=== PATIENT | male | born 1970 | race Hispanic/Latino ===

== ENCOUNTER 2017-12-15 19:54 | Emergency (ER) | payer MEDICARE, OTHER ==
[2017-12-15] MEDS ORDERED: TETRACAINE HCL 0.5% 4 ML OPHTH SOLN ONE ×2 (20:20→20:27)
[2017-12-15] MEDS ORDERED: NA BORATE/BORIC AC/H2O/NACL 120 ML OPHTH IRRIG SOLN ONE ×2 (20:20→20:28)
[2017-12-15] MEDS ORDERED: FLUORESCEIN SODIUM 0.6 MG STRIP ONE ×2 (20:20→20:28)
== END 2017-12-15 20:52 | disposition home or self-care (01) ==
LOC: EDH 19:54
DX: S05.01XA Injury of conjunctiva and corneal abrasion without foreign body, right eye, initial encounter (principal); I25.10 Atherosclerotic heart disease of native coronary artery without angina pectoris; E78.5 Hyperlipidemia, unspecified; E11.9 Type 2 diabetes mellitus without complications; Z79.4 Long term (current) use of insulin; Z95.1 Presence of aortocoronary bypass graft; X58.XXXA Exposure to other specified factors, initial encounter; Y93.89 Activity, other specified; Y92.89 Other specified places as the place of occurrence of the external cause; Y99.8 Other external cause status

== ENCOUNTER 2018-05-08 12:02 | Emergency (ER) | payer OTHER ==
[2018-05-08] MEDS ORDERED: SODIUM CHLORIDE 0.9% 1000ML 1,000 ML IV ONE (13:57)
[2018-05-08 14:12] LABS: BASOPHILS % (AUTO) 0.4 % (0.0-5.0); EOSINOPHILS % (AUTO) 0.7 % (0.0-8.0); HEMATOCRIT 47.3 % (42-54); LYMPHOCYTES % (AUTO) 37.9 % (21.0-51.0); MEAN CORPUSCULAR HEMOGLOBIN 31.6 pg (27.0-33.0); MEAN CORPUSCULAR HGB CONC 34.3 g/dL (32.0-36.0); MEAN CORPUSCULAR VOLUME 92.2 fL (79-99); MONOCYTES % (AUTO) 8.1 % (3.0-13.0); NEUTROPHILS % (AUTO) 52.9 % (40.0-77.0); NUCLEATED RED BLOOD CELLS 0.1 % (0.0-0.19); PLATELET COUNT (AUTO) 173 K/uL (130-400); RED BLOOD CELL COUNT(AUTO) 5.13 MIL/uL (4.50-6.20); RED CELL DISTRIBUTION WIDTH 12.6 % (11.0-15.5); WHITE BLOOD COUNT (AUTO) 6.9 K/uL (4.8-10.8)
[2018-05-08 14:25] LABS: CREATININE 0.8 mg/dL (0.5-1.5); POTASSIUM 3.8 mmol/L (3.5-5.1)
[2018-05-08] MEDS ORDERED: IOHEXOL-350 75 ML VIAL IV ONE (14:25)
[2018-05-08 14:30] LABS: BILIRUBIN,TOTAL 0.5 mg/dL (0.2-1.0); TOTAL PROTEIN, SERUM 7.9 g/dL (6.0-8.3)
[2018-05-08 14:54] LABS: OCCULT BLOOD STOOL SINGLE ONLY POSITIVE (NEGATIVE)
== END 2018-05-08 16:20 | disposition home or self-care (01) ==
LOC: EDH 12:02
DX: K52.9 Noninfective gastroenteritis and colitis, unspecified (principal); E11.9 Type 2 diabetes mellitus without complications; E78.5 Hyperlipidemia, unspecified; I25.10 Atherosclerotic heart disease of native coronary artery without angina pectoris; Z91.041 Radiographic dye allergy status; Z87.891 Personal history of nicotine dependence; Z98.890 Other specified postprocedural states
CPT/HCPCS: 36415; 74177; 80053; 82270; 83630; 85025; 87040 ×2; 87046; 87324; 87804 ×2; 96360; 96361; 99284; J7030; Q9967

== ENCOUNTER → 2018-06-05 | Outpatient (CLI) | payer OTHER | END | disposition home or self-care (01) | LOC: SHCH 14:45 | PROVIDERS: ATTEND Internal Medicine Cardiovascular Disease | DX: I51.7 Cardiomegaly (principal) | CPT/HCPCS: 93306 ==

== ENCOUNTER → 2018-06-13 | Outpatient (CLI) | payer OTHER ==
[~2018-06-13] VITALS: Ht 167.6 cm; Wt 95.3 kg
[~2018-06-13] MED LIST: REGADENOSON 0.4 MG/5 ML PF SYG IVP ONE; REGADENOSON 0.4 MG/5 ML PF SYG IVP SCH
== END | disposition home or self-care (01) ==
LOC: SHCH 10:00
PROVIDERS: ATTEND Internal Medicine Cardiovascular Disease
DX: I25.9 Chronic ischemic heart disease, unspecified (principal)
CPT/HCPCS: 78452; 93017; 96374; A9500 ×2; J2785

== ENCOUNTER 2018-07-16 20:37 | Emergency (ER) | payer OTHER ==
[2018-07-16 21:16] LABS: APPEARANCE,URINE Clear (CLEAR); BILIRUBIN,URINE Negative (NEGATIVE); COLOR,URINE Yellow (YELLOW); GLUCOSE, URINE (UA) >=1000 mg/dL (NEGATIVE); KETONES,URINE Trace mg/dL (NEGATIVE); LEUKOCYTE ESTERASE ,URINE Negative (NEGATIVE); NITRATE,URINE Negative (NEGATIVE); OCCULT BLOOD,URINE Negative (NEGATIVE); PROTEIN,URINE Negative (NEGATIVE)
[2018-07-16 21:33] LABS: BACTERIA,URINE None Seen /HPF (None Seen); RBC,URINE None Seen /HPF (0-1); SQUAMOUS EPITHELIAL CELL,UR None Seen /HPF (0-2); WBC,URINE None Seen /HPF (0-1)
[2018-07-16] MEDS ORDERED: ONDANSETRON HCL 4 MG/2 ML VIAL ONE (21:34)
[2018-07-16 21:45] LABS: BASOPHILS % (AUTO) 0.9 % (0.0-5.0); EOSINOPHILS % (AUTO) 1.2 % (0.0-8.0); HEMATOCRIT 44.6 % (42-54); LYMPHOCYTES % (AUTO) 41.3 % (21.0-51.0); MEAN CORPUSCULAR HEMOGLOBIN 32.4 pg (27.0-33.0); MEAN CORPUSCULAR VOLUME 92.6 fL (79-99); MONOCYTES % (AUTO) 8.9 % (3.0-13.0); NEUTROPHILS % (AUTO) 47.7 % (40.0-77.0); NUCLEATED RED BLOOD CELLS 0.2 % (0.0-0.19); PLATELET COUNT (AUTO) 155 K/uL (130-400); RED BLOOD CELL COUNT(AUTO) 4.81 MIL/uL (4.50-6.20); RED CELL DISTRIBUTION WIDTH 12.4 % (11.0-15.5); WHITE BLOOD COUNT (AUTO) 6.8 K/uL (4.8-10.8)
[2018-07-16 21:58] LABS: CREATININE 0.9 mg/dL (0.5-1.5); POTASSIUM 4.1 mmol/L (3.5-5.1)
[2018-07-16 22:02] LABS: ALBUMIN 3.8 g/dL (3.5-5.0); BILIRUBIN,TOTAL 0.5 mg/dL (0.2-1.0); TOTAL PROTEIN, SERUM 7.4 g/dL (6.0-8.3)
[2018-07-16] MEDS ORDERED: LIDOCAINE HCL 2% VISCOUS 15 ML UDCUP ONE (23:43)
[2018-07-16] MEDS ORDERED: MAG HYDROX/AL HYDROX/SIMETH ES 30 ML SUSP UDCUP ONE (23:43)
[2018-07-16] MEDS ORDERED: INSULIN HUMULIN R 100 UNIT/ML 3ML ONE (23:44)
== END 2018-07-17 00:13 | disposition home or self-care (01) ==
LOC: EDH 20:37
DX: K29.70 Gastritis, unspecified, without bleeding (principal); E11.65 Type 2 diabetes mellitus with hyperglycemia; E78.5 Hyperlipidemia, unspecified; I25.10 Atherosclerotic heart disease of native coronary artery without angina pectoris; Z79.4 Long term (current) use of insulin; Z87.891 Personal history of nicotine dependence; Z91.041 Radiographic dye allergy status
CPT/HCPCS: 36415; 74176; 80053; 81001; 82550; 82948; 83690; 84484; 85025; 93005; 96361; 96374; 96375; 99285; J1815; J2405

== ENCOUNTER 2018-10-07 22:28 | Emergency (ER) | payer OTHER ==
[2018-10-07] MEDS ORDERED: FAMOTIDINE/PF 20 MG/2 ML VIAL IV ONE (23:26)
[2018-10-07 23:51] LABS: BASOPHILS % (AUTO) 0.6 % (0.0-5.0); EOSINOPHILS % (AUTO) 0.7 % (0.0-8.0); HEMATOCRIT 44.7 % (42-54); MEAN CORPUSCULAR HEMOGLOBIN 31.5 pg (27.0-33.0); MEAN CORPUSCULAR HGB CONC 34.3 g/dL (32.0-36.0); MONOCYTES % (AUTO) 7.2 % (3.0-13.0); NEUTROPHILS % (AUTO) 49.5 % (40.0-77.0); NUCLEATED RED BLOOD CELLS 0.1 % (0.0-0.19); PLATELET COUNT (AUTO) 146 K/uL (130-400); RED BLOOD CELL COUNT(AUTO) 4.86 MIL/uL (4.50-6.20); RED CELL DISTRIBUTION WIDTH 12.7 % (11.0-15.5)
[2018-10-08 00:08] LABS: INR 0.94 (0.85-1.15); PARTIAL THROMBOPLASTIN TIME 23.8 SEC (26.3-35.5); PROTHROMBIN TIME 9.9 SEC (9.6-11.6)
[2018-10-08 00:11] LABS: ALBUMIN 3.8 g/dL (3.5-5.0); BILIRUBIN,TOTAL 0.8 mg/dL (0.2-1.0); CREATININE 0.9 mg/dL (0.5-1.5); MAGNESIUM 2.5 mg/dL (1.80-2.40); POTASSIUM 4.4 mmol/L (3.5-5.1); TOTAL PROTEIN, SERUM 7.2 g/dL (6.0-8.3)
[2018-10-08 00:39] LABS: B-TYPE NATRIURETIC PEPTIDE 16 pg/mL (0-100)
[2018-10-08] MEDS ORDERED: INSULIN HUMULIN R 100 UNIT/ML 3ML ONE (01:00)
[2018-10-08] MEDS ORDERED: SODIUM CHLORIDE 0.9% 500ML 500 ML IV ONE (01:00)
[2018-10-08] MEDS ORDERED: METOCLOPRAMIDE 10 MG/2 ML VIAL ONE (01:38)
== END 2018-10-08 02:05 | disposition home or self-care (01) ==
LOC: EDH 22:28
DX: E11.65 Type 2 diabetes mellitus with hyperglycemia (principal); E86.9 Volume depletion, unspecified; R10.13 Epigastric pain; K21.9 Gastro-esophageal reflux disease without esophagitis; I25.10 Atherosclerotic heart disease of native coronary artery without angina pectoris; E78.5 Hyperlipidemia, unspecified; Z79.4 Long term (current) use of insulin; Z91.11 Patient's noncompliance with dietary regimen; Z87.891 Personal history of nicotine dependence; Z91.041 Radiographic dye allergy status
CPT/HCPCS: 36415; 71045; 80053; 82550; 83605; 83690; 83735; 83880; 84484; 85025; 85610; 85730; 93005; 96374; 96375 ×2; 99285; J1815; J2765; J3490; J7040

== ENCOUNTER → 2018-11-28 | Outpatient (CLI) | payer OTHER | END | disposition home or self-care (01) | LOC: RAH 13:18 | PROVIDERS: ATTEND Family Medicine | DX: I65.23 Occlusion and stenosis of bilateral carotid arteries (principal); I10 Essential (primary) hypertension | CPT/HCPCS: 93880 ==

== ENCOUNTER 2019-02-28 03:12 | Emergency (ER) | payer OTHER ==
[2019-02-28 03:33] LABS: BASOPHILS % (AUTO) 0.6 % (0.0-5.0); EOSINOPHILS % (AUTO) 1.3 % (0.0-8.0); HEMATOCRIT 45.4 % (42-54); LYMPHOCYTES % (AUTO) 52.3 % (21.0-51.0); MEAN CORPUSCULAR HEMOGLOBIN 30.8 pg (27.0-33.0); MEAN CORPUSCULAR HGB CONC 33.3 g/dL (32.0-36.0); MEAN CORPUSCULAR VOLUME 92.7 fL (79-99); MONOCYTES % (AUTO) 6.8 % (3.0-13.0); NEUTROPHILS % (AUTO) 38.7 % (40.0-77.0); PLATELET COUNT (AUTO) 176 K/uL (130-400); RED CELL DISTRIBUTION WIDTH 12.1 % (11.0-15.5); WHITE BLOOD COUNT (AUTO) 7.8 K/uL (4.8-10.8)
[2019-02-28 03:43] LABS: CREATININE 0.7 mg/dL (0.5-1.5); POTASSIUM 4.4 mmol/L (3.5-5.1)
[2019-02-28 03:48] LABS: ALBUMIN 3.9 g/dL (3.5-5.0); BILIRUBIN,TOTAL 0.5 mg/dL (0.2-1.0); CRP QUANTITATIVE 1.9 mg/L (0.00-9.0); TOTAL PROTEIN, SERUM 7.7 g/dL (6.0-8.3)
[2019-02-28 04:04] LABS: INR 0.91 (0.85-1.15); PROTHROMBIN TIME 9.6 SEC (9.6-11.6)
[2019-02-28] MEDS ORDERED: ASPIRIN 325 MG TABLET ONE (04:08)
[2019-02-28] MEDS ORDERED: TRAMADOL HCL 50 MG TABLET ONE (04:08)
[2019-02-28 04:44] LABS: ERYTHROCYTE SEDIMENTATION RATE 10 MM/HR (0-20)
== END 2019-02-28 06:04 | disposition home or self-care (01) ==
LOC: EDH 03:12
DX: M79.632 Pain in left forearm (principal); E11.65 Type 2 diabetes mellitus with hyperglycemia; I10 Essential (primary) hypertension; E78.5 Hyperlipidemia, unspecified; I25.10 Atherosclerotic heart disease of native coronary artery without angina pectoris; Z91.041 Radiographic dye allergy status; Z98.890 Other specified postprocedural states
CPT/HCPCS: 36415; 71045; 73070; 80053; 82550; 84484; 85025; 85610; 85651; 85730; 86140; 93005; 93971

== ENCOUNTER 2019-04-09 15:54 | Observation (INO) | payer OTHER ==
[2019-04-09] VITALS (17 sets, daily range): BP systolic 109–135; BP diastolic 66–85
[~2019-04-09 15:54] MED LIST changes: +CLOP75TA14 PO; +FISH1CAP20 PO; +HUMLIS7525 SQ; -REGADENOSON 0.4 MG/5 ML PF SYG IVP ONE; -REGADENOSON 0.4 MG/5 ML PF SYG IVP SCH; +SIMV80TA91 PO
[2019-04-09] MEDS ORDERED: ONDANSETRON HCL 4 MG/2 ML VIAL ONE (16:16)
[2019-04-09] MEDS ORDERED: TETANUS/DIPHTHERIA TOXOID [ADULT] 0.5 ML VIAL IM ONE (16:16)
[2019-04-09] MEDS ORDERED: CEFAZOLIN SODIUM 1 GM VIAL ONE ×2 (16:16→19:22)
[2019-04-09] MEDS ORDERED: MORPHINE SULFATE 4 MG/1ML SYG ONE (16:16)
[2019-04-09] MEDS ORDERED: SODIUM CHLORIDE 0.9% 1000ML 1,000 ML IV ONE (16:17)
[2019-04-09] MEDS ORDERED: SODIUM CHLORIDE 0.9% 100 ML IV ONE (16:19)
[2019-04-09 16:43] LABS: ABG OXYGEN SATURATION 57.6 % (95.0-99.0); BASE EXCESS,VENOUS BLOOD GAS -6.4 (-2.0-3.0); HCO3,VENOUS BLOOD GAS 19.2 (21.0-28.0); PCO2,VENOUS BLOOD GAS 38 (35-48); PH,VENOUS BLOOD GAS 7.316 (7.350-7.450)
[2019-04-09 16:46] LABS: BASOPHILS % (AUTO) 0.5 % (0.0-5.0); EOSINOPHILS % (AUTO) 0.4 % (0.0-8.0); HEMATOCRIT 43.8 % (42-54); LYMPHOCYTES % (AUTO) 35.8 % (21.0-51.0); MEAN CORPUSCULAR HEMOGLOBIN 30.7 pg (27.0-33.0); MEAN CORPUSCULAR HGB CONC 33.8 g/dL (32.0-36.0); MEAN CORPUSCULAR VOLUME 90.9 fL (79-99); NEUTROPHILS % (AUTO) 57.1 % (40.0-77.0); PLATELET COUNT (AUTO) 155 K/uL (130-400); RED BLOOD CELL COUNT(AUTO) 4.82 MIL/uL (4.50-6.20); RED CELL DISTRIBUTION WIDTH 12.6 % (11.0-15.5); WHITE BLOOD COUNT (AUTO) 8.4 K/uL (4.8-10.8)
[2019-04-09 17:19] LABS: CREATININE 0.8 mg/dL (0.5-1.5); POTASSIUM 4.2 mmol/L (3.5-5.1)
[2019-04-09 17:21] LABS: INR 0.94 (0.85-1.15); PARTIAL THROMBOPLASTIN TIME 22.6 SEC (26.3-35.5); PROTHROMBIN TIME 9.9 SEC (9.6-11.6)
[2019-04-09 17:23] LABS: ALBUMIN 3.9 g/dL (3.5-5.0); BILIRUBIN,TOTAL 0.5 mg/dL (0.2-1.0)
[2019-04-09] MEDS ORDERED: ROPIVACAINE 0.5% 5MG/ML 30ML IJ ONE (19:20)
[2019-04-09] MEDS ORDERED: MIDAZOLAM HCL 1 MG/ML 2ML VIAL ONE ×2 (19:21→20:09)
[2019-04-09] MEDS ORDERED: FENTANYL CITRATE PF 50 MCG/1 ML 2ML VIAL ONE ×2 (19:21→20:11)
[2019-04-09] MEDS ORDERED: KETAMINE 50MG/ML SYRINGE 50 MG/ML DISP.SYRIN IV ONE ×2 (19:47→20:17)
[2019-04-09] MEDS ORDERED: SODIUM CHLORIDE 0.9% 1000ML 1,000 ML IV SCH (20:00)
[2019-04-09] MEDS ORDERED: LIDOCAINE HCL 1% 20 ML VIAL ONE (20:05)
[2019-04-09] MEDS ORDERED: BUPIVACAINE/PF 0.5% 30ML VIAL ONE (20:05)
[2019-04-09] MEDS: SODIUM CHLORIDE 0.9% 1000ML 1,000 ML IV SCH ×2 (20:40→22:58)
[2019-04-09] MEDS ORDERED: KETOROLAC TROMETHAMINE 15MG/ML IV PRN (20:45)
[2019-04-09] MEDS ORDERED: HYDROCODONE/ACETAMINOPHEN 5/325 MG TAB PO PRN ×2 (20:45)
[2019-04-09] MEDS ORDERED: POTASSIUM CHLORIDE 10% ELIXIR 20 MEQ/15 ML UDCUP PO PRN (20:45)
[2019-04-09] MEDS ORDERED: DIPHENHYDRAMINE HCL 25 MG CAPSULE PO PRN (20:45)
[2019-04-09] MEDS ORDERED: POTASSIUM CHLORIDE 20MEQ/100ML 100 ML IV PRN (20:45)
[2019-04-09] MEDS ORDERED: POTASSIUM CHLORIDE 20 MEQ ERTAB PO PRN (20:45)
[2019-04-09] MEDS ORDERED: TEMAZEPAM 15 MG CAPSULE PO PRN (20:45)
[2019-04-09] MEDS ORDERED: LIDOCAINE HCL-MPF 1% 2ML VIAL IV PRN (20:45)
[2019-04-09] MEDS: INSULIN HUMULIN R 100 UNIT/ML 3ML SQ SCH (21:00)
[2019-04-09 22:31] LABS: CREATININE 0.6 mg/dL (0.5-1.5); POTASSIUM 3.7 mmol/L (3.5-5.1)
[2019-04-10] VITALS (7 sets, daily range): BP systolic 96–137; BP diastolic 50–74
[2019-04-10] MEDS: CEFAZOLIN SODIUM 1 GM VIAL IVP SCH ×2 (04:16→11:32)
[2019-04-10] MEDS: SODIUM CHLORIDE 0.9% 1000ML 1,000 ML IV SCH (05:33)
[2019-04-10] MEDS: INSULIN HUMULIN R 100 UNIT/ML 3ML SQ SCH ×2 (06:44→11:40)
[2019-04-10] MEDS ORDERED: CEFAZOLIN SODIUM 1 GM VIAL IVP SCH (08:00)
[2019-04-10] MEDS ORDERED: ENOXAPARIN SODIUM 40 MG/0.4 ML SYRINGE SQ SCH (09:00)
[2019-04-10] MEDS ORDERED: CEPH500B PO (12:07)
[2019-04-10] MEDS ORDERED: ACET1TAB12 PO (12:07)
--- NOTE | 2019-04-10 14:00 | NUR ---
DISCHARGE PATIENT GIVEN DISCHARGE INSTRUCTIONS VIA TEACH BACK. 20G PIV TO RAC DISCONTINUED, TIP INTACT. PATIENT TO FOLLOW UP WITH DR. OTERO ON 04/18/19 AT 1315. WOUND CARE AND SIGNS AND SYMPTOMS OF INFECTION INSTRUCTIONS GIVEN AND VERBALLY EXPLAINED. PATIENT VOICED UNDERSTANDING. CEPHALEXIN 500MG 1 CAP PO Q8H X 7 DAYS AND TYLENOL #3 1 TAB PO Q6H/PRN CALLED INTO [facility] BY DR. OTERO. PATIENT STABLE AT THIS TIME AND DENIES ANY PAIN. DEMETRICE CELESTIN WHEELED PATIENT TO LOBBY.
== END 2019-04-10 14:00 | disposition home or self-care (01) ==
LOC: EDH 15:54 → EDHIP 17:00 → 4BH 18:39
PROVIDERS: ADMIT Orthopaedic Surgery; ATTEND Orthopaedic Surgery
DX: S61.243A Puncture wound with foreign body of left middle finger without damage to nail, initial encounter (principal); S61.245A Puncture wound with foreign body of left ring finger without damage to nail, initial encounter; E78.5 Hyperlipidemia, unspecified; E11.65 Type 2 diabetes mellitus with hyperglycemia; I25.810 Atherosclerosis of coronary artery bypass graft(s) without angina pectoris; E78.00 Pure hypercholesterolemia, unspecified; Z79.4 Long term (current) use of insulin; Z91.041 Radiographic dye allergy status; W29.4XXA Contact with nail gun, initial encounter; Y93.89 Activity, other specified; Y92.89 Other specified places as the place of occurrence of the external cause; Y99.8 Other external cause status
CPT/HCPCS: 10120; 36415; 36600; 73140; 80053; 82010; 82803; 82948 ×5; 85025; 85610; 85730; 88300; 93005; 96372; 96374; 96376; 99284; A4930; A6223; A6445; G0378 ×8; J0690 ×4; J1650; J1815 ×2; J2250 ×2; J2270; J2405; J2795; J3010 ×2; J3490 ×3; J7030; 80048; 90714

== ENCOUNTER 2019-05-27 18:09 | Emergency (ER) | payer OTHER ==
[~2019-05-27 18:09] MED LIST changes: +ACET1TAB12 PO; +CEPH500B PO
[2019-05-27 19:17] LABS: BASOPHILS % (AUTO) 0.4 % (0.0-5.0); EOSINOPHILS % (AUTO) 1.3 % (0.0-8.0); HEMATOCRIT 42.4 % (42-54); LYMPHOCYTES % (AUTO) 42.5 % (21.0-51.0); MEAN CORPUSCULAR HEMOGLOBIN 30.6 pg (27.0-33.0); MEAN CORPUSCULAR HGB CONC 33.7 g/dL (32.0-36.0); MEAN CORPUSCULAR VOLUME 90.6 fL (79-99); MONOCYTES % (AUTO) 6.9 % (3.0-13.0); NEUTROPHILS % (AUTO) 48.8 % (40.0-77.0); PLATELET COUNT (AUTO) 152 K/uL (130-400); RED BLOOD CELL COUNT(AUTO) 4.68 MIL/uL (4.50-6.20); RED CELL DISTRIBUTION WIDTH 12.7 % (11.0-15.5); WHITE BLOOD COUNT (AUTO) 7.1 K/uL (4.8-10.8)
[2019-05-27 19:38] LABS: CREATININE 0.9 mg/dL (0.5-1.5); POTASSIUM 4.1 mmol/L (3.5-5.1)
[2019-05-27 19:43] LABS: ALBUMIN 3.5 g/dL (3.5-5.0); BILIRUBIN,TOTAL 0.5 mg/dL (0.2-1.0); TOTAL PROTEIN, SERUM 7.1 g/dL (6.0-8.3)
[2019-05-27] MEDS ORDERED: SODIUM CHLORIDE 0.9% 1000ML 1,000 ML IV ONE (20:22)
[2019-05-27] MEDS ORDERED: INSULIN HUMULIN R 100 UNIT/ML 3ML ONE (20:22)
== END 2019-05-27 22:30 | disposition home or self-care (01) ==
LOC: EDH 18:09
DX: E11.621 Type 2 diabetes mellitus with foot ulcer (principal); E11.65 Type 2 diabetes mellitus with hyperglycemia; I25.810 Atherosclerosis of coronary artery bypass graft(s) without angina pectoris; E78.5 Hyperlipidemia, unspecified; Z95.1 Presence of aortocoronary bypass graft; Z91.041 Radiographic dye allergy status
CPT/HCPCS: 36415; 73620; 80053; 82948; 85025; 85651; 86140; 87040 ×2; 96361; 96374; 99284; J1815; J7030

== ENCOUNTER → 2019-07-10 | Outpatient (CLI) | payer OTHER ==
[~2019-07-10] MED LIST changes: +AMOX-426 PO; +CLIN300C9 PO
== END | disposition home or self-care (01) ==
LOC: RAH 09:45
PROVIDERS: ATTEND Family Medicine
DX: I08.2 Rheumatic disorders of both aortic and tricuspid valves (principal); I11.9 Hypertensive heart disease without heart failure; I49.3 Ventricular premature depolarization; I25.2 Old myocardial infarction
CPT/HCPCS: 93306; 93356

== ENCOUNTER 2019-10-06 07:53 | Inpatient (IN) | payer OTHER ==
[~2019-10-06] VITALS: Ht 165.1 cm; Wt 86.4 kg
[~2019-10-06 07:53] MED LIST changes: -AMOX-426 PO; -CLIN300C9 PO
[2019-10-06] MEDS ORDERED: POTASSIUM CHLORIDE 20MEQ/100ML 100 ML IV ONE (08:21)
[2019-10-06] MEDS ORDERED: ACETAMINOPHEN EXTRA STRENGTH 500 MG TABLET ONE (08:54)
[2019-10-06 09:13] LABS: BASOPHILS % (AUTO) 0.2 % (0.0-5.0); EOSINOPHILS % (AUTO) 0.1 % (0.0-8.0); HEMATOCRIT 44.6 % (42-54); LYMPHOCYTES % (AUTO) 6.8 % (21.0-51.0); MEAN CORPUSCULAR HEMOGLOBIN 31.1 pg (27.0-33.0); MEAN CORPUSCULAR HGB CONC 33.6 g/dL (32.0-36.0); MEAN CORPUSCULAR VOLUME 92.5 fL (79-99); MONOCYTES % (AUTO) 4.3 % (3.0-13.0); NEUTROPHILS % (AUTO) 88.3 % (40.0-77.0); PLATELET COUNT (AUTO) 137 K/uL (130-400); RED BLOOD CELL COUNT(AUTO) 4.82 MIL/uL (4.50-6.20); RED CELL DISTRIBUTION WIDTH 12.3 % (11.0-15.5)
[2019-10-06] MEDS ORDERED: CEFTRIAXONE SODIUM 1 GM ONE (09:48)
[2019-10-06 09:52] LABS: INR 0.93 (0.85-1.15); PARTIAL THROMBOPLASTIN TIME 24.6 SEC (26.3-35.5); PROTHROMBIN TIME 10.1 SEC (9.6-11.6)
[2019-10-06 09:56] LABS: ALANINE AMINOTRANSFERASE 21 U/L (12-78); ALBUMIN 3.6 g/dL (3.5-5.0); ASPARTATE AMINOTRANSFERASE 10 U/L (10-37); BILIRUBIN,TOTAL 0.8 mg/dL (0.2-1.0); CARBON DIOXIDE 24 mmol/L (21-32); CHLORIDE 102 mmol/L (101-111); CREATINE KINASE, TOTAL 64 U/L (21-232); CREATININE 0.8 mg/dL (0.5-1.5); GLOMERULAR FILTR. RATE CALC 108 mL/min (>60); GLUCOSE,RANDOM 280 mg/dL (70-105); MYOGLOBIN 31 ng/mL (10-92); POTASSIUM 3.9 mmol/L (3.5-5.1); SODIUM SERUM 134 mmol/L (136-145); TOTAL PROTEIN, SERUM 6.9 g/dL (6.0-8.3); TROPONIN I < 0.04 ng/mL (0.00-0.06); UREA NITROGEN, BLOOD 12 mg/dL (7-18)
[2019-10-06 12:02] LABS: APPEARANCE,URINE CLEAR (CLEAR); BILIRUBIN,URINE NEGATIVE (NEGATIVE); COLOR,URINE YELLOW (YELLOW); GLUCOSE, URINE (UA) >=1000 mg/dL (NEGATIVE); KETONES,URINE 15 mg/dL (NEGATIVE); LEUKOCYTE ESTERASE ,URINE NEGATIVE (NEGATIVE); NITRATE,URINE NEGATIVE (NEGATIVE); OCCULT BLOOD,URINE NEGATIVE (NEGATIVE); PH,URINE 5.5 (5.0-8.0); PROTEIN,URINE NEGATIVE (NEGATIVE); UROBILINOGEN,URINE 0.2 mg/dL (0.2-1.0)
[2019-10-06 12:38] LABS: BACTERIA,URINE Rare /HPF (None Seen); RBC,URINE None Seen /HPF (0-1); SQUAMOUS EPITHELIAL CELL,UR Rare /HPF (0-2); WBC,URINE 0-1 /HPF (0-1)
[2019-10-06] MEDS ORDERED: VANCOMYCIN 1GM+NS 250ML 250 ML IV ONE (21:21)
[2019-10-06] MEDS ORDERED: ZOSYN 3.375GM+NS 50ML 50 ML IV ONE (21:21)
[2019-10-07] MEDS ORDERED: VANCOMYCIN PROTOCOL PER PHARMACY IV SCH ×2 (00:15→13:15)
[2019-10-07] MEDS ORDERED: PHARMACY COMMUNICATION MISC SCH (00:15)
[2019-10-07] MEDS: ZOSYN 3.375GM+NS 50ML 50 ML IV SCH ×5 (01:00→21:15)
[2019-10-07] MEDS ORDERED: ZOSYN 3.375GM+NS 50ML 50 ML IV ONE ×3 (04:01→23:47)
[2019-10-07 08:42] LABS: HEMATOCRIT 41.9 % (42-54); MEAN CORPUSCULAR HGB CONC 33.4 g/dL (32.0-36.0); MEAN CORPUSCULAR VOLUME 92.7 fL (79-99); RED BLOOD CELL COUNT(AUTO) 4.52 MIL/uL (4.50-6.20); RED CELL DISTRIBUTION WIDTH 12.3 % (11.0-15.5); WHITE BLOOD COUNT (AUTO) 4.4 K/uL (4.8-10.8)
[2019-10-07 08:55] LABS: CREATININE 0.7 mg/dL (0.5-1.5); POTASSIUM 3.5 mmol/L (3.5-5.1)
--- NOTE | 2019-10-07 12:51 | NUR ---
IA- SPOKE TO SPOUSE FOR DISCHARGE PLANNING STATES LIVES WITH SHERI JONAS, HOME SAFE AND ACCESSIBLE USES A CANE FOR AMBULATION, HAS DMII X20 YEARS, DISABLE, NEEDS ASSISTANCE WITH BATHING AND DRESSING SECOND TO WEAKNESS AND DIZZINESS, STATES WAS WITH DR. GEORGE FOR MANY YEARS, JUST SWITCHED TO DR. GUY, GLUCOMETER RECENTLY BBTESHA, SPOUSE STATES HAS NOT BEEN REPLACED NOR HAS PATIENT SEEN MD LATELY., SPOUSE OT TRANSPORT AT DISCHARGE- NO HOME HEALTH, NO PROVIDER SERVICES EXPLAINED PLAN OF CARE LIKELY FOR THIS DIAGNOSIS, WITH OPTIONS= SPOUSE TO DISCUSS- LIST OF SNFS IN NETWORK WITH INSURANCE GIVEN TO SPOUSE SO SHE AND PATIENT CAN DISCUSS IF PATIENT NEEDS PLACEMENT Addendum: 10/07/19 at 1258 by OMARI WASHBURN RN CM Amended: Links added.
[2019-10-07] MEDS ORDERED: LABETALOL 20 MG/4 ML DISP.SYRIN IV PRN (13:15)
[2019-10-07] MEDS ORDERED: ONDANSETRON HCL 4 MG/2 ML VIAL IVP PRN (13:15)
[2019-10-07] MEDS ORDERED: ACETAMINOPHEN-CODEINE 300/30MG TAB PO PRN (13:15)
[2019-10-07] MEDS ORDERED: HYDRALAZINE HCL 20 MG/ML VIAL IV PRN (13:15)
[2019-10-07] MEDS ORDERED: LACTULOSE 20 GM/30 ML UDCUP PO PRN (13:15)
[2019-10-07] MEDS ORDERED: LOPERAMIDE 1 MG/7.5 ML UDCUP PO PRN (13:15)
[2019-10-07] MEDS ORDERED: COMPOUND IV REFRIGERATED 1 EACH IVSOLN MISC PRN (14:30)
[2019-10-07] MEDS: VANCOMYCIN 1.25 GM in SODIUM CHLORIDE 0.9% 250 ML IV SCH (21:00)
[2019-10-08] MEDS: ZOSYN 3.375GM+NS 50ML 50 ML IV SCH ×7 (05:15→23:39)
[2019-10-08] MEDS ORDERED: ZOSYN 3.375GM+NS 50ML 50 ML IV ONE ×2 (05:50→15:31)
[2019-10-08] MEDS: PANTOPRAZOLE SODIUM 40 MG TABLET.DR PO SCH (09:00)
[2019-10-08] MEDS: VANCOMYCIN 1.25 GM in SODIUM CHLORIDE 0.9% 250 ML IV SCH ×3 (09:00→23:36)
--- NOTE | 2019-10-08 09:56 | NUR ---
patient still in ER department, awaiting for patient to be transferred to medical floor in order to be able to initiate Skilled Physical Therapy Evaluation. Addendum: 10/08/19 at 0957 by MANDEEP VIDAL, PT PT Amended: Links added.
[2019-10-08] MEDS: ENOXAPARIN SODIUM 40 MG/0.4 ML SYRINGE SQ SCH (21:00)
[2019-10-08] MEDS ORDERED: GLUCAGON 1MG KIT 1 MG ML IM PRN (23:15)
[2019-10-08] MEDS ORDERED: POTASSIUM CHLORIDE 20MEQ/100ML 100 ML IV PRN (23:15)
[2019-10-08] MEDS ORDERED: DEXTROSE 50%-WATER 50 ML DISP.SYRIN IV PRN (23:15)
[2019-10-08] MEDS ORDERED: POTASSIUM CHLORIDE 10% ELIXIR 20 MEQ/15 ML UDCUP PO PRN (23:15)
[2019-10-08] MEDS ORDERED: LIDOCAINE HCL-MPF 1% 2ML VIAL IV PRN (23:15)
--- NOTE | 2019-10-08 23:18 | NUR ---
paged toño vásquez and he ordered sliding scale #1 for accucheck 257 and hypokalemia protocol po.
[2019-10-08] MEDS ORDERED: INSULIN HUMULIN R 100 UNIT/ML 3ML ONE (23:27)
[2019-10-08] MEDS ORDERED: POTASSIUM CHLORIDE 20 MEQ ERTAB PO ONE (23:28)
[2019-10-09 00:32] VITALS: BP 141/75
[2019-10-09] MEDS: ZOSYN 3.375GM+NS 50ML 50 ML IV SCH ×3 (04:55→19:23)
[2019-10-09] MEDS ORDERED: INSULIN HUMULIN R 100 UNIT/ML 3ML ONE (05:30)
[2019-10-09] MEDS: INSULIN HUMULIN R 100 UNIT/ML 3ML SQ SCH ×4 (05:34→20:38)
[2019-10-09 06:22] VITALS: BP 154/76
[2019-10-09 08:00] VITALS: BP 102/56
[2019-10-09] MEDS: PANTOPRAZOLE SODIUM 40 MG TABLET.DR PO SCH (10:45)
[2019-10-09] MEDS: VANCOMYCIN 1.25 GM in SODIUM CHLORIDE 0.9% 250 ML IV SCH ×2 (10:46→19:22)
[2019-10-09] MEDS: ENOXAPARIN SODIUM 40 MG/0.4 ML SYRINGE SQ SCH ×2 (10:47→19:23)
[2019-10-09 12:00] VITALS: BP 110/65
[2019-10-09] MEDS: POTASSIUM CHLORIDE 20 MEQ ERTAB PO PRN ×2 (13:32→18:07)
[2019-10-09 21:03] VITALS: BP 119/69
[2019-10-10 00:54] VITALS: BP 104/47
[2019-10-10] MEDS: ZOSYN 3.375GM+NS 50ML 50 ML IV SCH (03:58)
[2019-10-10 04:00] VITALS: BP 115/59
[2019-10-10] MEDS: INSULIN HUMULIN R 100 UNIT/ML 3ML SQ SCH ×2 (05:11→11:58)
[2019-10-10 07:42] VITALS: BP 106/57
[2019-10-10] MEDS: VANCOMYCIN 1.25 GM in SODIUM CHLORIDE 0.9% 250 ML IV SCH (09:46)
[2019-10-10] MEDS: PANTOPRAZOLE SODIUM 40 MG TABLET.DR PO SCH (09:47)
[2019-10-10] MEDS: ENOXAPARIN SODIUM 40 MG/0.4 ML SYRINGE SQ SCH (09:47)
[2019-10-10 11:24] VITALS: BP 128/68
[2019-10-10] MEDS ORDERED: AMOX-426 PO (11:26)
[2019-10-10] MEDS ORDERED: CLIN300C9 PO (11:26)
[2019-10-10] MEDS ORDERED: VANCOMYCIN 2 GM in SODIUM CHLORIDE 0.9% 500ML 500 ML IV SCH (13:00)
--- NOTE | 2019-10-10 14:00 | NUR ---
CM Note: [facility] pending appproval for HH and standard walker CM spoke to pt requesting home health for home dressing changes, telephone consent obtained [facility]. Faxed order and clinicals, confirmation received. Pt pending approval for Home Health daily dressing changes and DME standard walker no wheelchair. Pt verbalized he is comfortable using his crutches in the mean time until own wkr delivered, spouse will also assist with dressing until HH established. Primary nurse to teach pt dresing changes and give supplies until HH able to see pt at home. Primary nurse aware. CM to cont to follow up.
[2019-10-10 16:00] VITALS: BP 110/70
== END 2019-10-10 18:45 | disposition home health service (06) | DRG 624 ==
LOC: EDH 07:53 → OBSVTOIN 11:36 → EDHIP 11:36 → 3DH 10-08 20:46
PROVIDERS: ADMIT Internal Medicine Critical Care Medicine; ATTEND Internal Medicine Critical Care Medicine
PROC: 0JBR0ZZ Excision of Left Foot Subcutaneous Tissue and Fascia, Open Approach (ICD-10-PCS; principal; 2019-10-06)
DX: E11.621 Type 2 diabetes mellitus with foot ulcer (principal); L97.529 Non-pressure chronic ulcer of other part of left foot with unspecified severity; K29.70 Gastritis, unspecified, without bleeding; E78.5 Hyperlipidemia, unspecified; Z20.828 Contact with and (suspected) exposure to other viral communicable diseases; I25.10 Atherosclerotic heart disease of native coronary artery without angina pectoris; E11.42 Type 2 diabetes mellitus with diabetic polyneuropathy; I10 Essential (primary) hypertension; B35.1 Tinea unguium; L60.2 Onychogryphosis; J44.9 Chronic obstructive pulmonary disease, unspecified; L03.032 Cellulitis of left toe; E11.622 Type 2 diabetes mellitus with other skin ulcer; Z91.041 Radiographic dye allergy status; Z95.1 Presence of aortocoronary bypass graft; Z82.49 Family history of ischemic heart disease and other diseases of the circulatory system
CPT/HCPCS: 36415; 71045; 73660; 73718; 80048; 80053; 80202; 81001; 82550; 82948; 83605; 83874; 84145; 84484; 85025; 85027; 85610; 85730; 87040; 87070; 87076; 87077; 87088; 87186; 87426; 93005; 93925; 97039; G0378; J0696; J1650; J1815; J2543; J3370; J3480; J7040; J7050

== ENCOUNTER → 2020-08-08 | Outpatient (CLI) | payer OTHER ==
[~2020-08-08] MED LIST changes: -ACET1TAB12 PO; -CEPH500B PO
== END | disposition home or self-care (01) ==
LOC: RAH 10:13
PROVIDERS: ATTEND Internal Medicine
DX: E11.51 Type 2 diabetes mellitus with diabetic peripheral angiopathy without gangrene (principal); E11.9 Type 2 diabetes mellitus without complications
CPT/HCPCS: 93925

== ENCOUNTER → 2021-07-16 | Outpatient (CLI) | payer OTHER | END | disposition home or self-care (01) | LOC: RAH 14:32 | PROVIDERS: ATTEND Internal Medicine | DX: I65.23 Occlusion and stenosis of bilateral carotid arteries (principal); R42 Dizziness and giddiness | CPT/HCPCS: 93880 ==

== ENCOUNTER 2021-11-12 22:22 | Emergency (ER) | payer OTHER ==
[~2021-11-12] VITALS: Ht 167.6 cm; Wt 84.8 kg
[2021-11-12 22:45] LABS: BASOPHILS % (AUTO) 0.5 % (0.0-5.0); EOSINOPHILS % (AUTO) 0.4 % (0.0-8.0); HEMATOCRIT 42.5 % (42-54); LYMPHOCYTES % (AUTO) 39.5 % (21.0-51.0); MEAN CORPUSCULAR HEMOGLOBIN 32.2 pg (27.0-33.0); MEAN CORPUSCULAR HGB CONC 34.8 g/dL (32.0-36.0); MEAN CORPUSCULAR VOLUME 92.6 fL (79-99); MONOCYTES % (AUTO) 6.2 % (3.0-13.0); NEUTROPHILS % (AUTO) 53.3 % (40.0-77.0); PLATELET COUNT (AUTO) 177 K/uL (130-400); RED BLOOD CELL COUNT(AUTO) 4.59 MIL/uL (4.50-6.20); RED CELL DISTRIBUTION WIDTH 12.2 % (11.0-15.5); WHITE BLOOD COUNT (AUTO) 7.5 K/uL (4.8-10.8)
[2021-11-12] MEDS ORDERED: INSULIN HUMULIN R 100 UNIT/ML 3ML ONE (22:54)
[2021-11-12] MEDS ORDERED: 0.9%NACL 1000ML 1,000 ML IV SCH (23:00)
[2021-11-12] MEDS ORDERED: INSULIN HUMULIN R 100 UNIT/ML 3ML IV ONE (23:00)
[2021-11-12 23:07] LABS: ALBUMIN 3.7 g/dL (3.5-5.0); CREATININE 1.2 mg/dL (0.5-1.5); POTASSIUM 4.4 mmol/L (3.5-5.1); TOTAL PROTEIN, SERUM 7.6 g/dL (6.0-8.3)
[2021-11-12 23:55] VITALS: BP 138/74
== END 2021-11-13 00:02 | disposition home or self-care (01) ==
LOC: EDH 22:22
DX: E11.65 Type 2 diabetes mellitus with hyperglycemia (principal); I11.9 Hypertensive heart disease without heart failure; I25.10 Atherosclerotic heart disease of native coronary artery without angina pectoris; Z20.822 Contact with and (suspected) exposure to COVID-19; E78.00 Pure hypercholesterolemia, unspecified; E66.9 Obesity, unspecified; Z68.30 Body mass index [BMI] 30.0-30.9, adult; Z95.1 Presence of aortocoronary bypass graft
CPT/HCPCS: 99285; 96374; 71045; 87635; 96361; 84484; 80053; 85025; 87804 ×2; 82948 ×2; 36415; 93005; J1815; C9803; J7030

== ENCOUNTER 2022-04-09 14:57 | Emergency (ER) | payer OTHER ==
[~2022-04-09] VITALS: Ht 167.6 cm; Wt 87.5 kg
[~2022-04-09 14:57] MED LIST changes: +CLOP-31 PO; -CLOP75TA14 PO
[2022-04-09] MEDS ORDERED: ONDANSETRON 4MG INJ IV ONE (15:30)
[2022-04-09] MEDS ORDERED: 0.9%NACL 1000ML 1,000 ML IV SCH (15:30)
[2022-04-09 16:19] LABS: BASOPHILS % (AUTO) 0.2 % (0.0-5.0); EOSINOPHILS % (AUTO) 0.2 % (0.0-8.0); HEMATOCRIT 46.7 % (42-54); LYMPHOCYTES % (AUTO) 22.5 % (21.0-51.0); MEAN CORPUSCULAR HEMOGLOBIN 30.9 pg (27.0-33.0); MEAN CORPUSCULAR HGB CONC 33.6 g/dL (32.0-36.0); MEAN CORPUSCULAR VOLUME 91.9 fL (79-99); MONOCYTES % (AUTO) 6.1 % (3.0-13.0); NEUTROPHILS % (AUTO) 70.9 % (40.0-77.0); PLATELET COUNT (AUTO) 197 K/uL (130-400); RED BLOOD CELL COUNT(AUTO) 5.08 MIL/uL (4.50-6.20); RED CELL DISTRIBUTION WIDTH 11.8 % (11.0-15.5); WHITE BLOOD COUNT (AUTO) 8.2 K/uL (4.8-10.8)
[2022-04-09 16:29] LABS: CREATININE 0.8 mg/dL (0.5-1.5); POTASSIUM 4.1 mmol/L (3.5-5.1)
[2022-04-09 16:36] LABS: TOTAL PROTEIN, SERUM 7.9 g/dL (6.0-8.3)
[2022-04-09] MEDS ORDERED: DICYCLOMINE HCL 10 MG/5 ML ML PO ONE (17:30)
[2022-04-09] MEDS ORDERED: PANTOPRAZOLE 40 MG/VIAL IV ONE (17:30)
[2022-04-09] MEDS ORDERED: MAG/ALUM/SIMETH 30 ML UDCUP PO ONE (17:30)
[2022-04-09] MEDS ORDERED: LIDOCAINE HCL 2% VISCOUS 15 ML UDCUP PO ONE (17:30)
[2022-04-09] MEDS ORDERED: ONDA4TAB10 PO (17:30)
[2022-04-09] MEDS ORDERED: ESOM40CA PO (17:30)
[2022-04-09 18:40] VITALS: BP 116/62
== END 2022-04-09 18:41 | disposition home or self-care (01) ==
LOC: EDH 14:57
DX: K29.00 Acute gastritis without bleeding (principal); E66.9 Obesity, unspecified; E11.9 Type 2 diabetes mellitus without complications; E78.00 Pure hypercholesterolemia, unspecified; Z20.822 Contact with and (suspected) exposure to COVID-19; Z95.1 Presence of aortocoronary bypass graft; Z91.040 Latex allergy status; Z79.899 Other long term (current) drug therapy
CPT/HCPCS: 99285; 84484; 80053; 83880; 85025; 87804 ×2; 36415; 87635; 71045; 96374; 96361; 96375; 93005; C9803; J7030; J2405; C9113

== ENCOUNTER 2023-03-18 12:41 | Observation (INO) | payer OTHER ==
[~2023-03-18] VITALS: Ht 167.6 cm; Wt 87.7 kg
[~2023-03-18 12:41] MED LIST changes: +ESOM40CA PO; +ONDA4TAB10 PO
[2023-03-18 13:33] LABS: BASOPHILS # (AUTO) 0.02 K/uL (0.00-0.20); BASOPHILS % (AUTO) 0.3 % (0.0-5.0); EOSINOPHILS # (AUTO) 0.04 K/uL (0.00-0.70); EOSINOPHILS % (AUTO) 0.5 % (0.0-8.0); HEMATOCRIT 44.1 % (42-54); IMMATURE GRANULOCYTE ABSOLUTE 0.02 K/uL (0-1); LYMPHOCYTES % (AUTO) 26.5 % (21.0-51.0); MEAN CORPUSCULAR HEMOGLOBIN 31.5 pg (27.0-33.0); MEAN CORPUSCULAR HGB CONC 33.3 g/dL (32.0-36.0); MEAN CORPUSCULAR VOLUME 94.4 fL (79-99); MONOCYTES # (AUTO) 0.5 K/uL (0.1-1.0); MONOCYTES % (AUTO) 6.9 % (3.0-13.0); NEUTROPHILS # (AUTO) 4.9 K/uL (1.8-7.7); NEUTROPHILS % (AUTO) 65.5 % (40.0-77.0); PLATELET COUNT (AUTO) 164 K/uL (130-400); RED BLOOD CELL COUNT(AUTO) 4.67 MIL/uL (4.50-6.20); RED CELL DISTRIBUTION WIDTH 12.9 % (11.0-15.5); WHITE BLOOD COUNT (AUTO) 7.4 K/uL (4.8-10.8)
[2023-03-18 13:56] LABS: CREATININE 0.7 mg/dL (0.5-1.5)
[2023-03-18 14:00] LABS: ALBUMIN 3.8 g/dL (3.5-5.0); BILIRUBIN,TOTAL 0.8 mg/dL (0.2-1.0); TOTAL PROTEIN, SERUM 7.4 g/dL (6.0-8.3)
[2023-03-18] MEDS ORDERED: CEFTRIAXONE 2GM VIAL IVPB ONE (14:00)
[2023-03-18] MEDS ORDERED: ONDANSETRON 4MG INJ IVP ONE (14:00)
[2023-03-18] MEDS ORDERED: PANTOPRAZOLE 40 MG/VIAL IVP ONE (14:00)
[2023-03-18 15:33] LABS: APPEARANCE,URINE CLEAR (CLEAR); BILIRUBIN,URINE NEGATIVE (NEGATIVE); COLOR,URINE LIGHT-YELLOW (YELLOW); GLUCOSE, URINE (UA) >=1000 mg/dL (NEGATIVE); KETONES,URINE 40 mg/dL (NEGATIVE); LEUKOCYTE ESTERASE ,URINE NEGATIVE Leu/uL (NEGATIVE); NITRATE,URINE NEGATIVE (NEGATIVE); OCCULT BLOOD,URINE NEGATIVE (NEGATIVE); PROTEIN,URINE NEGATIVE (NEGATIVE); UROBILINOGEN,URINE 0.2 mg/dL (0.2-1.0)
[2023-03-18 15:35] LABS: ADD UA MICROSCOPIC YES
[2023-03-18 15:52] LABS: MUCUS,URINE RARE LPF (None Seen); RBC,URINE 0-1 /HPF (0-1); SQUAMOUS EPITHELIAL CELL,UR RARE /HPF (0-2); WBC,URINE 0-1 /HPF (0-1)
[2023-03-18 17:07] LABS: BASOPHILS # (AUTO) 0.03 K/uL (0.00-0.20); BASOPHILS % (AUTO) 0.4 % (0.0-5.0); EOSINOPHILS # (AUTO) 0.02 K/uL (0.00-0.70); EOSINOPHILS % (AUTO) 0.2 % (0.0-8.0); HEMATOCRIT 42.8 % (42-54); IMMATURE GRANULOCYTE ABSOLUTE 0.05 K/uL (0-1); LYMPHOCYTES # (AUTO) 1.9 K/uL (1.0-4.8); LYMPHOCYTES % (AUTO) 22.7 % (21.0-51.0); MEAN CORPUSCULAR HEMOGLOBIN 31.8 pg (27.0-33.0); MEAN CORPUSCULAR HGB CONC 33.4 g/dL (32.0-36.0); MEAN CORPUSCULAR VOLUME 95.1 fL (79-99); MONOCYTES # (AUTO) 0.4 K/uL (0.1-1.0); NEUTROPHILS # (AUTO) 6.1 K/uL (1.8-7.7); NEUTROPHILS % (AUTO) 71.1 % (40.0-77.0); PLATELET COUNT (AUTO) 155 K/uL (130-400); RED CELL DISTRIBUTION WIDTH 12.8 % (11.0-15.5); WHITE BLOOD COUNT (AUTO) 8.5 K/uL (4.8-10.8)
[2023-03-18] MEDS ORDERED: GLUCAGON 1MG KIT 1 MG ML IM PRN (17:30)
[2023-03-18] MEDS ORDERED: HYDRALAZINE 20MG/ML VIAL IV PRN (17:30)
[2023-03-18] MEDS ORDERED: ALBUTEROL 0.083% 2.5 MG/3 ML INH IH PRN (17:30)
[2023-03-18] MEDS ORDERED: DEXTROSE 50%-WATER 50 ML DISP.SYRIN IV PRN (17:30)
[2023-03-18] MEDS: LACTATED RINGERS 1000ML 1,000 ML IV SCH (18:09)
[2023-03-18] MEDS: PANTOPRAZOLE 40 MG/VIAL IVP SCH (20:11)
[2023-03-18] MEDS: INSULIN HUMULIN R 100 UNIT/ML 3ML SQ SCH (20:12)
[2023-03-18] MEDS ORDERED: MORPHINE 2 MG SYG IVP SCH (20:30)
[2023-03-18] MEDS: ONDANSETRON 4MG INJ IVP PRN (20:54)
[2023-03-18 22:30] VITALS: BP 119/75; PULSE 99; RESP 20; O2SAT 96
[2023-03-18] MEDS ORDERED: CITA-108 PO (22:56)
[2023-03-18] MEDS ORDERED: INSU100V52 SQ (22:56)
[2023-03-19] VITALS (26 sets, daily range): BP systolic 92–137; BP diastolic 50–87; PULSE 68–97; RESP 16–20; O2SAT 95–96
[2023-03-19] MEDS: LACTATED RINGERS 1000ML 1,000 ML IV SCH ×4 (00:52→17:47)
[2023-03-19] MEDS ORDERED: MORPHINE 2 MG SYG IVP ONE (01:00)
[2023-03-19] MEDS: PROCHLORPERAZINE 10MG/2ML INJ IV PRN ×2 (01:08→19:53)
[2023-03-19] MEDS ORDERED: REGULAR INSULIN SQ (04:32)
[2023-03-19] MEDS: INSULIN HUMULIN R 100 UNIT/ML 3ML SQ SCH ×4 (05:59→19:54)
[2023-03-19 06:12] LABS: BASOPHILS # (AUTO) 0.03 K/uL (0.00-0.20); BASOPHILS % (AUTO) 0.4 % (0.0-5.0); EOSINOPHILS # (AUTO) 0.03 K/uL (0.00-0.70); EOSINOPHILS % (AUTO) 0.4 % (0.0-8.0); HEMATOCRIT 38.2 % (42-54); IMMATURE GRANULOCYTE ABSOLUTE 0.02 K/uL (0-1); LYMPHOCYTES # (AUTO) 2.9 K/uL (1.0-4.8); LYMPHOCYTES % (AUTO) 41.2 % (21.0-51.0); MEAN CORPUSCULAR HEMOGLOBIN 31.4 pg (27.0-33.0); MEAN CORPUSCULAR HGB CONC 33.2 g/dL (32.0-36.0); MEAN CORPUSCULAR VOLUME 94.6 fL (79-99); MONOCYTES # (AUTO) 0.6 K/uL (0.1-1.0); NEUTROPHILS # (AUTO) 3.5 K/uL (1.8-7.7); NEUTROPHILS % (AUTO) 49.7 % (40.0-77.0); PLATELET COUNT (AUTO) 153 K/uL (130-400); RED BLOOD CELL COUNT(AUTO) 4.04 MIL/uL (4.50-6.20); RED CELL DISTRIBUTION WIDTH 12.8 % (11.0-15.5); WHITE BLOOD COUNT (AUTO) 7.1 K/uL (4.8-10.8)
[2023-03-19 06:23] LABS: CREATININE 0.6 mg/dL (0.5-1.5); POTASSIUM 3.6 mmol/L (3.5-5.1)
[2023-03-19 06:24] LABS: INR 0.94 (0.85-1.15); PROTHROMBIN TIME 10.9 SEC (9.6-11.6)
[2023-03-19 06:25] LABS: PARTIAL THROMBOPLASTIN TIME 24.4 SEC (26.3-35.5)
[2023-03-19 06:29] LABS: HEMOGLOBIN A1C 11.9 % (4.0-6.0)
[2023-03-19] MEDS: PANTOPRAZOLE 40 MG/VIAL IVP SCH ×2 (08:33→19:53)
[2023-03-19] MEDS ORDERED: LIDOCAINE PF 100MG/5ML (2%) SYRINGE 5ML ONE (09:47)
[2023-03-19] MEDS ORDERED: PROPOFOL 10 MG/ML 20ML VIAL IV ONE (09:47)
[2023-03-19] MEDS ORDERED: ONDANSETRON 4MG INJ ONE (09:52)
[2023-03-19 13:48] LABS: HEMATOCRIT 40.1 % (42-54)
[2023-03-19 16:14] LABS: HEMATOCRIT 38.8 % (42-54)
[2023-03-19] MEDS: ONDANSETRON 4MG INJ IVP PRN (17:46)
[2023-03-20] VITALS: BP 113/59; PULSE 82; RESP 18
[2023-03-20] MEDS: LACTATED RINGERS 1000ML 1,000 ML IV SCH ×3 (01:30→11:14)
[2023-03-20 04:00] VITALS: BP 110/45; PULSE 74; RESP 18
[2023-03-20 04:35] LABS: HEMATOCRIT 37.3 % (42-54); MEAN CORPUSCULAR HEMOGLOBIN 32.4 pg (27.0-33.0); MEAN CORPUSCULAR HGB CONC 33.5 g/dL (32.0-36.0); MEAN CORPUSCULAR VOLUME 96.6 fL (79-99); RED BLOOD CELL COUNT(AUTO) 3.86 MIL/uL (4.50-6.20); RED CELL DISTRIBUTION WIDTH 12.7 % (11.0-15.5); WHITE BLOOD COUNT (AUTO) 8.5 K/uL (4.8-10.8)
[2023-03-20 04:51] LABS: CREATININE 0.7 mg/dL (0.5-1.5); POTASSIUM 3.4 mmol/L (3.5-5.1)
[2023-03-20] MEDS: INSULIN HUMULIN R 100 UNIT/ML 3ML SQ SCH ×2 (05:55→11:18)
[2023-03-20 08:00] VITALS: BP 107/59; PULSE 85; RESP 18; O2SAT 95
[2023-03-20] MEDS: PANTOPRAZOLE 40 MG/VIAL IVP SCH (09:00)
[2023-03-20 11:36] VITALS: BP 120/61; PULSE 82; RESP 17
== END 2023-03-20 14:35 | disposition home or self-care (01) ==
LOC: EDH 12:41 → EDHIP 17:10 → 3CH 20:25
PROVIDERS: ADMIT Internal Medicine Pulmonary Disease; ATTEND Internal Medicine Pulmonary Disease
DX: K29.00 Acute gastritis without bleeding (principal); K29.50 Unspecified chronic gastritis without bleeding; K21.00 Gastro-esophageal reflux disease with esophagitis, without bleeding; K22.10 Ulcer of esophagus without bleeding; K31.7 Polyp of stomach and duodenum; E11.65 Type 2 diabetes mellitus with hyperglycemia; K92.0 Hematemesis; E78.5 Hyperlipidemia, unspecified; I10 Essential (primary) hypertension; E66.9 Obesity, unspecified; I25.10 Atherosclerotic heart disease of native coronary artery without angina pectoris; D62 Acute posthemorrhagic anemia; Z95.1 Presence of aortocoronary bypass graft; Z91.041 Radiographic dye allergy status; Z79.4 Long term (current) use of insulin; Z68.31 Body mass index [BMI] 31.0-31.9, adult
CPT/HCPCS: 96374; 96376 ×3; 96361 ×3; 96375; 99285; 80053; 83690; 85025 ×3; 85014 ×3; 85018 ×3; 86850; 86900; 86901; 82948 ×7; 81001; 36415 ×3; 74176; 93005; 83036; 83735; 84100; 80048 ×2; 85610; 85730; 88305; 88312; 43239; 85027; G0378 ×41; J2270 ×2; J0696; J2405 ×4; C9113 ×5; J1815 ×4; J2001; J0780 ×2; J2704; A4215; A4223; A4657 ×3; A7002; A4222; A4216; J7030; A4606; J3490

== ENCOUNTER 2023-06-01 06:00 | Day surgery (SDC) | payer OTHER ==
[~2023-06-01] VITALS: Ht 172.7 cm; Wt 87.1 kg
[2023-06-01] VITALS (10 sets, daily range): BP systolic 99–117; BP diastolic 50–68; PULSE 64–79; RESP 15–16
[~2023-06-01 06:00] MED LIST changes: +CITA-108 PO; -ESOM40CA PO; -FISH1CAP20 PO; -HUMLIS7525 SQ; -ONDA4TAB10 PO; +REGULAR INSULIN SQ
[2023-06-01] MEDS: 0.9%NACL 1000ML 1,000 ML IV ONE (06:50)
[2023-06-01] MEDS ORDERED: PROPOFOL 10 MG/ML 20ML VIAL IV ONE (07:58)
== END 2023-06-01 09:15 | disposition home or self-care (01) ==
LOC: DAH 06:00 → ENDO 06:00
PROVIDERS: ATTEND Internal Medicine Gastroenterology
DX: K21.00 Gastro-esophageal reflux disease with esophagitis, without bleeding (principal); D62 Acute posthemorrhagic anemia; K44.9 Diaphragmatic hernia without obstruction or gangrene; K31.7 Polyp of stomach and duodenum; K29.50 Unspecified chronic gastritis without bleeding; R12 Heartburn; K64.1 Second degree hemorrhoids; K57.30 Diverticulosis of large intestine without perforation or abscess without bleeding; I10 Essential (primary) hypertension; I25.10 Atherosclerotic heart disease of native coronary artery without angina pectoris; E11.9 Type 2 diabetes mellitus without complications; E78.5 Hyperlipidemia, unspecified; Z86.010 Personal history of colon polyps; Z98.890 Other specified postprocedural states; Z87.891 Personal history of nicotine dependence; Z72.89 Other problems related to lifestyle; Z80.0 Family history of malignant neoplasm of digestive organs
CPT/HCPCS: 82948 ×2; 43239; J7030 ×2; J2704; A4620; A4215 ×2; A4223; A7002; A4222; A4221; A4663; A4606; J3490

== ENCOUNTER → 2023-06-22 | Outpatient (CLI) | payer OTHER | END | disposition home or self-care (01) | LOC: RAH 15:09 | PROVIDERS: ATTEND Internal Medicine | DX: I65.23 Occlusion and stenosis of bilateral carotid arteries (principal); R53.1 Weakness | CPT/HCPCS: 93880 ==

== ENCOUNTER → 2023-07-04 | Outpatient (CLI) | payer OTHER | END | disposition home or self-care (01) | LOC: RAH 14:04 | PROVIDERS: ATTEND Internal Medicine | DX: I70.203 Unspecified atherosclerosis of native arteries of extremities, bilateral legs (principal); E78.2 Mixed hyperlipidemia; I65.29 Occlusion and stenosis of unspecified carotid artery; E11.51 Type 2 diabetes mellitus with diabetic peripheral angiopathy without gangrene; R68.89 Other general symptoms and signs | CPT/HCPCS: 93925 ==

== ENCOUNTER 2023-11-02 00:01 | Emergency (ER) | payer OTHER ==
[~2023-11-02] VITALS: Ht 167.6 cm; Wt 81.6 kg
[~2023-11-02 00:01] MED LIST changes: +INSU300I SQ; +PANT40TA PO; +TRAZ-185 PO
[2023-11-02 00:40] LABS: BASOPHILS # (AUTO) 0.07 K/uL (0.00-0.20); BASOPHILS % (AUTO) 0.7 % (0.0-5.0); EOSINOPHILS # (AUTO) 0.09 K/uL (0.00-0.70); EOSINOPHILS % (AUTO) 0.9 % (0.0-8.0); IMMATURE GRANULOCYTE ABSOLUTE 0.04 K/uL (0-1); LYMPHOCYTES # (AUTO) 3.4 K/uL (1.0-4.8); LYMPHOCYTES % (AUTO) 34.8 % (21.0-51.0); MEAN CORPUSCULAR HEMOGLOBIN 31.7 pg (27.0-33.0); MEAN CORPUSCULAR HGB CONC 34.2 g/dL (32.0-36.0); MEAN CORPUSCULAR VOLUME 92.8 fL (79-99); MONOCYTES # (AUTO) 0.7 K/uL (0.1-1.0); MONOCYTES % (AUTO) 6.6 % (3.0-13.0); NEUTROPHILS # (AUTO) 5.6 K/uL (1.8-7.7); NEUTROPHILS % (AUTO) 56.6 % (40.0-77.0); PLATELET COUNT (AUTO) 313 K/uL (130-400); RED BLOOD CELL COUNT(AUTO) 3.88 MIL/uL (4.50-6.20); RED CELL DISTRIBUTION WIDTH 12.2 % (11.0-15.5); WHITE BLOOD COUNT (AUTO) 9.9 K/uL (4.8-10.8)
[2023-11-02 00:41] VITALS: O2SAT 99
[2023-11-02 00:50] LABS: CREATININE 0.7 mg/dL (0.5-1.3); POTASSIUM 3.9 mmol/L (3.5-5.1)
[2023-11-02 03:14] VITALS: BP 132/56; PULSE 78; RESP 18
== END 2023-11-02 03:50 | disposition home or self-care (01) ==
LOC: EDH 00:01
DX: Z48.817 Encounter for surgical aftercare following surgery on the skin and subcutaneous tissue (principal); E11.9 Type 2 diabetes mellitus without complications; Z79.899 Other long term (current) drug therapy; Z91.041 Radiographic dye allergy status; Z98.890 Other specified postprocedural states
CPT/HCPCS: 36415; 73630; 80048; 85025

== ENCOUNTER 2023-11-12 00:24 | Emergency (ER) | payer OTHER ==
[~2023-11-12] VITALS: Ht 167.6 cm; Wt 82.6 kg
[2023-11-12 00:51] LABS: BASOPHILS # (AUTO) 0.04 K/uL (0.00-0.20); BASOPHILS % (AUTO) 0.5 % (0.0-5.0); EOSINOPHILS # (AUTO) 0.12 K/uL (0.00-0.70); EOSINOPHILS % (AUTO) 1.4 % (0.0-8.0); HEMATOCRIT 34.6 % (42-54); IMMATURE GRANULOCYTE ABSOLUTE 0.02 K/uL (0-1); LYMPHOCYTES # (AUTO) 3.3 K/uL (1.0-4.8); LYMPHOCYTES % (AUTO) 37.1 % (21.0-51.0); MEAN CORPUSCULAR HEMOGLOBIN 30.7 pg (27.0-33.0); MEAN CORPUSCULAR HGB CONC 32.9 g/dL (32.0-36.0); MEAN CORPUSCULAR VOLUME 93.3 fL (79-99); MONOCYTES # (AUTO) 0.9 K/uL (0.1-1.0); MONOCYTES % (AUTO) 9.6 % (3.0-13.0); NEUTROPHILS # (AUTO) 4.5 K/uL (1.8-7.7); NEUTROPHILS % (AUTO) 51.2 % (40.0-77.0); PLATELET COUNT (AUTO) 209 K/uL (130-400); RED BLOOD CELL COUNT(AUTO) 3.71 MIL/uL (4.50-6.20); RED CELL DISTRIBUTION WIDTH 12.2 % (11.0-15.5); WHITE BLOOD COUNT (AUTO) 8.8 K/uL (4.8-10.8)
[2023-11-12 01:04] LABS: CREATININE 0.8 mg/dL (0.5-1.3); POTASSIUM 3.7 mmol/L (3.5-5.1)
[2023-11-12 01:09] LABS: ALBUMIN 2.8 g/dL (3.5-5.0); BILIRUBIN,TOTAL 0.3 mg/dL (0.2-1.0); TOTAL PROTEIN, SERUM 7.1 g/dL (6.0-8.3)
[2023-11-12 01:47] LABS: COVID19 (SARS ANTIGEN RAPID) PRESUMPTIVE NEGATIVE (NEGATIVE); INFLUENZA TYPE A Negative For Type A (NEGATIVE); INFLUENZA TYPE B Negative For Type B (NEGATIVE)
[2023-11-12] MEDS: ONDANSETRON 4MG INJ IVP STA (01:57)
[2023-11-12 03:25] LABS: ABG BASE EXCESS -2.5 mmol/L (-2.0-3.0); ABG HCO3 20.5 mmol/L (21.0-28.0); ABG OXYGEN SATURATION 96.5 % (94.0-98.0); ABG PCO2 31 mmHg (35-48); ABG PH 7.441 (7.350-7.450); PO2, ARTERIAL BG 81.1 mmHg (83.0-108.0); VENT MODE, BG RA (ROOM AIR)
[2023-11-12] MEDS: 0.9%NACL 1000ML 1,000 ML IV ONE (03:33)
[2023-11-12 03:35] LABS: APPEARANCE,URINE CLEAR (CLEAR); BILIRUBIN,URINE NEGATIVE (NEGATIVE); COLOR,URINE COLORLESS (YELLOW); GLUCOSE, URINE (UA) >=1000 mg/dL (NEGATIVE); KETONES,URINE NEGATIVE (NEGATIVE); LEUKOCYTE ESTERASE ,URINE NEGATIVE Leu/uL (NEGATIVE); NITRATE,URINE NEGATIVE (NEGATIVE); OCCULT BLOOD,URINE NEGATIVE (NEGATIVE); PH,URINE 5.5 (5.0-8.0); PROTEIN,URINE NEGATIVE (NEGATIVE); RBC,URINE 0-1 /HPF (0-1); UROBILINOGEN,URINE 0.2 mg/dL (0.2-1.0); WBC,URINE 0-1 /HPF (0-1)
[2023-11-12 04:38] VITALS: BP 132/79; PULSE 83; RESP 18; TEMP 98; O2SAT 99
== END 2023-11-12 04:40 | disposition home or self-care (01) ==
LOC: EDH 00:24
DX: B34.9 Viral infection, unspecified (principal); Z48.00 Encounter for change or removal of nonsurgical wound dressing; E11.9 Type 2 diabetes mellitus without complications; Z20.822 Contact with and (suspected) exposure to COVID-19; Z79.899 Other long term (current) drug therapy; Z91.041 Radiographic dye allergy status; Z95.1 Presence of aortocoronary bypass graft; Z98.890 Other specified postprocedural states
CPT/HCPCS: 99283; 96374; 96361; 87426; 80053; 82803; 85025; 87040; 87804 ×2; 83605 ×2; 81001; 36415; 36600; J7030; J2405

== ENCOUNTER → 2024-02-13 | Outpatient (CLI) | payer OTHER ==
[~2024-02-13] MED LIST changes: +GADOTERATE MEGLUMINE 10 MMOL/20 ML VIAL IV ONE; -PANT40TA PO; -TRAZ-185 PO
--- NOTE | 2024-02-13 15:29 | HMCIMG ---
MR FOOT RIGHT WWO HISTORY: Cellulitis COMPARISON: 11/25/2023 TECHNIQUE: MRI of the right foot was performed utilizing multiple pulse sequences in axial, coronal and sagittal planes. Patient was given 20 cc of Clariscan through intravenous route. FINDINGS: Abnormal linear areas are noted involving the second proximal phalanx also seen on previous study may be related to nondisplaced fractures. Increased signal intensities are again seen involving the second proximal phalanx, third toe, fourth toe and possibly fifth toe suggestive of osteomyelitis. Findings were also seen on previous study. There may be minimal improvement. Extensive cellulitis changes are also seen. IMPRESSION: 1. Findings as described above.
== END | disposition home or self-care (01) ==
LOC: RAH 02-01 13:44
PROVIDERS: ATTEND Internal Medicine
DX: L03.115 Cellulitis of right lower limb (principal)
CPT/HCPCS: 73720; A9575

== ENCOUNTER → 2024-03-02 | Outpatient (CLI) | payer OTHER ==
[~2024-03-02] MED LIST changes: -GADOTERATE MEGLUMINE 10 MMOL/20 ML VIAL IV ONE
--- NOTE | 2024-03-02 15:35 | HMCIMG ---
US VENOUS DOPPLER BILATERAL REASON: PAIN COMPARISON: None TECHNIQUE: Color-flow venous Doppler both lower extremities with grayscale imaging and augmentation maneuvers. US VENOUS DOPPLER BILATERAL HISTORY: PAIN. TECHNIQUE: Bilateral lower extremity venous Doppler ultrasound was performed. FINDINGS: Common femoral, deep femoral, femoral and popliteal, peroneal and posterior tibial veins are widely patent and easily compressible. There is normal response to augmentation. IMPRESSION: Negative for deep venous thrombosis.
--- NOTE | 2024-03-02 23:17 | HMCIMG ---
US ARTERIAL BILAT LOW EXT DUPL HISTORY: No additional history given. COMPARISON: None TECHNIQUE: Bilateral lower extremity arterial Doppler ultrasound study was performed. FINDINGS: Abnormal monophasic arterial waveforms are noted in the bilateral posterior tibial, left anterior tibial and left dorsalis pedal arteries with hyperemic flow. Normal triphasic and biphasic arterial waveforms are noted in the common femoral, deep femoral, superficial femoral, popliteal, posterior tibial and right anterior tibial and dorsalis pedal arteries. On the right, the peak systolic velocity of the common femoral artery is 115 cm/s, the proximal femoral artery is 110 cm/s, the mid femoral artery is 94 cm/s, the distal femoral artery is 78 cm/s, the proximal popliteal artery is 117 cm/s, the distal popliteal artery is 94 cm/s, the anterior tibial artery is 80 cm/s, the posterior tibial artery artery is 134 cm/s,and the dorsalis pedal artery is 101 cm/s. On the left, the peak systolic velocity of the common femoral artery is 92 cm/s, the proximal femoral artery is 106 cm/s, the mid femoral artery is 90 cm/s, the distal femoral artery is 87 cm/s, the proximal popliteal artery is 75 cm/s, the distal popliteal artery is 59 cm/s, the anterior tibial artery is 131 cm/s, the posterior tibial artery artery is 133 cm/s,and the dorsalis pedal artery is 90 cm/s. IMPRESSION: 1. Atherosclerotic disease. 2. Abnormal monophasic arterial waveforms are noted in the bilateral posterior tibial, left anterior tibial and left dorsalis pedal arteries with hyperemic flow.
--- NOTE | 2024-03-02 23:23 | HMCIMG ---
US SOFT TISSUE GROIN REASON: LUMP IN GROIN. COMPARISON: None TECHNIQUE: Right groin ultrasound study was performed. FINDINGS: There is right inguinal lymph node measuring 2.4 x 0.9 x 2.7 cm. IMPRESSION: Right inguinal lymph node measuring 2.4 x 0.9 x 2.7 cm.
== END | disposition home or self-care (01) ==
LOC: RAH 13:27
PROVIDERS: ATTEND Internal Medicine
DX: I73.9 Peripheral vascular disease, unspecified (principal); R19.09 Other intra-abdominal and pelvic swelling, mass and lump; M79.605 Pain in left leg; M79.604 Pain in right leg
CPT/HCPCS: 76882; 93925; 93970

== ENCOUNTER 2024-03-14 19:04 | Inpatient (IN) | payer OTHER ==
[~2024-03-14] VITALS: Ht 172.7 cm; Wt 86.2 kg
[2024-03-14 20:24] LABS: CREATININE 0.9 mg/dL (0.5-1.3); POTASSIUM 3.9 mmol/L (3.5-5.1)
--- NOTE | 2024-03-14 20:49 | HMCIMG ---
FOOT COMP 3+VWS RT CLINICAL HISTORY: Foot pain. COMPARISON: 11/02/2023 TECHNIQUE: AP lateral and oblique images were obtained. FINDINGS: There is bony remodeling of the third proximal phalanx along with bony erosion. The overlying soft tissue appears edematous. Remaining bony structures appear intact. IMPRESSION: Findings concerning for chronic osteomyelitis of the third proximal phalanx.
--- NOTE | 2024-03-14 21:12 | ERN ---
General Chief Complaint: Wound Check Stated Complaint: RIGHT FOOT LACERATION Time Seen by MD: 19:08 Source: patient History of Present Illness Initial Comments Patient is a 54-year-old gentleman coming in to be evaluated for right foot pain and drainage. Patient states that he was diagnosed with osteomyelitis of the foot and received several courses of antibiotics. He states that Dr. Aguilar in his physiatrist in his has been evaluated patient. Per patient he was advised by Dr. Aguilar to come in for IV antibiotics. Allergies: Coded Allergies: Iodinated Contrast Media (Unverified Allergy, Mild, ITCHING, 03/21/19) rash Home Meds Reported Medications Insulin Glargine,Hum.rec.anlog (Toujeo Solostar) 300 Unit/Ml (1.5 Ml) Insuln.pen, 60 UNIT SQ AM, SYRINGE 10/22/23 Simvastatin (Simvastatin) 80 Mg Tablet, 80 MG PO AM, TAB 10/22/23 [Regular Insulin] No Conflict Check, 30 UNITS SQ DAILYBKFST 03/19/23 Citalopram Hydrobromide (Citalopram HBr) 40 Mg Tablet, 1 TAB PO DAILY 03/18/23 Clopidogrel Bisulfate (Plavix) 75 Mg Tablet, 75 MG PO AM, TAB 03/19/19 Past Medical History Past Medical History: Diabetes-Type II, High Cholesterol Medical History Other: PVD/PAD, CELLULITIS Past Surgical History: None Surgical History Other: L LEG STENTS, L ARM SURGERY Family History Family History: Negative Social History Social History: Lives with family ROS Dictation CONSTITUTIONAL: No chills, no fever, no weakness, no diaphoresis, no malaise. HEAD/FACE: No signs of trauma. EENT: No eye pain, no blurred vision, no tearing, no double vision, no ear pain, no ear discharge, no nose pain, no nasal congestion, no throat pain, no throat swelling, no mouth pain. RESPIRATORY: No cough, no orthopnea, no SOB, no stridor, no wheezing. CARDIOVASCULAR: No chest pain, no edema, no palpitations, no syncope. GASTROINTESTINAL/ABDOMINAL: No abdominal pain, no constipation, no diarrhea, no nausea, no vomiting. GENITOURINARY: No abnormal discharge, no dysuria, no frequent urination, no hematuria. No complaints of pain in the genitals. MUSCULOSKELETAL: No back pain, no gout, no joint pain, no joint swelling, no muscle pain, no muscle stiffness, no neck pain. INTEGUMENTARY: No change in color, no change in hair/nails, no dryness, no lesion, no lumps, no rash. NEUROLOGICAL/PSYCH: No anxiety, not depressed, no emotional problem, no headache, no numbness, no pre-existing deficit, no history of seizures, no tremors, no weakness. HEMATOLOGIC/LYMPHATIC: Not anemic, no history of blood clots, no apparent bleeding, no bruising, glands not swollen. All Systems Negative, Except as Noted. Physical Exam Physical Exam Dictation VITAL SIGNS: Reviewed. GENERAL APPEARANCE: Alert, oriented x3, no acute distress, obese. HEAD AND FACE: Non-traumatic. EYES: PERRL, pink conjunctivas, eyelid no trauma, anterior chamber clear. EARS: Pinnas intact and no signs of trauma or erythema. Ear canals clear and no discharge. TMs no erythema. NOSE: No discharge, no bleeding. OROPHARYNX: Mouth normal, teeth no caries, tongue pink. Pharynx clear, no erythema. Tonsils no exudates, no abscesses noted. Mucous membrane moist. NECK: Supple, non-tender, no thyromegaly, no masses, no JVD, no bruits. BREAST: Deferred. CHEST: No tenderness, no crepitus, no paradoxical movement, no retractions. LUNGS: Clear, well-ventilated, symmetric, no rales, no wheezing, no rhonchi, no stridor, good breath sounds bilaterally. HEART: Regular rate, regular rhythm, no murmur, no gallops. VASCULAR: No peripheral edema. ABDOMEN: Soft, positive bowel sounds, nondistended, no guarding, nontender, no rebound, no masses no hepatomegaly, no splenomegaly, no Alcala's sign, no hernias. RECTAL: Deferred. GENITAL: Deferred. NEUROLOGICAL: Normal speech, gross motor function intact, gross sensory function intact. MUSCULOSKELETAL: Neck nontender, full range of motion, back nontender, full range of motion. EXTREMITIES: Nontender, full range of motion. SKIN: Color pink, dry, no turgor, no rash, no lacerations, right foot base drainage lesion LYMPHATICS: Deferred. Results Laboratory and Microbiology Lab and Micro Result Laboratory Tests Test 03/14/24 19:56 White Blood Count 7.3 K/uL (4.8-10.8) Red Blood Count 4.29 MIL/uL (4.50-6.20) L Hemoglobin 12.9 g/dL (14.0-18.0) L Hematocrit 37.3 % (42-54) L Mean Corpuscular Volume 86.9 fL (79-99) Mean Corpuscular Hemoglobin 30.1 pg (27.0-33.0) Mean Corpuscular Hemoglobin Concent 34.6 g/dL (32.0-36.0) Red Cell Distribution Width 13.2 % (11.0-15.5) Platelet Count 167 K/uL (130-400) Mean Platelet Volume 11.7 fL (7.5-10.5) H Immature Granulocyte % (Auto) 0.3 % (0-1) Neutrophils (%) (Auto) 60.9 % (40.0-77.0) Lymphocytes (%) (Auto) 29.0 % (21.0-51.0) Monocytes (%) (Auto) 8.4 % (3.0-13.0) Eosinophils (%) (Auto) 1.0 % (0.0-8.0) Basophils (%) (Auto) 0.4 % (0.0-5.0) Neutrophils # (Auto) 4.5 K/uL (1.8-7.7) Lymphocytes # (Auto) 2.1 K/uL (1.0-4.8) Monocytes # (Auto) 0.6 K/uL (0.1-1.0) Eosinophils # (Auto) 0.07 K/uL (0.00-0.70) Basophils # (Auto) 0.03 K/uL (0.00-0.20) Absolute Immature Granulocyte (auto 0.02 K/uL (0-1) Nucleated Red Blood Cells 0.0 % (0.0-0.19) Erythrocyte Sedimentation Rate 27 MM/HR (0-20) H Sodium Level 139 mmol/L (136-145) Potassium Level 3.9 mmol/L (3.5-5.1) Chloride Level 103 mmol/L (101-111) Carbon Dioxide Level 27 mmol/L (21-32) Blood Urea Nitrogen 13 mg/dL (7-18) Creatinine 0.9 mg/dL (0.5-1.3) Glomerular Filtration Rate Calc 100 mL/min (>90) Random Glucose 374 mg/dL (70-105) H Lactic Acid Level 2.0 mmol/L (0.8-2.5) Total Calcium 8.7 mg/dL (8.5-10.1) Total Creatine Kinase 134 U/L (21-232) # Troponin I High Sensitivity 7 ng/L (4-75) Labs Reviewed?: Yes EKG/XRAY/US/CT/MRI X-RAY Comment [facility] [address] [place] [address] IMAGING REPORT Signed PATIENT: JOSE LUIS JONAS JR MR#: [id number] : 1970 SEX: M AGE: 54 LOCATION: [facility] ORDER 36 STATUS: REG ER REPORT#: [id number] SERVICE 34 REASON: osteo rule out ORDERING PHYSICIAN: ABHINAV MARTE MD PROCEDURE: FT 3VW RT - FOOT COMP 3+VWS RT FOOT COMP 3+VWS RT CLINICAL HISTORY: Foot pain. COMPARISON: 11/02/2023 TECHNIQUE: AP lateral and oblique images were obtained. FINDINGS: There is bony remodeling of the third proximal phalanx along with bony erosion. The overlying soft tissue appears edematous. Remaining bony structures appear intact. IMPRESSION: Findings concerning for chronic osteomyelitis of the third proximal phalanx. DICTATED BY: VIKTORIYA MESSINA DO DATE: 03/14/242044 ELECTRONICALLY SIGNED BY: VIKTORIYA MESSINA DO DATE: 03/14/242048 [facility] MDM: Differential diagnosis: Rationale: Tests considered and ordered secondary to shared decision making include: labs, ECG and radiology Previous outside records reviewed: Old ER visits. Risk of complication and/or morbidity or mortality of patient management: None Medications-Per medication reconciliation Need for hospitalization: Patient does meet criteria for hospitalization. Need for emergency major/minor surgery: No There are no social concerns with this patient. Prescription drug management Prescriptions will include symptomatic care Patient's prior external medical records from other ER visits were reviewed by me as indicated. Prior testing and results from previous visits were reviewed. Prior tests were taken into account with medical decision making and resource utilization, independent historian/historians were used to obtain complete medical history. I independently interpreted the test that were performed, results were reviewed by me and considered findings on radiology if ordered. Medical management and examination interpretation discussions were had by me with other qualified healthcare professionals as indicated for the patient's care. ED Course Orders Procedure Category Date Status Time Cbc With Differential LAB 03/14/24 Complete 19:35 Blood Cult LIOR 03/14/24 Logged 19:35 Urinalysis Profile LAB 03/14/24 Logged 19:35 Culture Urine LIOR 03/14/24 Logged 19:35 Creatine Kinase, Total LAB 03/14/24 Complete 19:35 Troponin I High LAB 03/14/24 Complete Sensitivity 19:35 Lactic Acid LAB 03/14/24 Complete 19:35 Basic Metabolic Panel LAB 03/14/24 Complete 19:35 Foot Comp 3+Vws Rt RAD 03/14/24 Resulted 19:35 Erythrocyte LAB 03/14/24 Complete Sedimentation Rate 19:35 Vancomycin 1g/250ml PHA 03/14/24 Complete Kit (Vancomycin 1g/2 21:30 Vancomycin Protocol PHA 03/14/24 In Process (Vancomycin Protocol 21:30 Zosyn 3.375gm+Ns 50ml PHA 03/14/24 Complete (Zosyn 3.375gm+Ns 21:05 Vancomycin .25 PHA 03/15/24 In Process Gm/250 Ml Bag 09:00 Vancomycin Trough LAB 03/16/24 Verified 20:00 Current Medications Medications (Trade) Dose Ordered Sig/Anthony Route PRN Reason Start Time Stop Time Status Last Admin Dose Admin Piperacillin Sod/ Tazobactam Sod (Zosyn 3.375gm+NS 50ml) 3.375 gm Q8H STAT IVPB 03/14/24 21:05 03/14/24 21:06 DC Vancomycin HCl 250 ml @ 125 mls/hr Q12H IV 03/15/24 09:00 03/25/24 08:59 Vancomycin HCl (Vancomycin Protocol) 1 each AD IV 03/14/24 21:30 03/28/24 21:29 Vancomycin HCl (Vancomycin 1g/ 250ml Kit) 1 gm ONCE ONCE IV 03/14/24 21:30 03/14/24 21:31 DC Vital Signs Date Time Temp Pulse Resp B/P (MAP) Pulse Ox O2 Delivery O2 Flow Rate FiO2 03/14/24 20:25 94 18 147/71 94 Room Air* 0 21 03/14/24 19:33 98.4 89 20 144/81 96 Room Air DX & DISP Disposition: Inpatient Decision to Admit Time: 21:11 Departure Impression: Primary Impression: Osteomyelitis of right foot Condition: Stable Referrals: AMANDA GUY MD (PCP) ABHINAV MARTE MD Mar 14, 2024 21:12
[2024-03-14 21:27] LABS: ERYTHROCYTE SEDIMENTATION RATE 27 MM/HR (0-20)
[2024-03-14 21:30] LABS: BASOPHILS # (AUTO) 0.03 K/uL (0.00-0.20); BASOPHILS % (AUTO) 0.4 % (0.0-5.0); EOSINOPHILS # (AUTO) 0.07 K/uL (0.00-0.70); HEMATOCRIT 37.3 % (42-54); IMMATURE GRANULOCYTE ABSOLUTE 0.02 K/uL (0-1); LYMPHOCYTES # (AUTO) 2.1 K/uL (1.0-4.8); MEAN CORPUSCULAR HEMOGLOBIN 30.1 pg (27.0-33.0); MEAN CORPUSCULAR HGB CONC 34.6 g/dL (32.0-36.0); MEAN CORPUSCULAR VOLUME 86.9 fL (79-99); MONOCYTES # (AUTO) 0.6 K/uL (0.1-1.0); MONOCYTES % (AUTO) 8.4 % (3.0-13.0); NEUTROPHILS # (AUTO) 4.5 K/uL (1.8-7.7); NEUTROPHILS % (AUTO) 60.9 % (40.0-77.0); PLATELET COUNT (AUTO) 167 K/uL (130-400); RED BLOOD CELL COUNT(AUTO) 4.29 MIL/uL (4.50-6.20); RED CELL DISTRIBUTION WIDTH 13.2 % (11.0-15.5); WHITE BLOOD COUNT (AUTO) 7.3 K/uL (4.8-10.8)
[2024-03-14] MEDS: VANCOMYCIN KIT 1 GM/250 ML IV.KIT IV ONE (21:30)
[2024-03-14] MEDS ORDERED: VANCOMYCIN PROTOCOL PER PHARMACY IV SCH ×2 (21:30→22:00)
--- NOTE | 2024-03-14 21:43 | HP ---
[facility] HISTORY & PHYSICAL Date Patient Seen: Mar 15, 2024 Time of Visit: 0100 Supervising Physician: [Dr. Ru Reyes ] Primary Care Physician: [Dr. Farmer] Outpatient Specialists: Dr. Aguilar-podiatry ] Inpatient Consults: [Dr. 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 Hx of successful shockwave lithotripsy and drug coated balloon angioplasty to left posterior tibial artery (10/26/2023) High-grade stenosis at the origin of the left tibioperoneal trunk and mid portion of the right posterior tibial artery with flow discontinuity per aorta w/run-off CTA report (11/19/2023) PLAN: -Admit to medsurg unit -Start on IV Linezolid and Cefepime for osteomyelitis coverage, deescalate as wa rranted -Obtain wound CX -Obtain arterial US on BLE -Most recent right foot MRI on 02/13/24 showed: FINDINGS: Abnormal linear areas are noted involving the second proximal phalanx also seen on previous study may be related to nondisplaced fractures. Increased signal intensities are again seen involving the second proximal phalanx, third toe, fourth toe and possibly fifth toe suggestive of osteomyelitis. Findings were also seen on previous study. There may be minimal improvement. Extensive cellulitis changes are also seen. -Will defer to vegetables cook, Dr. Aguilar if further imaging studies were warranted since MRI was just done last month -Multimodal pain management -Neurovascular checks q4H and PRN HPI: [Patient is a 54-year-old male with PMH significant for CAD status post CABG x2, ASHLEY 1, DM, HLD and PVD who was presented to the ED concerning suspected infection on the right foot osteomyelitis site after he stepped on a Piffard thorn 4 months ago. Patient claims that he was told by his vegetables cook to come back to the hospital if he noticed some changes on his wound such as discharges and foul smell. He claims, that yesterday, he started to notice some changes in smell on his wound. He was suspecting that it was beginning to get infected again. He just completed a long-term IV antibiotic through the PICC line 3 weeks ago. Today, he got worried because of the particular bad smell emanating from the wound with yellowish discharges. He denies fever, chills, nausea, vomiting, paresthesia or worsening pain on the affected leg or foot. At the ED, his preliminary lab works were unremarkable except for elevated blood sugar of 374. Patient is not meeting sepsis criteria. Right foot x-ray revealed chronic osteomyelitis of the third proximal phalanx. Patient claims that he just completed MRI studies about 4-5 weeks ago, he was not able to bring a copy of the result but he completed it here in [facility]. The patient was started on IV linezolid and Zosyn at the ED. Physical assessment was unrevealing except for mild cellulitis of the right foot with draining yellowish discharges from the right plantar foot. Goals of care were discussed with the patient verbalizing understanding and agreement. PAST MEDICAL HX: see above PAST SURGICAL HX: noncontributory SOCIAL HISTORY: No tobacco, ETOH, or illicit drug use Coded Allergies: Iodinated Contrast Media (Unverified Allergy, Mild, ITCHING, 03/21/19) rash REVIEW OF SYSTEMS: 12 point ROS reviewed with patient. Pertinent positives mentioned above. Otherwise negative. PHYSICAL EXAM: GENERAL: alert, awake oriented x 3 HEENT: EOMI, Sclera non icteric, moist mucosa NECK: Supple, no JVD, trachea midline LUNGS: Clear breath sounds bilaterally. No wheezes HEART: Regular rate and rhythm. Normal S1 and S2, without murmurs ABD: Abdomen soft, nontender. Bowel sounds present EXT: No clubbing or cyanosis, Mild edema of the right foot; right plantar foot with chronic wound draining yellowish discharge with foul-smell. Negative for neurovascular compromise, warm to touch, palpable pulses, capillary refill <3 secs NEURO: Alert and oriented to person, follows commands Vital Signs (last 8hr) Date Time Temp Pulse Resp B/P (MAP) Pulse Ox O2 Delivery O2 Flow Rate FiO2 03/14/24 20:25 94 18 147/71 94 Room Air* 0 21 03/14/24 19:33 98.4 89 20 144/81 96 Room Air LABS: Hematology Labs: Test 03/14/24 19:56 Range/Units White Blood Count 7.3 4.8-10.8 K/uL Red Blood Count 4.29 L 4.50-6.20 MIL/uL Hemoglobin 12.9 L 14.0-18.0 g/dL Hematocrit 37.3 L 42-54 % Mean Corpuscular Volume 86.9 79-99 fL Mean Corpuscular Hemoglobin 30.1 27.0-33.0 pg Mean Corpuscular Hemoglobin Concent 34.6 32.0-36.0 g/dL Red Cell Distribution Width 13.2 11.0-15.5 % Platelet Count 167 130-400 K/uL Mean Platelet Volume 11.7 H 7.5-10.5 fL Immature Granulocyte % (Auto) 0.3 0-1 % Neutrophils (%) (Auto) 60.9 40.0-77.0 % Lymphocytes (%) (Auto) 29.0 21.0-51.0 % Monocytes (%) (Auto) 8.4 3.0-13.0 % Eosinophils (%) (Auto) 1.0 0.0-8.0 % Basophils (%) (Auto) 0.4 0.0-5.0 % Neutrophils # (Auto) 4.5 1.8-7.7 K/uL Lymphocytes # (Auto) 2.1 1.0-4.8 K/uL Monocytes # (Auto) 0.6 0.1-1.0 K/uL Eosinophils # (Auto) 0.07 0.00-0.70 K/uL Basophils # (Auto) 0.03 0.00-0.20 K/uL Absolute Immature Granulocyte (auto 0.02 0-1 K/uL Nucleated Red Blood Cells 0.0 0.0-0.19 % Erythrocyte Sedimentation Rate 27 H 0-20 MM/HR Chemistry Labs: Test 03/14/24 19:56 Range/Units Sodium Level 139 136-145 mmol/L Potassium Level 3.9 3.5-5.1 mmol/L Chloride Level 103 101-111 mmol/L Carbon Dioxide Level 27 21-32 mmol/L Blood Urea Nitrogen 13 7-18 mg/dL Creatinine 0.9 0.5-1.3 mg/dL Glomerular Filtration Rate Calc 100 >90 mL/min Random Glucose 374 H 70-105 mg/dL Lactic Acid Level 2.0 0.8-2.5 mmol/L Total Calcium 8.7 8.5-10.1 mg/dL Total Creatine Kinase 134 # 21-232 U/L Troponin I High Sensitivity 7 4-75 ng/L DIAGNOSTICS / RADIOLOGY RESULTS: [ ] PLAN NEURO: Minimize central acting medications as possible. Maintain fall precautions, adequate lighting during the day PULMONARY: Supplemental 02 as needed. Maintain aspiration precautions at all times CARDIOVASCULAR: Follow hemodynamics. Vital signs per facility protocol GI & NUTRITION: Continue with nutritional support. Continue stool softeners and laxatives as needed. KIDNEYS & ELECTROLYTES: Strict monitoring of intake, output and overall fluid balance. Avoid nephrotoxic medications to the extent possible. Medications to be dosed according to renal function. Monitor electrolytes and replace as needed ENDOCRINE: Maintain blood glucose between 100-180 at all times. Hypoglycemia protocol in place INFECTIOUS DISEASE: Trend temperature, WBC and procalcitonin level Follow cultures, deescalate antibiotics as soon as possible. Panculture if new onset fever ONCOLOGY/HEMATOLOGY/COAGULATION: Monitor for s/s of bleeding Monitor hemoglobin, coagulation studies as needed SKIN: Pressure ulcer prevention per facility protocol Specialty mattress ORTHO/REHAB: Continue PT/OT Prophylaxis: Continue GI and DVT prophylaxis Code Status: Full Resuscitation Disposition: TBD Other: Total patient care time: 35 minutes JEMIMA PARR AGPCNP Mar 14, 2024 21:43
[2024-03-14] MEDS: ZOSYN 3.375GM +NS 50ML IVPB STA (21:48)
[2024-03-14] MEDS ORDERED: acetaMINOPHEN 325 MG TAB PO PRN (22:00)
[2024-03-14] MEDS ORDERED: LACTULOSE 20 GM/30 ML UDCUP PO PRN (22:00)
[2024-03-14] MEDS ORDERED: GLUCAGON 1MG KIT 1 MG ML IM PRN (22:00)
[2024-03-14] MEDS ORDERED: LAbetaLOL 20MG SYG IV PRN (22:00)
[2024-03-14] MEDS ORDERED: ALBUTEROL 0.083% 2.5 MG/3 ML INH IH PRN (22:00)
[2024-03-14] MEDS ORDERED: ondanSETRON 4MG INJ IVP PRN (22:00)
[2024-03-14] MEDS ORDERED: cloNIDine HCL 0.1 MG TABLET PO PRN (22:00)
[2024-03-14] MEDS ORDERED: DEXTROSE 50%-WATER 50 ML DISP.SYRIN IV PRN (22:00)
[2024-03-14] MEDS ORDERED: ceFEPime HCL 1 GM VIAL IVP SCH (22:00)
[2024-03-14 22:25] LABS: INR <= 0.93 (0.85-1.15)
--- NOTE | 2024-03-14 23:37 | NUR ---
PATIENT REFUSED VANCO, STATES HE HAS VANCO RESISTANT BACTERIA. DR MARTE MADE AWARE. STATED HE WOULD CHANGE TO ZYVOX
[2024-03-14] MEDS: LINEZOLID 600 MG/ISO-OSM 300 ML IV STA (23:43)
[2024-03-14] MEDS: morPHINE 2 MG SYG IVP PRN (23:53)
[2024-03-14] MEDS: INSULIN humuLIN R 100 UNIT/ML 3ML SQ SCH (23:55)
[2024-03-15] VITALS (9 sets, daily range): BP systolic 99–141; BP diastolic 49–76; PULSE 73–93; RESP 18–22; TEMP 97.3–98.5; O2SAT 93–96
--- NOTE | 2024-03-15 00:05 | NUR ---
REPORT GIVEN TO KATHI DORAN
--- NOTE | 2024-03-15 00:12 | HMCIMG ---
US ARTERIAL BILAT LOW EXT DUPL HISTORY: Arterial stenosis/occlusion COMPARISON: None TECHNIQUE: Bilateral lower extremity arterial Doppler ultrasound study was performed. FINDINGS: Normal triphasic arterial waveforms are noted in the common femoral, deep femoral, superficial femoral, popliteal, posterior tibial and dorsalis pedal arteries. Hyperemic flow is seen in the right posterior tibial, anterior tibial and dorsalis pedal arteries. High-grade stenosis is seen in the left dorsalis pedal artery. On the right, the peak systolic velocity of the common femoral artery is 119 cm/s, the proximal femoral artery is 90 cm/s, the mid femoral artery is 93 cm/s, the distal femoral artery is 90 cm/s, the proximal popliteal artery is 79 cm/s, the distal popliteal artery is 80 cm/s, the anterior tibial artery is 48 cm/s, the posterior tibial artery artery is 108 cm/s,and the dorsalis pedal artery is 84 cm/s. On the left, the peak systolic velocity of the common femoral artery is 103 cm/s, the proximal femoral artery is 89 cm/s, the mid femoral artery is 88 cm/s, the distal femoral artery is 79 cm/s, the proximal popliteal artery is 73 cm/s, the distal popliteal artery is 55 cm/s, the anterior tibial artery is 63 cm/s, the posterior tibial artery artery is 22 cm/s,and the dorsalis pedal artery is 149 cm/s. IMPRESSION: 1. Atherosclerotic disease. 2. Otherwise normal triphasic arterial waveforms noted of the lower extremity artery system. Hyperemic flow is seen in the right posterior tibial, anterior tibial and dorsalis pedal arteries. High-grade stenosis is seen in the left dorsalis pedal artery.
[2024-03-15] MEDS ORDERED: HYDROcodone/APAP 5/325 1 TAB TABLET PO PRN (02:30)
[2024-03-15] MEDS: ceFEPime HCL 1 GM VIAL IVP SCH (04:02)
[2024-03-15 04:30] LABS: BASOPHILS # (AUTO) 0.03 K/uL (0.00-0.20); BASOPHILS % (AUTO) 0.5 % (0.0-5.0); EOSINOPHILS # (AUTO) 0.09 K/uL (0.00-0.70); EOSINOPHILS % (AUTO) 1.5 % (0.0-8.0); HEMATOCRIT 35.3 % (42-54); IMMATURE GRANULOCYTE ABSOLUTE 0.01 K/uL (0-1); LYMPHOCYTES # (AUTO) 2.8 K/uL (1.0-4.8); LYMPHOCYTES % (AUTO) 46.8 % (21.0-51.0); MEAN CORPUSCULAR HEMOGLOBIN 30.2 pg (27.0-33.0); MEAN CORPUSCULAR VOLUME 88.9 fL (79-99); MONOCYTES # (AUTO) 0.6 K/uL (0.1-1.0); MONOCYTES % (AUTO) 10.8 % (3.0-13.0); NEUTROPHILS # (AUTO) 2.4 K/uL (1.8-7.7); NEUTROPHILS % (AUTO) 40.2 % (40.0-77.0); PLATELET COUNT (AUTO) 159 K/uL (130-400); RED BLOOD CELL COUNT(AUTO) 3.97 MIL/uL (4.50-6.20); WHITE BLOOD COUNT (AUTO) 5.9 K/uL (4.8-10.8)
[2024-03-15 04:41] LABS: INR <= 0.93 (0.85-1.15); PROTHROMBIN TIME 10.2 SEC (9.6-11.6)
[2024-03-15 04:47] LABS: CREATININE 0.7 mg/dL (0.5-1.3); PHOSPHORUS 3.1 mg/dL (2.5-4.9); POTASSIUM 3.4 mmol/L (3.5-5.1)
[2024-03-15 06:48] LABS: HEMOGLOBIN A1C 11.9 % (4.0-6.0)
--- NOTE | 2024-03-15 07:43 | CONS ---
HISTORY OF PRESENT ILLNESS: The patient is a 54-year-old diabetic, Latin-Hungarian male with history of chronic right foot ulcer, subsecond metatarsophalangeal joint area, history of chronic osteomyelitis of the right foot has been followed by Dr. Antonio, now has received multiple courses of oral and IV antibiotics for this condition. He is currently concerned of pain to the right foot x past 2 days. He noticed redness and he is concerned of foul smelling drainage from the right foot ulcer necessitating his coming into the Emergency Room for evaluation. He was found on admission of white count of 5.9, H and H 12 and 35, platelets 159, neutrophils 40.2, potassium 3.4, glucose 265, hemoglobin A1c of 11.9, average blood sugar 295, triglycerides 231. The patient had a right foot x-ray and the results of the right foot x-rays show concern of chronic osteomyelitis of the third proximal phalanx. Upon review of the patient's x-rays, he was found to have findings consistent with a fracture to the base of the third proximal phalanx of that right foot radiographically, calcification of his digital arteries were noted, no gas in the soft tissues, no foreign bodies present. The patient had arterial Doppler studies. The results of the arterial Doppler studies showed normal triphasic waveforms noted to the lower extremity. Hyperemic flow seen in the right posterior tibial, anterior tibial and dorsalis pedis artery, high-grade stenosis seen in the left dorsalis pedis artery. The patient had an MRI of his right foot performed on 02/13/2024, showed abnormal linear areas noted involving the second proximal phalanx, may be related to a nondisplaced fracture, increased signal intensity involving the second proximal phalanx, third toe, fourth toe, possibly fifth toe suggestive of osteomyelitis. Findings were also seen on previous MRI study. I discussed this with the patient. He states he does not want any further MRI evaluation of his right foot. He states, when he was in the Emergency Room, cultures were taken of drainage from the right foot wound. 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 Antonio, Infectious Disease, peripheral vascular disease, status post revascularization procedure on 10/26/2023, history of shockwave lithotripsy. MEDICATIONS: The patient is currently receiving Zyvox and the cefepime. REVIEW OF SYSTEMS: CONSTITUTIONAL: No chills, no fevers, no night sweats, no nausea, vomiting, no diarrhea. HEENT: No problems with his eyes, ears, nose or throat. CARDIOVASCULAR: Has no current chest pain. He is status post revascularization procedure of right lower extremity by the Cardiology Service. GENITOURINARY: He has a BUN and creatinine level 11 and 0.7. PSYCHIATRIC: Concern of anxiety. MUSCULOSKELETAL: Bunions and hammertoe deformities. INTEGUMENT: He has an ulceration subsecond metatarsophalangeal joint on the right, it is measuring 10 x 3 x 5 mm. There is serosanguineous drainage. No evidence of any consolidated abscess nor there is localized cellulitis. PHYSICAL EXAMINATION: Today, his feet are warm. He has palpable pedal pulses. He has absent protective sharp, dull and vibratory sensation to the feet, bilateral ulcer subsecond metatarsophalangeal joint measuring 10 x 3 x 5 mm, expressible serosanguineous drainage. No exposure of bone, tendon, joint or capsule. No evidence of any abscess formation. He has periwound edema, erythema and cellulitis. He has no wounds to the left foot. His pedal and ankle joint range of motion are within normal limits. His reflexes are diminished. His muscle strength is intact. ASSESSMENT: Ulcer with cellulitis to the subsecond metatarsophalangeal joint on the right; history of chronic osteomyelitis to the right foot, cultures are pending, the patient on broad-spectrum antibiotics with Zyvox and cefepime; history of VRE infection; history of uncontrolled diabetes with an A1c of 11.9. PLAN: Nonweightbearing status to the right foot. I packed the wound open with a Betadine dressing. He will remain nonweightbearing status on the right foot. We will wait on the results of the patient's wound cultures. He will be followed by Infectious Disease. For now, we will continue with the IV Zyvox and the IV cefepime, offloading measures to the right foot, local wound care and follow the patient closely while in-house. TID: [id number] RECEIPT: [id number]
[2024-03-15] MEDS: doCUSate SODIUM 100 MG CAP PO SCH (08:54)
[2024-03-15] MEDS: FAMOTIDINE 20MG TAB PO SCH (08:54)
[2024-03-15] MEDS: polyETHYLene GLYCol 3350 17 GM POWD.PACK PO SCH (08:54)
[2024-03-15] MEDS: ASPIRIN 81MG CHEW TAB PO SCH (08:54)
[2024-03-15] MEDS: ENOXAPARIN SODIUM 40 MG/0.4 ML SYRINGE SQ SCH (08:56)
[2024-03-15] MEDS ORDERED: VANCOMYCIN 1.25 GM/250 ML BAG 250 ML IV SCH (09:00)
[2024-03-15] MEDS: LINEZOLID 600 MG/ISO-OSM 300 ML IV SCH (12:08)
--- NOTE | 2024-03-15 13:47 | NUR ---
Discharge Planning: Pt. states he lives with his spouse Jennifer Tabor. Contact number is . PCP is Dr. Emily Farmer and preferred pharmacy is [facility] in [place]. Pt. states she is independent with ADL's. Has a walker at home, but rarely uses it. No home health services. Referred to [facility] for possible provider services. Addendum: 03/15/24 at 1351 by JINA GRANADOS RN CM Amended: Links added.
[2024-03-15] MEDS: ceFEPime HCL 2 GM VIAL IVPB SCH (20:53)
[2024-03-16] VITALS (7 sets, daily range): BP systolic 95–124; BP diastolic 58–84; PULSE 71–81; RESP 18–20; TEMP 97.8–98.7; O2SAT 96–97
--- NOTE | 2024-03-16 00:44 | PN ---
[facility] PROGRESS NOTE Date Patient Seen: Mar 15, 2024 Time of Visit:13:00 Supervising Physician: Ru Reyes MD Primary Care Physician: [Dr. Farmer] Outpatient Specialists: Dr. Aguilar-podiatry ] Inpatient Consults: [Dr. Aguilar-podiatry ] PROBLEM LIST: Right foot osteomyelitis-POA, [id number] Mild cellulitis of the right foot-POA Hyperglycemia 2/2 poorly-controlled diabetes mellitus-POA Nondisplaced fracture of the 2nd proximal phalanx-POA, per recent MRI result 02/13/2024 Right foot cellulitis-POA CAD s/p CABG x2 HLD HX of VRE on the right foot Prior long-term IV antibiotics for the right foot osteomyelitis PAD S/p abdominal aortogram on 10/26/2023 with intervention on the left [employer], with patent popliteal on the left and 3-vessel runoff to the right. Hx of successful shockwave lithotripsy and drug coated balloon angioplasty to left posterior tibial artery (10/26/2023) High-grade stenosis at the origin of the left tibioperoneal trunk and mid portion of the right posterior tibial artery with flow discontinuity per aorta w/run-off CTA report (11/19/2023) PLAN: -Admit to medsurg unit -Start on IV Linezolid and Cefepime for osteomyelitis coverage, deescalate as warranted -Obtain wound CX -Obtain arterial US on BLE -Most recent right foot MRI on 02/13/24 showed: FINDINGS: Abnormal linear areas are noted involving the second proximal phalanx also seen on previous study may be related to nondisplaced fractures. Increased signal intensities are again seen involving the second proximal phalanx, third toe, fourth toe and possibly fifth toe suggestive of osteomyelitis. Findings were also seen on previous study. There may be minimal improvement. Extensive cellulitis changes are also seen. -Will defer to genetic physician, Dr. Aguilar if further imaging studies were warranted since MRI was just done last month -Multimodal pain management -Neurovascular checks q4H and PRN INTERVAL HISTORY: on assessment of pt he is awake alert and oriented. eating burger and drinking coke. he has been afebrile and blood pressure stable. He is in no [place] dis tress. Dr Aguilar had come by and had performed wound care with betadine packing. on my arrival pt had dressing off with wound exposed. stated "it fell off" . Hemoglobin A1 C 11.9. instructed pt on importance of glucose control and how it slows down the healing of wounds. No response from pt we will have dietary consult for diabetic diet education. will add lantus 20 untis sq bid for long acting coverage, Blood cultures negative so far. pending wound cultures and further recs from Dr Aguilar. Pt continues on ABX with IV abx cefepime and zyvox he reports hx of VRE. we are awaiting cultures. REVIEW OF SYSTEMS: 12 point ROS reviewed with patient. Pertinent positives mentioned above. Otherwise negative. PHYSICAL EXAM: GENERAL: alert, awake oriented x 3 HEENT: EOMI, Sclera non icteric, moist mucosa NECK: Supple, no JVD, trachea midline LUNGS: Clear breath sounds bilaterally. No wheezes HEART: Regular rate and rhythm. Normal S1 and S2, without murmurs ABD: Abdomen soft, nontender. Bowel sounds present EXT: No clubbing or cyanosis, Mild edema of the right foot; right plantar foot with chronic wound draining yellowish discharge with foul-smell. Negative for neurovascular compromise, warm to touch, palpable pulses, capillary refill <3 secs NEURO: Alert and oriented to person, follows commands Vital Signs (last 8hr) Date Time Temp Pulse Resp B/P (MAP) Pulse Ox O2 Delivery O2 Flow Rate FiO2 03/15/24 19:00 98.2 81 22 100/49 93 Room Air LABS: Hematology Labs: Test 03/15/24 04:09 03/14/24 19:56 Range/Units White Blood Count 5.9 4.8-10.8 K/uL Red Blood Count 3.97 L 4.50-6.20 MIL/uL Hemoglobin 12.0 L 14.0-18.0 g/dL Hematocrit 35.3 L 42-54 % Mean Corpuscular Volume 88.9 79-99 fL Mean Corpuscular Hemoglobin 30.2 27.0-33.0 pg Mean Corpuscular Hemoglobin Concent 34.0 32.0-36.0 g/dL Red Cell Distribution Width 13.0 11.0-15.5 % Platelet Count 159 130-400 K/uL Mean Platelet Volume 11.6 H 7.5-10.5 fL Immature Granulocyte % (Auto) 0.2 0-1 % Neutrophils (%) (Auto) 40.2 40.0-77.0 % Lymphocytes (%) (Auto) 46.8 21.0-51.0 % Monocytes (%) (Auto) 10.8 3.0-13.0 % Eosinophils (%) (Auto) 1.5 0.0-8.0 % Basophils (%) (Auto) 0.5 0.0-5.0 % Neutrophils # (Auto) 2.4 1.8-7.7 K/uL Lymphocytes # (Auto) 2.8 1.0-4.8 K/uL Monocytes # (Auto) 0.6 0.1-1.0 K/uL Eosinophils # (Auto) 0.09 0.00-0.70 K/uL Basophils # (Auto) 0.03 0.00-0.20 K/uL Absolute Immature Granulocyte (auto 0.01 0-1 K/uL Nucleated Red Blood Cells 0.0 0.0-0.19 % Erythrocyte Sedimentation Rate 27 H 0-20 MM/HR Chemistry Labs: Test 03/15/24 19:54 03/15/24 04:09 03/14/24 23:46 03/14/24 19:56 Range/Units Whole Blood Glucose 389 H 70-110 MG/DL Sodium Level 140 136-145 mmol/L Potassium Level 3.4 L 3.5-5.1 mmol/L Chloride Level 104 101-111 mmol/L Carbon Dioxide Level 26 21-32 mmol/L Blood Urea Nitrogen 11 7-18 mg/dL Creatinine 0.7 0.5-1.3 mg/dL Glomerular Filtration Rate Calc 108 >90 mL/min Random Glucose 266 H 70-105 mg/dL Hemoglobin A1c 11.9 H 4.0-6.0 % Estimated Average Glucose (eAG) 295 H 70-126 mg/dL Total Calcium 8.2 L 8.5-10.1 mg/dL Phosphorus Level 3.1 2.5-4.9 mg/dL Magnesium Level 2.00 1.80-2.40 mg/dL Triglycerides Level 231 H 30-200 mg/dL Cholesterol Level 159 <200 mg/dL LDL Cholesterol 90 0-99 mg/dL HDL Cholesterol 36 29-71 mg/dL Bedside Glucose Comment Protocol Initiated Lactic Acid Level 2.0 0.8-2.5 mmol/L Total Creatine Kinase 134 # 21-232 U/L Troponin I High Sensitivity 7 4-75 ng/L Coagulation Labs: Test 03/15/24 04:09 Range/Units Prothrombin Time 10.2 9.6-11.6 SEC Prothromb Time International Ratio <= 0.93 0.85-1.15 DIAGNOSTICS / RADIOLOGY RESULTS: [ ] PLAN NEURO: Minimize central acting medications as possible. Maintain fall precautions, adequate lighting during the day PULMONARY: Supplemental 02 as needed. Maintain aspiration precautions at all times CARDIOVASCULAR: Follow hemodynamics. Vital signs per facility protocol GI & NUTRITION: Continue with nutritional support. Continue stool softeners and laxatives as needed. KIDNEYS & ELECTROLYTES: Strict monitoring of intake, output and overall fluid balance. Avoid nephrotoxic medications to the extent possible. Medications to be dosed according to renal function. Monitor electrolytes and replace as needed ENDOCRINE: Maintain blood glucose between 100-180 at all times. Hypoglycemia protocol in place INFECTIOUS DISEASE: Trend temperature, WBC and procalcitonin level Follow cultures, deescalate antibiotics as soon as possible. Panculture if new onset fever ONCOLOGY/HEMATOLOGY/COAGULATION: Monitor for s/s of bleeding Monitor hemoglobin, coagulation studies as needed SKIN: Pressure ulcer prevention per facility protocol Specialty mattress ORTHO/REHAB: Continue PT/OT Prophylaxis: Continue GI and DVT prophylaxis Code Status: Full Resuscitation Disposition: TBD Other: Total patient care time: 35 minutes BLANE TAVAREZ Mar 16, 2024 00:44
[2024-03-16 04:09] LABS: BASOPHILS # (AUTO) 0.02 K/uL (0.00-0.20); BASOPHILS % (AUTO) 0.4 % (0.0-5.0); EOSINOPHILS # (AUTO) 0.09 K/uL (0.00-0.70); HEMATOCRIT 36.2 % (42-54); IMMATURE GRANULOCYTE ABSOLUTE 0.01 K/uL (0-1); LYMPHOCYTES # (AUTO) 2.4 K/uL (1.0-4.8); LYMPHOCYTES % (AUTO) 52.4 % (21.0-51.0); MEAN CORPUSCULAR HEMOGLOBIN 29.8 pg (27.0-33.0); MEAN CORPUSCULAR VOLUME 87.7 fL (79-99); MONOCYTES # (AUTO) 0.5 K/uL (0.1-1.0); MONOCYTES % (AUTO) 10.8 % (3.0-13.0); NEUTROPHILS # (AUTO) 1.5 K/uL (1.8-7.7); NEUTROPHILS % (AUTO) 34.2 % (40.0-77.0); PLATELET COUNT (AUTO) 161 K/uL (130-400); RED BLOOD CELL COUNT(AUTO) 4.13 MIL/uL (4.50-6.20); RED CELL DISTRIBUTION WIDTH 12.9 % (11.0-15.5); WHITE BLOOD COUNT (AUTO) 4.5 K/uL (4.8-10.8)
[2024-03-16 04:36] LABS: ALBUMIN 2.8 g/dL (3.5-5.0); BILIRUBIN,TOTAL 0.4 mg/dL (0.2-1.0); CREATININE 0.7 mg/dL (0.5-1.3); POTASSIUM 3.6 mmol/L (3.5-5.1); TOTAL PROTEIN, SERUM 6.2 g/dL (6.0-8.3)
[2024-03-16] MEDS: INSULIN GLARgine 100 UNITS/ML 10 ML VIAL SQ SCH ×2 (06:46→21:18)
--- NOTE | 2024-03-16 07:53 | PN ---
SUBJECTIVE: The patient is a very pleasant 54-year-old diabetic, Latin-Pal[place] male, white count 4.5, H and H 12.3 and 36.5, platelets 161, glucose 271. Wound cultures pending. Blood cultures pending. The patient is receiving Zyvox and cefepime per Infectious Disease. The patient had x-rays, which are suggesting a third digit fracture at the base of the proximal phalanx. He has been followed for an ulcer to the plantar aspect of the second metatarsophalangeal joint area to the foot on the right. REVIEW OF SYSTEMS: CONSTITUTIONAL: No chills, no fevers, no night sweats, no nausea, vomiting, no diarrhea. HEENT: No problems with eyes, ears, nose or throat. CARDIOVASCULAR: He has no current chest pain, status post revascularization procedure on the right by the Cardiology Service. GENITOURINARY: BUN and creatinine 11 and 0.7. PSYCHIATRIC: Denied depression. MUSCULOSKELETAL: Bunions and hammertoes. INTEGUMENT: He has an ulcer sub second metatarsophalangeal joint, right 10 mm x 3 mm x 5 mm. Serosanguineous drainage. No abscesses formation. Mild periwound erythema, and cellulitis. PHYSICAL EXAMINATION: Today, feet are warm. He has palpable pedal pulses, absent protective sensation. Ulcer sub second metatarsophalangeal joint, right 10 mm x 3 mm x 5 mm, expressible serosanguineous drainage. No evidence of consolidated abscess formation. ASSESSMENT: Ulcer with cellulitis of the second metatarsophalangeal joint, history of chronic osteomyelitis of right foot, fracture to the third proximal phalanx noted radiographically. The patient is receiving Zyvox and cefepime. He has uncontrolled diabetes with an A1c of 11.9. PLAN: Nonweightbearing status and Betadine dressings. Awaiting results of his wound cultures. Continue with the Zyvox and cefepime for now continue to follow the patient closely while in-house. I see no need for surgical intervention on this patient at this time. TID: [id number] RECEIPT: [id number]
--- NOTE | 2024-03-16 11:07 | HMCIMG ---
US VENOUS DOPPLER BILATERAL REASON: r/o dvt COMPARISON: None Technique: Bilateral venous doppler ultrasound was performed with spectral analysis and color flow imaging technique. FINDINGS: There is a normal appearance of the common femoral, deep femoral, the profunda femoris and popliteal veins. Proximal calf veins appear normal as well. There is normal response to compression and augmentation. There is no evidence of deep venous thrombosis. IMPRESSION: Normal bilateral lower extremity venous Doppler ultrasound.
--- NOTE | 2024-03-16 12:09 | PN ---
[facility] PROGRESS NOTE Date Patient Seen: Mar 16, 2024 Time of Visit: 12:09 Supervising Physician: Ru Reyes MD Primary Care Physician: [Dr. Farmer] Outpatient Specialists: Dr. Aguilar-podiatry ] Inpatient Consults: [Dr. Aguilar-podiatry ] PROBLEM LIST: Right foot osteomyelitis-POA, [id number] Mild cellulitis of the right foot-POA +3+ GRAM NEGATIVE RODS uncontrolled T2DM HGA1C 11.9, -POA Non compliant with diabetic diet. 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 Hx of successful shockwave lithotripsy and drug coated balloon angioplasty to left posterior tibial artery (10/26/2023) High-grade stenosis at the origin of the left tibioperoneal trunk and mid portion of the right posterior tibial artery with flow discontinuity per aorta w/run-off CTA report (11/19/2023) PLAN: -Start on IV Linezolid and Cefepime for osteomyelitis coverage, deescalate as warranted -follow wound CX -Most recent right foot MRI on 02/13/24 showed: FINDINGS: Abnormal linear areas are noted involving the second proximal phalanx also seen on previous study may be related to nondisplaced fractures. Increased signal intensities are again seen involving the second proximal phalanx, third toe, fourth toe and possibly fifth toe suggestive of osteomyelitis. Findings were also seen on previous study. There may be minimal improvement. Extensive cellulitis changes are also seen. -Will defer to marketing clerk, Dr. Aguilar if further imaging studies were warranted since MRI was just done last month -Multimodal pain management -Neurovascular checks q4H and PRN INTERVAL HISTORY: 03/15/24-on assessment of pt he is awake alert and oriented. eating burger and drinking coke. he has been afebrile and blood pressure stable. He is in no [place] distress. Dr Aguilar had come by and had performed wound care with betadine packing. on my arrival pt had dressing off with wound exposed. stated "it fell off" . Hemoglobin A1 C 11.9. instructed pt on importance of glucose control and how it slows down the healing of wounds. No response from pt we will have dietary consult for diabetic diet education. will add lantus 20 untis sq bid for long acting coverage, Blood cultures negative so far. pending wound cultures and further recs from Dr Aguilar. Pt continues on ABX with IV abx cefepime and zyvox he reports hx of VRE. we are awaiting cultures. 03/16/24- Pt is aaox3, no major over night events. no plans for any procedures from podiatry recs. Awaiting results of wound cultures currently growing +3 gram neg rods, pending final. He continues w/ IV ABX w/ Zyvox and cefepime. Per Podiatry no need for surgical intervention at this time. Venous doppler neg for DVT to BLE. Arterial US to BLE : Atherosclerotic disease. Otherwise normal triphasic arterial waveforms noted of the lower extremity artery system. Hyperemic flow is seen in the right posterior tibial, anterior tibial and dorsalis pedal arteries. High-grade stenosis is seen in the left dorsalis pedal artery. Wound care per podiatry recs. REVIEW OF SYSTEMS: General: No malaise or fever. Neurological: No fainting episodes or seizures. HEENT: No nasal congestion or nasal secretion. Respiratory: No cough, shortness of breath, or wheezing Cardiac: No chest pain or palpitations. Gastrointestinal: No vomiting or diarrhea. Genitourinary: No dysuria hematuria. Skin: No rashes or lesions. Hematological: No bruises or bleeding. Musculoskeletal: No joint pains or arthralgias. Psychiatric: No depression or panic attacks. PHYSICAL EXAM: GENERAL: Alert, awake oriented x 3 HEENT: EOMI, Sclera non icteric, moist mucosa NECK: Supple, no JVD, trachea midline LUNGS: Clear breath sounds bilaterally. No wheezes HEART: Regular rate and rhythm. Normal S1 and S2, without murmurs ABD: Abdomen soft, nontender. Bowel sounds present EXT: No clubbing or cyanosis, Mild edema of the right foot; right plantar foot with chronic wound draining yellowish discharge with foul-smell. Negative for neurovascular compromise, warm to touch, palpable pulses, capillary refill <3 secs NEURO: Alert and oriented to person, follows commands Vital Signs (last 8hr) Date Time Temp Pulse Resp B/P (MAP) Pulse Ox O2 Delivery O2 Flow Rate FiO2 03/16/24 08:08 98.2 81 19 107/62 96 LABS: Hematology Labs: Test 03/16/24 03:57 03/14/24 19:56 Range/Units White Blood Count 4.5 L 4.8-10.8 K/uL Red Blood Count 4.13 L 4.50-6.20 MIL/uL Hemoglobin 12.3 L 14.0-18.0 g/dL Hematocrit 36.2 L 42-54 % Mean Corpuscular Volume 87.7 79-99 fL Mean Corpuscular Hemoglobin 29.8 27.0-33.0 pg Mean Corpuscular Hemoglobin Concent 34.0 32.0-36.0 g/dL Red Cell Distribution Width 12.9 11.0-15.5 % Platelet Count 161 130-400 K/uL Mean Platelet Volume 11.4 H 7.5-10.5 fL Immature Granulocyte % (Auto) 0.2 0-1 % Neutrophils (%) (Auto) 34.2 L 40.0-77.0 % Lymphocytes (%) (Auto) 52.4 H 21.0-51.0 % Monocytes (%) (Auto) 10.8 3.0-13.0 % Eosinophils (%) (Auto) 2.0 0.0-8.0 % Basophils (%) (Auto) 0.4 0.0-5.0 % Neutrophils # (Auto) 1.5 L 1.8-7.7 K/uL Lymphocytes # (Auto) 2.4 1.0-4.8 K/uL Monocytes # (Auto) 0.5 0.1-1.0 K/uL Eosinophils # (Auto) 0.09 0.00-0.70 K/uL Basophils # (Auto) 0.02 0.00-0.20 K/uL Absolute Immature Granulocyte (auto 0.01 0-1 K/uL Nucleated Red Blood Cells 0.0 0.0-0.19 % Erythrocyte Sedimentation Rate 27 H 0-20 MM/HR Chemistry Labs: Test 03/16/24 11:02 03/16/24 03:57 03/15/24 04:09 03/14/24 23:46 Range/Units Whole Blood Glucose 221 H 70-110 MG/DL Sodium Level 142 136-145 mmol/L Potassium Level 3.6 3.5-5.1 mmol/L Chloride Level 106 101-111 mmol/L Carbon Dioxide Level 26 21-32 mmol/L Blood Urea Nitrogen 10 7-18 mg/dL Creatinine 0.7 0.5-1.3 mg/dL Glomerular Filtration Rate Calc 108 >90 mL/min Random Glucose 271 H 70-105 mg/dL Lactic Acid Level 1.2 0.8-2.5 mmol/L Total Calcium 8.3 L 8.5-10.1 mg/dL Total Bilirubin 0.4 0.2-1.0 mg/dL Aspartate Amino Transf (AST/SGOT) 8 L 10-37 U/L Alanine Aminotransferase (ALT/SGPT) 15 12-78 U/L Alkaline Phosphatase 104 50-136 U/L Total Protein 6.2 6.0-8.3 g/dL Albumin 2.8 L 3.5-5.0 g/dL Hemoglobin A1c 11.9 H 4.0-6.0 % Estimated Average Glucose (eAG) 295 H 70-126 mg/dL Phosphorus Level 3.1 2.5-4.9 mg/dL Magnesium Level 2.00 1.80-2.40 mg/dL Triglycerides Level 231 H 30-200 mg/dL Cholesterol Level 159 <200 mg/dL LDL Cholesterol 90 0-99 mg/dL HDL Cholesterol 36 29-71 mg/dL Bedside Glucose Comment Protocol Initiated Test 03/14/24 19:56 Range/Units Total Creatine Kinase 134 # 21-232 U/L Troponin I High Sensitivity 7 4-75 ng/L Coagulation Labs: Test 03/15/24 04:09 Range/Units Prothrombin Time 10.2 9.6-11.6 SEC Prothromb Time International Ratio <= 0.93 0.85-1.15 DIAGNOSTICS / RADIOLOGY RESULTS: [ ]IMAGING REPORT Signed PATIENT: JOSE LUIS JONAS JR MR#: [id number] : 1970 SEX: M AGE: 54 LOCATION: 3AH ORDER 35 STATUS: ADM IN REPORT#: [id number] SERVICE 34 REASON: ARTERIAL STENOSIS OR OCCLUSION ORDERING PHYSICIAN: JEMIMA PARR PROCEDURE: ART B LE - US ARTERIAL BILAT LOW EXT DUPL US ARTERIAL BILAT LOW EXT DUPL HISTORY: Arterial stenosis/occlusion COMPARISON: None TECHNIQUE: Bilateral lower extremity arterial Doppler ultrasound study was performed. FINDINGS: Normal triphasic arterial waveforms are noted in the common femoral, deep femoral, superficial femoral, popliteal, posterior tibial and dorsalis pedal arteries. Hyperemic flow is seen in the right posterior tibial, anterior tibial and dorsalis pedal arteries. High-grade stenosis is seen in the left dorsalis pedal artery. On the right, the peak systolic velocity of the common femoral artery is 119 cm/s, the proximal femoral artery is 90 cm/s, the mid femoral artery is 93 cm/s, the distal femoral artery is 90 cm/s, the proximal popliteal artery is 79 cm/s, the distal popliteal artery is 80 cm/s, the anterior tibial artery is 48 cm/s, the posterior tibial artery artery is 108 cm/s,and the dorsalis pedal artery is 84 cm/s. On the left, the peak systolic velocity of the common femoral artery is 103 cm/s, the proximal femoral artery is 89 cm/s, the mid femoral artery is 88 cm/s, the distal femoral artery is 79 cm/s, the proximal popliteal artery is 73 cm/s, the distal popliteal artery is 55 cm/s, the anterior tibial artery is 63 cm/s, the posterior tibial artery artery is 22 cm/s,and the dorsalis pedal artery is 149 cm/s. IMPRESSION: 1. Atherosclerotic disease. 2. Otherwise normal triphasic arterial waveforms noted of the lower extremity artery system. Hyperemic flow is seen in the right posterior tibial, anterior tibial and dorsalis pedal arteries. High-grade stenosis is seen in the left dorsalis pedal artery. DICTATED BY: ART ROGEL MD DATE: 03/15/24 0008 ELECTRONICALLY SIGNED BY: ART ROGEL MD DATE: 03/15/2411 PLAN NEURO: Minimize central acting medications as possible. Maintain fall precautions, adequate lighting during the day PULMONARY: Supplemental 02 as needed. Maintain aspiration precautions at all times CARDIOVASCULAR: Follow hemodynamics. Vital signs per facility protocol GI & NUTRITION: Continue with nutritional support. Continue stool softeners and laxatives as needed. KIDNEYS & ELECTROLYTES: Strict monitoring of intake, output and overall fluid balance. Avoid nephrotoxic medications to the extent possible. Medications to be dosed according to renal function. Monitor electrolytes and replace as needed ENDOCRINE: Maintain blood glucose between 100-180 at all times. Hypoglycemia protocol in place INFECTIOUS DISEASE: Trend temperature, WBC and procalcitonin level Follow cultures, deescalate antibiotics as soon as possible. Panculture if new onset fever ONCOLOGY/HEMATOLOGY/COAGULATION: Monitor for s/s of bleeding Monitor hemoglobin, coagulation studies as needed SKIN: Pressure ulcer prevention per facility protocol Specialty mattress ORTHO/REHAB: Continue PT/OT Prophylaxis: Continue GI and DVT prophylaxis Code Status: Full Resuscitation Disposition: TBD Other: Total patient care time: 35 minutes BLANE TAVAREZ Mar 16, 2024 12:09
--- NOTE | 2024-03-16 15:07 | NUR ---
Nutrition consult per T2DM education Reviewed labs, notes, and medications. Pt with outside food, on 60 gm cho + low cholesterol, insulin, sedated, hyperglycemia 238, hypocalcemia 8.3 per chart review. Wt via standing scale, 75 %PO intake, last BM 03/15/24, no edema, well nourished per nursing. Daughter in room during visit. RD reviewed MNT for T2DM, Pt verbalized understanding. Pt reported he sees PCP 1x per month, no drinking, no MVI, on vit. D prescription. Recommendations: -Provide 60 gm cho + HH diet -Monitor PO intake -Monitor BM -If no BM >3 days consider stool softener -Monitor electrolytes -Replenish electrolytes per protocol -Monitor wts -Reweigh as able -Order Vit D, vit b-12 labs to rule out deficiencies -Provide b-complex QD -Recommend Pt to follow up with PCP -Monitor goals of care RD to follow + available for consult per protocol Addendum: 03/16/24 at [address] Amended: Links added.
[2024-03-16] MEDS: GABApentin 100 MG CAPSULE PO SCH ×2 (17:31→21:17)
[2024-03-16] MEDS: cloPIDOgrel 75MG TAB PO SCH (17:37)
[2024-03-17] VITALS (7 sets, daily range): BP systolic 103–134; BP diastolic 64–74; PULSE 64–91; RESP 17–21; TEMP 97.9–98.6; O2SAT 94–98
--- NOTE | 2024-03-17 06:46 | PN ---
SUBJECTIVE: The patient is a very pleasant 54-year-old diabetic, Latin-N[place]ien male with history of right foot osteomyelitis acute on chronic, right foot cellulitis, right foot ulcer with cultures 3+ Gram-negative rods, currently receiving IV cefepime, uncontrolled type 2 diabetes, hemoglobin A1c 11.9, noncompliant with diabetic diet, nondisplaced fracture of the third toe proximal phalanx per recent MRI 02/13/2024, coronary artery disease, status post coronary artery bypass grafting x 2, hyperlipidemia, history of VRE right foot, history of prolonged IV antibiotic therapy for right foot osteomyelitis, status post CTA of his abdominal aorta with runoff 10/26/2023 with intervention on the left posterior tibial artery, patent popliteal artery on the left and 3-vessel runoff to the right foot, history of successful shockwave lithotripsy with drug-coated balloon to the left posterior tibial artery 10/26/2023, high-grade stenosis origin of the left tibioperoneal trunk and mid portion of the right posterior tibial artery with flow discontinuity per CTA 11/19/2023. REVIEW OF SYSTEMS: CONSTITUTIONAL: No chills, no fevers, no night sweats, no nausea, no vomiting, no diarrhea. HEENT: No problems with eyes, ears, nose, or throat. CARDIOVASCULAR: Coronary artery disease, history of peripheral vascular disease. GENITOURINARY: No dysuria. BUN and creatinine 10 and 0.7. PSYCHIATRIC: Denied any depression. MUSCULOSKELETAL: Bunions and hammertoe deformities. INTEGUMENT: He has an ulceration subsecond metatarsophalangeal joint area to the foot on the right, it is approximately 10 x 3 x 5 mm. No abscess formation noted. Cultures are growing back 3+ Gram-negative rods. OBJECTIVE: His examination today shows his feet are warm. He has palpable pedal pulses. He has absent protective sensation. He has an ulcer to subsecond metatarsophalangeal joint on the right, 10 x 3 x 5 mm. He has serous and sanguinous drainage. No evidence of any abscess formation. He has periwound erythema. ASSESSMENT: Ulcer with cellulitis subsecond metatarsophalangeal joint on the right, history of chronic osteomyelitis of right foot, history of third proximal phalanx fracture. Cultures are growing back 3+ Gram-negative rods. Identification and sensitivity is pending. The patient is currently receiving Zyvox and cefepime. Hemoglobin A1c 11.9. PLAN: Nonweightbearing status on the right foot, Betadine dressings to the right foot. Awaiting results of the identification and sensitivities of the Gram-negative gregorio culture from the right foot. Continue with the Zyvox. Continue with the cefepime. Continue with local wound care and continue with offloading measures. TID: [id number] RECEIPT: [id number]
--- NOTE | 2024-03-17 13:24 | PN ---
[facility] PROGRESS NOTE Date Patient Seen: Mar 17, 2024 Time of Visit: 13:24 Supervising Physician: Cayden Ledesma MD Primary Care Physician: [Dr. Farmer] Outpatient Specialists: Dr. Aguilar-podiatry ] Inpatient Consults: [Dr. Aguilar-podiatry ] PROBLEM LIST: Right foot osteomyelitis-POA, [id number] Mild cellulitis of the right foot-POA +3+ GRAM NEGATIVE RODS uncontrolled T2DM HGA1C 11.9, -POA Non compliant with diabetic diet. 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 Hx of successful shockwave lithotripsy and drug coated balloon angioplasty to left posterior tibial artery (10/26/2023) High-grade stenosis at the origin of the left tibioperoneal trunk and mid portion of the right posterior tibial artery with flow discontinuity per aorta w/run-off CTA report (11/19/2023) PLAN: -Start on IV Linezolid and Cefepime for osteomyelitis coverage, deescalate as warranted -follow wound CX -Most recent right foot MRI on 02/13/24 showed: FINDINGS: Abnormal linear areas are noted involving the second proximal phalanx also seen on previous study may be related to nondisplaced fractures. Increased signal intensities are again seen involving the second proximal phalanx, third toe, fourth toe and possibly fifth toe suggestive of osteomyelitis. Findings were also seen on previous study. There may be minimal improvement. Extensive cellulitis changes are also seen. -Will defer to critical care paramedic, Dr. Aguilar if further imaging studies were warranted since MRI was just done last month -Multimodal pain management -Neurovascular checks q4H and PRN INTERVAL HISTORY: 03/15/24-on assessment of pt he is awake alert and oriented. eating burger and drinking coke. he has been afebrile and blood pressure stable. He is in no [place] distress. Dr Aguilar had come by and had performed wound care with betadine packing. on my arrival pt had dressing off with wound exposed. stated "it fell off" . Hemoglobin A1 C 11.9. instructed pt on importance of glucose control and how it slows down the healing of wounds. No response from pt we will have dietary consult for diabetic diet education. will add lantus 20 untis sq bid for long acting coverage, Blood cultures negative so far. pending wound cultures and further recs from Dr Aguilar. Pt continues on ABX with IV abx cefepime and zyvox he reports hx of VRE. we are awaiting cultures. 03/16/24- Pt is aaox3, no major over night events. no plans for any procedures from podiatry recs. Awaiting results of wound cultures currently growing +3 gram neg rods, pending final. He continues w/ IV ABX w/ Zyvox and cefepime. Per Podiatry no need for surgical intervention at this time. Venous doppler neg for DVT to BLE. Arterial US to BLE : Atherosclerotic disease. Otherwise normal triphasic arterial waveforms noted of the lower extremity artery system. Hyperemic flow is seen in the right posterior tibial, anterior tibial and dors bogdan pedal arteries. High-grade stenosis is seen in the left dorsalis pedal artery. Wound care per podiatry recs. REVIEW OF SYSTEMS: General: No malaise or fever. Neurological: No fainting episodes or seizures. HEENT: No nasal congestion or nasal secretion. Respiratory: No cough, shortness of breath, or wheezing Cardiac: No chest pain or palpitations. Gastrointestinal: No vomiting or diarrhea. Genitourinary: No dysuria hematuria. Skin: No rashes or lesions. Hematological: No bruises or bleeding. Musculoskeletal: No joint pains or arthralgias. Psychiatric: No depression or panic attacks. PHYSICAL EXAM: GENERAL: Alert, awake oriented x 3 HEENT: EOMI, Sclera non icteric, moist mucosa NECK: Supple, no JVD, trachea midline LUNGS: Clear breath sounds bilaterally. No wheezes HEART: Regular rate and rhythm. Normal S1 and S2, without murmurs ABD: Abdomen soft, nontender. Bowel sounds present EXT: No clubbing or cyanosis, Mild edema of the right foot; right plantar foot with chronic wound draining yellowish discharge with foul-smell. Negative for neurovascular compromise, warm to touch, palpable pulses, capillary refill <3 secs NEURO: Alert and oriented to person, follows commands Vital Signs (last 8hr) Date Time Temp Pulse Resp B/P (MAP) Pulse Ox O2 Delivery O2 Flow Rate FiO2 03/17/24 11:52 98.6 68 18 128/72 94 03/17/24 09:00 94 Room Air* 0 21 03/17/24 08:25 97.9 75 21 103/64 94 03/17/24 07:37 77 18 N/A Room Air 21 LABS: Hematology Labs: Test 03/16/24 03:57 Range/Units White Blood Count 4.5 L 4.8-10.8 K/uL Red Blood Count 4.13 L 4.50-6.20 MIL/uL Hemoglobin 12.3 L 14.0-18.0 g/dL Hematocrit 36.2 L 42-54 % Mean Corpuscular Volume 87.7 79-99 fL Mean Corpuscular Hemoglobin 29.8 27.0-33.0 pg Mean Corpuscular Hemoglobin Concent 34.0 32.0-36.0 g/dL Red Cell Distribution Width 12.9 11.0-15.5 % Platelet Count 161 130-400 K/uL Mean Platelet Volume 11.4 H 7.5-10.5 fL Immature Granulocyte % (Auto) 0.2 0-1 % Neutrophils (%) (Auto) 34.2 L 40.0-77.0 % Lymphocytes (%) (Auto) 52.4 H 21.0-51.0 % Monocytes (%) (Auto) 10.8 3.0-13.0 % Eosinophils (%) (Auto) 2.0 0.0-8.0 % Basophils (%) (Auto) 0.4 0.0-5.0 % Neutrophils # (Auto) 1.5 L 1.8-7.7 K/uL Lymphocytes # (Auto) 2.4 1.0-4.8 K/uL Monocytes # (Auto) 0.5 0.1-1.0 K/uL Eosinophils # (Auto) 0.09 0.00-0.70 K/uL Basophils # (Auto) 0.02 0.00-0.20 K/uL Absolute Immature Granulocyte (auto 0.01 0-1 K/uL Nucleated Red Blood Cells 0.0 0.0-0.19 % Chemistry Labs: Test 03/17/24 11:16 03/16/24 15:42 03/16/24 03:57 Range/Units Whole Blood Glucose 198 H 70-110 MG/DL Vitamin B12 Level 584 193-986 pg/mL Vitamin D 25-Hydroxy 12.8 30.0-100.0 ng/mL Sodium Level 142 136-145 mmol/L Potassium Level 3.6 3.5-5.1 mmol/L Chloride Level 106 101-111 mmol/L Carbon Dioxide Level 26 21-32 mmol/L Blood Urea Nitrogen 10 7-18 mg/dL Creatinine 0.7 0.5-1.3 mg/dL Glomerular Filtration Rate Calc 108 >90 mL/min Random Glucose 271 H 70-105 mg/dL Lactic Acid Level 1.2 0.8-2.5 mmol/L Total Calcium 8.3 L 8.5-10.1 mg/dL Total Bilirubin 0.4 0.2-1.0 mg/dL Aspartate Amino Transf (AST/SGOT) 8 L 10-37 U/L Alanine Aminotransferase (ALT/SGPT) 15 12-78 U/L Alkaline Phosphatase 104 50-136 U/L Total Protein 6.2 6.0-8.3 g/dL Albumin 2.8 L 3.5-5.0 g/dL DIAGNOSTICS / RADIOLOGY RESULTS: [ ] PLAN NEURO: Minimize central acting medications as possible. Maintain fall precautions, adequate lighting during the day PULMONARY: Supplemental 02 as needed. Maintain aspiration precautions at all times CARDIOVASCULAR: Follow hemodynamics. Vital signs per facility protocol GI & NUTRITION: Continue with nutritional support. Continue stool softeners and laxatives as needed. KIDNEYS & ELECTROLYTES: Strict monitoring of intake, output and overall fluid balance. Avoid nephrotoxic medications to the extent possible. Medications to be dosed according to renal function. Monitor electrolytes and replace as needed ENDOCRINE: Maintain blood glucose between 100-180 at all times. Hypoglycemia protocol in place INFECTIOUS DISEASE: Trend temperature, WBC and procalcitonin level Follow cultures, deescalate antibiotics as soon as possible. Panculture if new onset fever ONCOLOGY/HEMATOLOGY/COAGULATION: Monitor for s/s of bleeding Monitor hemoglobin, coagulation studies as needed SKIN: Pressure ulcer prevention per facility protocol Specialty mattress ORTHO/REHAB: Continue PT/OT Prophylaxis: Continue GI and DVT prophylaxis Code Status: Full Resuscitation Disposition: TBD Other: Total patient care time: 35 minutes BLANE TAVAREZP Mar 17, 2024 13:24
[2024-03-17] MEDS ORDERED: GABA100C PO (15:57)
--- NOTE | 2024-03-17 18:00 | NUR ---
DC NOTE DC INSTRUCTIONS AND FOLLOW UP APPOINTMENTS TO BE CALLED TUESDAY MORNING, PHONE NUMBERS PROVIDED FOR APPOINTMENT. PRINTED PRESCRIPTION PROVIDED TO PT AND SPOUSE. PIVS REMOVED, CATHETER INTACT, DENIES ANY PAIN OR DISCOMFORT. PT IS WHEELED DOWNSTAIRS WITH NEWS BROADCASTER INTO VIA PRIVATE CAR. NO FURTHER COMMENTS OR CONCERNS AT THIS TIME.
--- NOTE | 2024-03-18 02:28 | DS ---
[facility] DISCHARGE SUMMARY Date Patient Seen: Mar 14, 2024 Time of Visit: 13:24 Supervising Physician: Cayden Ledesma MD Primary Care Physician: [Dr. Farmer] Outpatient Specialists: Dr. Aguilar-podiatry ] Inpatient Consults: [Dr. Aguilar-podiatry ] PROBLEM LIST: Right foot osteomyelitis-POA, [id number] Mild cellulitis of the right foot-POA +3+ GRAM NEGATIVE RODS uncontrolled T2DM HGA1C 11.9, -POA Non compliant with diabetic diet. 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 Hx of successful shockwave lithotripsy and drug coated balloon angioplasty to left posterior tibial artery (10/26/2023) High-grade stenosis at the origin of the left tibioperoneal trunk and mid portion of the right posterior tibial artery with flow discontinuity per aorta w/run-off CTA report (11/19/2023) PLAN: -Start on IV Linezolid and Cefepime for osteomyelitis coverage, deescalate as warranted -follow wound CX -Most recent right foot MRI on 02/13/24 showed: FINDINGS: Abnormal linear areas are noted involving the second proximal phalanx also seen on previous study may be related to nondisplaced fractures. Increased signal intensities are again seen involving the second proximal phalanx, third toe, fourth toe and possibly fifth toe suggestive of osteomyelitis. Findings were also seen on previous study. There may be minimal improvement. Extensive cellulitis changes are also seen. -Will defer to descriptive catalog librarian, Dr. Aguilar if further imaging studies were warranted since MRI was just done last month -Multimodal pain management -Neurovascular checks q4H and PRN HOSPITAL COURSE: HPI [Patient is a 54-year-old male with PMH significant for CAD status post CABG x2, ASHLEY 1, DM, HLD and PVD who was presented to the ED concerning suspected i nfection on the right foot osteomyelitis site after he stepped on a [place] thorn 4 months ago. Patient claims that he was told by his descriptive catalog librarian to come back to the hospital if he noticed some changes on his wound such as discharges and foul smell. He claims, that yesterday, he started to notice some changes in smell on his wound. He was suspecting that it was beginning to get infected again. He just completed a long-term IV antibiotic through the PICC line 3 weeks ago. Today, he got worried because of the particular bad smell emanating from the wound with yellowish discharges. He denies fever, chills, nausea, vomiting, paresthesia or worsening pain on the affected leg or foot. At the ED, his preliminary lab works were unremarkable except for elevated blood sugar of 374. Patient is not meeting sepsis criteria. Right foot x-ray revealed chronic osteomyelitis of the third proximal phalanx. Patient claims that he just completed MRI studies about 4-5 weeks ago, he was not able to bring a copy of the result but [place] [facility] [place] patient was started on IV linezolid and Zosyn at the ED. Physical assessment was unrevealing except for mild cellulitis of the right foot with draining yellowish discharges from the right plantar foot. Goals of care were discussed with the patient verbalizing understanding and agreement. 03/15/24-on assessment of pt he is awake alert and oriented. eating burger and drinking coke. he has been afebrile and blood pressure stable. He is in no [place] distress. Dr Aguilar had come by and had performed wound care with betadine packing. on my arrival pt had dressing off with wound exposed. stated "it fell off" . Hemoglobin A1 C 11.9. instructed pt on importance of glucose control and how it slows down the healing of wounds. No response from pt we will have dietary consult for diabetic diet education. will add lantus 20 untis sq bid for long acting coverage, Blood cultures negative so far. pending wound cultures and further recs from Dr Aguilar. Pt continues on ABX with IV abx cefepime and zyvox he reports hx of VRE. we are awaiting cultures. 03/16/24- Pt is aaox3, no major over night events. no plans for any procedures from podiatry recs. Awaiting results of wound cultures currently growing +3 gram neg rods, pending final. He continues w/ IV ABX w/ Zyvox and cefepime. Per Podiatry no need for surgical intervention at this time. Venous doppler neg for DVT to BLE. Arterial US to BLE : Atherosclerotic disease. Otherwise normal triphasic arterial waveforms noted of the lower extremity artery system. Hyperemic flow is seen in the right posterior tibial, anterior tibial and dorsalis pedal arteries. High-grade stenosis is seen in the left dorsalis pedal artery. Wound care per podiatry recs. 03/17/24- pt is growing Proteus Mirabilis on rt foot wound. Dr Aguilar does not plan for any procedures during this admission. Pt has been seen by Dr Antonio ID specialist and new RX was given to pt for Cefuroxime 500mg PO BID x 6 weeks. It was given to his to fill RX before the pharmacy closed. He is in agreement to f/u with Dr Aguilar next week. He also agrees to f/u with Dr Antonio ID specialist. Pt does report having an appointment with Dr Self shadow graph weight operator to follow up on his PVD in 1 week. CHRONIC PROBLEMS: continue previous management per PCP unless otherwise indicated LOFT WORKER HEAD FINDINGS/RECOMMENDATIONS: Per ID RX was given to pt for Cefuroxime 500mg PO BID x 6 weeks, f/u with Dr Antonio in 1 week. Follow up with podiatry for wound care. PROCEDURES: as mentioned above DISCHARGE MEDICATIONS: RX was given to pt for Cefuroxime 500mg PO BID x 6 weeks, Pt hemodynamically stable and afebrile at time of discharge. PCP notified of patients admission, hospital course and discharge. New Medications: Gabapentin (Neurontin) 100 Mg Capsule 100 MG PO TID, #90 CAP 1 Refill as needed for leg pain neuropathy Continued Medications: Citalopram Hydrobromide (Citalopram HBr) 40 Mg Tablet 1 TAB PO DAILY Clopidogrel Bisulfate (Plavix) 75 Mg Tablet 75 MG PO AM, TAB Insulin Glargine,Hum.rec.anlog (Jluis Plunkett) 300 Unit/Ml (1.5 Ml) Insuln.pen 60 UNIT SQ AM, SYRINGE [Regular Insulin] () 30 UNITS SQ DAILYBKFST Simvastatin (Simvastatin) 80 Mg Tablet 80 MG PO AM, TAB PHYSICAL EXAM: GENERAL: Alert, awake oriented x 3 HEENT: EOMI, Sclera non icteric, moist mucosa NECK: Supple, no JVD, trachea midline LUNGS: Clear breath sounds bilaterally. No wheezes HEART: Regular rate and rhythm. Normal S1 and S2, without murmurs ABD: Abdomen soft, nontender. Bowel sounds present EXT: No clubbing or cyanosis, Mild edema of the right foot; right plantar foot with chronic wound draining yellowish discharge with foul-smell. Negative for neurovascular compromise, warm to touch, palpable pulses, capillary refill <3 secs NEURO: Alert and oriented to person, follows commands FOLLOW-UP: Follow-up with PCP in 2-3 days f/u with Dr Antonio in 1 week. Follow up with podiatry for wound care. RECOMMENDATIONS: See Discharge Instructions This case was seen and discussed with my supervising physician. More than 30 minutes spent on discharge process, including evaluation of the patient, discussion with nursing staff, medication reconciliation and follow-up appointme BLANE Duncan Mar 18, 2024 02:28
--- NOTE | 2024-03-18 06:09 | CONS ---
INFECTIOUS DISEASE CONSULTATION DATE OF SERVICE: 03/17/2024 REQUESTING PHYSICIAN: Marjorie Harris NP. REASON FOR CONSULTATION: Right foot osteomyelitis. HISTORY OF PRESENT ILLNESS: A 54-year-old male with coronary artery disease, hypertension, diabetes mellitus, presented to the hospital with right foot pain, swelling and redness. The patient noticed increased drainage from the plantar aspect of right foot. The patient recently completed antibiotic for right foot osteomyelitis. The patient had undergone surgery for debridement of the right foot plantar abscess that was well healed after completing the antibiotic. Wound culture done during this admission shows Proteus mirabilis. X-ray is showing osteomyelitis of the right third toe. The patient has been seen by tile shader, who advised to continue of antibiotic and wound care. PAST MEDICAL HISTORY: * Coronary artery disease. * Hypertension. * Diabetes mellitus. * Right foot ulcer and osteomyelitis. * Peripheral vascular disease. * Obesity. * Depression. * Dyslipidemia. PAST SURGICAL HISTORY: * CABG. * Right foot abscess drainage. * Cardiac catheterization. * Angiogram of lower extremities. * Left foot abscess debridement. ALLERGIES: IV IODINE. CURRENT MEDICATIONS: Reviewed, include: * . * Zosyn. SOCIAL HISTORY: Lives with . No alcohol, tobacco or illicit drugs. FAMILY HISTORY: Positive for diabetes mellitus. REVIEW OF SYSTEMS: Greater than 10 systems were reviewed and negative except as documented above. PHYSICAL EXAMINATION: GENERAL: A middle-aged male, awake. VITAL SIGNS: Temperature 98.6, pulse 60, respiratory rate 18, BP 128/78. EYES: No icterus. Pupils equal and reactive. HENT: No oral thrush seen. Moist oral mucosa. NECK: Supple, no JVD or thyromegaly. LUNGS: Good air entry. No rales, no rhonchi. CARDIOVASCULAR: S1, S2 regular. No murmur heard. ABDOMEN: Obese, soft, nontender. Bowel sound is present. CENTRAL NERVOUS SYSTEM: Awake, alert, oriented x 3. No focal deficits. SKIN: No rashes, no itchiness. LYMPHATIC: There is right inguinal lymphadenopathy. BACK: No deformity, no pressure ulcer. EXTREMITIES: Wound is involving plantar aspect of the right forefoot with purulent drainage is seen. LABORATORY DATA: Sodium 142, potassium 3.4, BUN 11, creatinine 0.7. WBC 4.3, hemoglobin 12.3, platelet 161. Right foot wound culture is growing Proteus mirabilis. Blood culture, no growth for 3 days. RADIOLOGY: X-ray of the right foot reported to the right third toe osteomyelitis. ASSESSMENT: A 54-year-old male presented with right foot pain and . Current problems include: * Right foot ulcer and abscess, status post bedside debridement. * Diabetic foot ulcer. * Hypokalemia. * Obesity. * Hypertension. * Right third toe osteomyelitis by imaging. PLAN: * Continue wound care. * Continue current management. * Continue Zosyn. * Continue antihypertensive. * Continue antidiabetic. * Continue nutritional support. * Monitor electrolytes. Thank you for allowing me to participate in the care of this patient. TID: [id number] RECEIPT: [id number]
== END 2024-03-17 18:02 | disposition home or self-care (01) | DRG 638 ==
LOC: EDH 19:04 → OBSVTOIN 21:36 → EDHIP 21:36 → 3AH 23:36
PROVIDERS: ADMIT Internal Medicine Critical Care Medicine; ATTEND Internal Medicine Critical Care Medicine
DX: E11.69 Type 2 diabetes mellitus with other specified complication (principal); L02.611 Cutaneous abscess of right foot; L03.115 Cellulitis of right lower limb; Z16.21 Resistance to vancomycin; L97.518 Non-pressure chronic ulcer of other part of right foot with other specified severity; M86.171 Other acute osteomyelitis, right ankle and foot; S92.514A Nondisplaced fracture of proximal phalanx of right lesser toe(s), initial encounter for closed fracture; E11.51 Type 2 diabetes mellitus with diabetic peripheral angiopathy without gangrene; I10 Essential (primary) hypertension; I25.10 Atherosclerotic heart disease of native coronary artery without angina pectoris; F32.A Depression, unspecified; B96.4 Proteus (mirabilis) (morganii) as the cause of diseases classified elsewhere; E11.621 Type 2 diabetes mellitus with foot ulcer; E66.9 Obesity, unspecified; E78.00 Pure hypercholesterolemia, unspecified; E87.6 Hypokalemia; Z95.1 Presence of aortocoronary bypass graft; Z91.119 Patient's noncompliance with dietary regimen due to unspecified reason; Z83.3 Family history of diabetes mellitus; Y93.89 Activity, other specified; Y92.89 Other specified places as the place of occurrence of the external cause; Y99.8 Other external cause status
CPT/HCPCS: 36415; 73630; 80048; 80053; 80061; 82306; 82550; 82607; 82948; 83036; 83605; 83735; 84100; 84484; 85025; 85610; 85651; 87040; 87070; 87076; 87086; 87186; 93925; 93970; 94664; 96365; 99285; G0378; J0692; J1650; J1815; J2020; J2270; J2543; J3370; 3370

== ENCOUNTER 2024-04-08 00:27 | Emergency (ER) | payer OTHER ==
[~2024-04-08] VITALS: Ht 162.6 cm; Wt 86.2 kg
[~2024-04-08 00:27] MED LIST changes: +GABA100C PO; +METO5TAB2 PO; +PANT40TA PO
--- NOTE | 2024-04-08 01:19 | ERN ---
General Chief Complaint: Other Problems Stated Complaint: RT UPPER ARM PICC ISSUES Time Seen by MD: 00:32 Time Seen by Midlevel: 00:32 Source: patient History of Present Illness Initial Comments Patient is a 54-year-old male presenting to the emergency department for a PICC line evaluation. Patient noticed small amount of bleeding to the PICC line site so he decided to report to the ER for further evaluation. Patient has no other complaints at this time. Allergies: Coded Allergies: Iodinated Contrast Media (Unverified Allergy, Mild, ITCHING, 03/21/19) rash Home Meds Active Scripts Pantoprazole Sodium (Protonix) 40 Mg Tablet.dr, 40 MG PO BIDAC, #60 TAB Prov:DIANA RICHARDSON MANAGER IMAGE 04/05/24 Metoclopramide HCl (Metoclopramide HCl) 5 Mg Tablet, 5 MG PO TIDAC, #30 TAB Prov:DIANA RICHARDSON MANAGER IMAGE 04/05/24 Gabapentin (Neurontin) 100 Mg Capsule, 100 MG PO TID, #90 CAP 1 Refill as needed for leg pain neuropathy Prov:BLANE TAVAREZ KNIT GOODS CUTTER HAND 03/17/24 Reported Medications Insulin Glargine,Hum.rec.anlog (Toujeamparo Solnoemiar) 300 Unit/Ml (1.5 Ml) Insuln.pen, 60 UNIT SQ AM, SYRINGE 10/22/23 Simvastatin (Simvastatin) 80 Mg Tablet, 80 MG PO AM, TAB 10/22/23 [Regular Insulin] No Conflict Check, 30 UNITS SQ DAILYBKFST 03/19/23 Citalopram Hydrobromide (Citalopram HBr) 40 Mg Tablet, 1 TAB PO DAILY 03/18/23 Clopidogrel Bisulfate (Plavix) 75 Mg Tablet, 75 MG PO AM, TAB Hold for three more days 03/19/19 Past Medical History Past Medical History: Diabetes-Type II, GI Bleed, High Cholesterol, Heart Disease Medical History Other: PVD/PAD, CELLULITIS, MRSA, E COLI Past Surgical History: CABG, None Surgical History Other: L LEG STENTS, L ARM SURGERY Family History Family History: Negative Social History Social History: Lives with family ROS Dictation CONSTITUTIONAL: Negative except for HPI HEAD/FACE: Negative except for HPI EENT: Negative except for HPI RESPIRATORY: Negative except for HPI GASTROINTESTINAL/ABDOMINAL: Negative except for HPI GENITOURINARY: Negative except for HPI MUSCULOSKELETAL: Negative except for HPI INTEGUMENTARY: Negative except for HPI NEUROLOGICAL/PSYCH: Negative except for HPI HEMATOLOGIC/LYMPHATIC: Negative except for HPI All Systems Negative, Except as noted above. 13 point review of systems assessed and all negative except for above. Physical Exam Physical Exam Dictation Vital Signs reviewed General Appearance: Alert, oriented x 3, no acute distress, well developed, nourished. Head and Face: non-traumatic. Eyes: PERRL, pink conjunctivas, eyelid no trauma, anterior chamber with arcus senilis. Ears: Pinnas intact and no signs of trauma or erythema ear canals clear and no discharge TM no erythema Nose: No discharge, no bleeding. Oropharynx: Mouth normal, tongue pink, pharynx clear,no erythema, tonsils no exudates, no abscesses noted, mucous membrane moist Neck: Supple, non-tender, no thyromegaly, no masses, no JVD, no bruits Breast:Deferred Chest:No tenderness, no crepitus, no paradoxical movement, no retractions Lungs:Clear, well-ventilated, symmetric, no rales, no wheezing, no rhonchi, no stridor, good breath sounds bilaterally Heart: Regular rate, regular rhythm, no murmur, no gallops Vascular: no peripheral edema, Abdomen: Soft, positive bowel sounds, nondistended, no guarding, nontender, no rebound, no masses no hepatomegaly, no splenomegaly, no Alcala's sign, no hernias. Rectal: Deferred Genital: Deferred Neurological: Normal speech, motor function intact, sensory function intact Musculoskeletal: Neck nontender, full range of motion, back nontender, full range of motion, Extremities: nontender, full range of motion Skin: Color pink, dry, no turgor, no rash, no lacerations, no abrasions, no contusions. Lymphatic: Deferred MDM MDM: Differential diagnosis:Patient is a 54-year-old male presenting to the emergency department for a PICC line evaluation. Patient noticed small amount of bleeding to the PICC line site so he decided to report to the ER for further evaluation. Patient has no other complaints at this time. Patient has no chest pain or shortness of breath. On physical examination the patient has a PICC line in place. There was some small amount of bleeding to the PICC line insertion site. This was redressed with no complications. The patient will be following up outpatient with Infectious Disease tomorrow morning. I offered a chest x-ray with the patient refused. Patient will be discharged home There are no social concerns with this patient. Prescription drug management Prescriptions will include: None Medical management and examination interpretation discussions were had by me with other qualified healthcare professionals as indicated for the patient's care. ED Course Orders Procedure Category Date Status Time Chest 1vw RAD 04/08/24 Logged 00:35 *Nursing CPOE 04/08/24 Transmitted Communication: 00:50 Vital Signs Date Time Temp Pulse Resp B/P (MAP) Pulse Ox O2 Delivery O2 Flow Rate FiO2 04/08/24 01:42 97.9 72 18 132/68 98 Room Air* 0 21 04/08/24 00:28 97.9 68 16 138/72 97 Room Air DX & DISP Disposition: Discharge Departure Impression: Primary Impression: Bleeding from PICC line Condition: Stable Referrals: AMANDA GUY MD (PCP) Time of Disposition: 01:19 I have reviewed the case, and I agree with, Diagnosis and Plan I performed the substantive portion of the visit. I have reviewed and personally made and approve the management plan that is documented in the note by myself or the LISETTE. I acknowledge for responsibility for the patient's management plan. KNE SNYDER Apr 08, 2024 01:19
--- NOTE | 2024-04-08 01:24 | NUR ---
DISCHARGE DELAY DUE TO CHEST X RAY ORDERED HAS NOT BEEN PERFORMED AT THIS TIME
[2024-04-08 01:42] VITALS: BP 132/68; PULSE 72; RESP 18; TEMP 97.9; O2SAT 98
== END 2024-04-08 03:03 | disposition home or self-care (01) ==
LOC: EDH 00:27
DX: T82.838A Hemorrhage due to vascular prosthetic devices, implants and grafts, initial encounter (principal); E11.51 Type 2 diabetes mellitus with diabetic peripheral angiopathy without gangrene; E78.00 Pure hypercholesterolemia, unspecified; Z79.899 Other long term (current) drug therapy; Z91.041 Radiographic dye allergy status; Z95.1 Presence of aortocoronary bypass graft; Y82.9 Unspecified medical devices associated with adverse incidents; Y92.89 Other specified places as the place of occurrence of the external cause
CPT/HCPCS: 99284

== ENCOUNTER → 2024-08-14 | Outpatient (CLI) | payer OTHER ==
[~2024-08-14] MED LIST changes: +TIRZ5PEN SQ
--- NOTE | 2024-08-14 16:44 | HMCIMG ---
US PELVIC NON-OB LIMITED REASON: Hecitancy of micturition COMPARISON: None TECHNIQUE: Limited ultrasound was performed of the bladder FINDINGS: There is normal sonographic appearance of the bladder. There are no focal masses. There is no wall thickening. Prevoid volume was 333 cc. Post void after the first attempt volume was 256 cc. Postvoid after the second attempt was 153 cc. Prostate is prominent at 4.2 x 4.2 x 3.8 cm, 35 cubic cc volume. IMPRESSION: 1. Normal. I right. 2. Large postvoid residual.
== END | disposition home or self-care (01) ==
LOC: RAH 14:22
PROVIDERS: ATTEND Internal Medicine
DX: R39.11 Hesitancy of micturition (principal)
CPT/HCPCS: 76857

== ENCOUNTER 2024-11-13 23:10 | Observation (INO) | payer OTHER ==
[~2024-11-13] VITALS: Ht 167.6 cm; Wt 85.8 kg
[~2024-11-13 23:10] MED LIST changes: -METO5TAB2 PO; +TAMS-55 PO
[2024-11-13] MEDS: 0.9%NACL 1000ML 1,000 ML IV ONE (23:48)
[2024-11-13 23:53] LABS: IMMATURE GRANULOCYTE ABSOLUTE 0.01 K/uL (0-1); NUCLEATED RED BLOOD CELLS 0.0 % (0.0-0.19); PLATELET COUNT (AUTO) 193 K/uL (130-400); RED BLOOD CELL COUNT(AUTO) 4.79 MIL/uL (4.50-6.20); RED CELL DISTRIBUTION WIDTH 12.2 % (11.0-15.5); WHITE BLOOD COUNT (AUTO) 7.2 K/uL (4.8-10.8)
[2024-11-14] VITALS (7 sets, daily range): BP systolic 115–136; BP diastolic 64–80; PULSE 76–90; RESP 18–20; TEMP 97.7–98.3; O2SAT 96–97
[2024-11-14 00:06] LABS: CREATININE 1.3 mg/dL (0.5-1.3); GLOMERULAR FILTR. RATE CALC 64.0 mL/min (>90); GLUCOSE,RANDOM 218.0 mg/dL (70-105); SODIUM SERUM 139.0 mmol/L (136-145); UREA NITROGEN, BLOOD 26.0 mg/dL (7-18)
[2024-11-14 00:11] LABS: ASPARTATE AMINOTRANSFERASE 17.0 U/L (10-37); TOTAL PROTEIN, SERUM 7.5 g/dL (6.0-8.3)
--- NOTE | 2024-11-14 00:50 | ERN ---
General Chief Complaint: Weakness Stated Complaint: C/O ACID REFLUX, WEAKNESS Time Seen by MD: 23:13 Source: patient History of Present Illness Initial Comments Patient is a 54-year-old gentleman coming in with multiple complaints. Per patient he has been feeling acid reflux for about a week. He states that along with the acid reflux he has been feeling really weak at times. No fever no chills. Patient also states he has a history of CABG x2. Allergies: Coded Allergies: Iodinated Contrast Media (Unverified Allergy, Mild, ITCHING, 03/21/19) rash Home Meds Active Scripts Pantoprazole Sodium (Protonix) 40 Mg Tablet.dr, 40 MG PO BIDAC, #60 TAB Prov:DIANA RICHARDSON CARDIOLOGY CONSULTANT 04/05/24 Gabapentin (Neurontin) 100 Mg Capsule, 100 MG PO TID, #90 CAP 1 Refill as needed for leg pain neuropathy Prov:BLANE TAVAREZ CHAIRPERSON ANESTHESIOLOGY 03/17/24 Reported Medications Tamsulosin HCl (Flomax) 0.4 Mg Cap.er.24h, 0.8 MG PO DAILY, CAPSULE. 08/18/24 Tirzepatide (Mounjaro) 5 Mg/0.5 Ml Pen.injctr, 0.5 MG SQ Q6D 08/17/24 Insulin Glargine,Hum.rec.anlog (Jluis Plunkett) 300 Unit/Ml (1.5 Ml) Insuln.pen, 60 UNIT SQ AM, SYRINGE 10/22/23 Simvastatin (Simvastatin) 80 Mg Tablet, 80 MG PO AM, TAB 10/22/23 [Regular Insulin] No Conflict Check, 30 UNITS SQ DAILYBKFST 03/19/23 Citalopram Hydrobromide (Citalopram HBr) 40 Mg Tablet, 1 TAB PO DAILY 03/18/23 Clopidogrel Bisulfate (Plavix) 75 Mg Tablet, 75 MG PO AM, TAB Hold for three more days 03/19/19 Past Medical History Past Medical History: Diabetes-Type II, High Cholesterol Medical History Other: PVD/PAD, CELLULITIS, MRSA, E COLI Past Surgical History: CABG Surgical History Other: FEET SX Family History Family History: Negative Social History Social History: Lives with family ROS Dictation CONSTITUTIONAL: No chills, no fever, weakness, no diaphoresis, no malaise. HEAD/FACE: No signs of trauma. EENT: No eye pain, no blurred vision, no tearing, no double vision, no ear pain, no ear discharge, no nose pain, no nasal congestion, no throat pain, no throat swelling, no mouth pain. RESPIRATORY: No cough, no orthopnea, no SOB, no stridor, no wheezing. CARDIOVASCULAR: No chest pain, no edema, no palpitations, no syncope. GASTROINTESTINAL/ABDOMINAL: abdominal pain, no constipation, no diarrhea, no nausea, no vomiting. GENITOURINARY: No abnormal discharge, no dysuria, no frequent urination, no hematuria. No complaints of pain in the genitals. MUSCULOSKELETAL: No back pain, no gout, no joint pain, no joint swelling, no muscle pain, no muscle stiffness, no neck pain. INTEGUMENTARY: No change in color, no change in hair/nails, no dryness, no lesion, no lumps, no rash. NEUROLOGICAL/PSYCH: No anxiety, not depressed, no emotional problem, no headache, no numbness, no pre-existing deficit, no history of seizures, no tremors, no weakness. HEMATOLOGIC/LYMPHATIC: Not anemic, no history of blood clots, no apparent bleeding, no bruising, glands not swollen. All Systems Negative, Except as Noted. Physical Exam Physical Exam Dictation VITAL SIGNS: Reviewed. GENERAL APPEARANCE: Alert, oriented x3, no acute distress, obese. HEAD AND FACE: Non-traumatic. EYES: PERRL, pink conjunctivas, eyelid no trauma, anterior chamber clear. EARS: Pinnas intact and no signs of trauma or erythema. Ear canals clear and no discharge. TMs no erythema. NOSE: No discharge, no bleeding. OROPHARYNX: Mouth normal, teeth no caries, tongue pink. Pharynx clear, no erythema. Tonsils no exudates, no abscesses noted. Mucous membrane moist. NECK: Supple, non-tender, no thyromegaly, no masses, no JVD, no bruits. BREAST: Deferred. CHEST: No tenderness, no crepitus, no paradoxical movement, no retractions. LUNGS: Clear, well-ventilated, symmetric, no rales, no wheezing, no rhonchi, no stridor, good breath sounds bilaterally. HEART: Regular rate, regular rhythm, no murmur, no gallops. VASCULAR: No peripheral edema. ABDOMEN: Soft, positive bowel sounds, nondistended, no guarding, nontender, no rebound, no masses no hepatomegaly, no splenomegaly, no Alcala's sign, no hernias. RECTAL: Deferred. GENITAL: Deferred. NEUROLOGICAL: Normal speech, gross motor function intact, gross sensory function intact. MUSCULOSKELETAL: Neck nontender, full range of motion, back nontender, full range of motion. EXTREMITIES: Nontender, full range of motion. SKIN: Color pink, dry, no turgor, no rash, no lacerations, no abrasions, no contusions. LYMPHATICS: Deferred. Results Laboratory and Microbiology Lab and Micro Result Laboratory Tests Test 11/13/24 23:46 11/14/24 01:19 11/14/24 03:14 White Blood Count 7.2 K/uL (4.8-10.8) Red Blood Count 4.79 MIL/uL (4.50-6.20) Hemoglobin 14.8 g/dL (14.0-18.0) Hematocrit 43.1 % (42-54) Mean Corpuscular Volume 90.0 fL (79-99) Mean Corpuscular Hemoglobin 30.9 pg (27.0-33.0) Mean Corpuscular Hemoglobin Concent 34.3 g/dL (32.0-36.0) Red Cell Distribution Width 12.2 % (11.0-15.5) Platelet Count 193 K/uL (130-400) Mean Platelet Volume 11.6 fL (7.5-10.5) H Immature Granulocyte % (Auto) 0.1 % (0-1) Neutrophils (%) (Auto) 51.7 % (40.0-77.0) Lymphocytes (%) (Auto) 40.6 % (21.0-51.0) Monocytes (%) (Auto) 6.4 % (3.0-13.0) Eosinophils (%) (Auto) 0.8 % (0.0-8.0) Basophils (%) (Auto) 0.4 % (0.0-5.0) Neutrophils # (Auto) 3.7 K/uL (1.8-7.7) Lymphocytes # (Auto) 2.9 K/uL (1.0-4.8) Monocytes # (Auto) 0.5 K/uL (0.1-1.0) Eosinophils # (Auto) 0.06 K/uL (0.00-0.70) Basophils # (Auto) 0.03 K/uL (0.00-0.20) Absolute Immature Granulocyte (auto 0.01 K/uL (0-1) Nucleated Red Blood Cells 0.0 % (0.0-0.19) Sodium Level 139 mmol/L (136-145) Potassium Level 4.2 mmol/L (3.5-5.1) Chloride Level 97 mmol/L (101-111) L Carbon Dioxide Level 24 mmol/L (21-32) Blood Urea Nitrogen 26 mg/dL (7-18) H Creatinine 1.3 mg/dL (0.5-1.3) Glomerular Filtration Rate Calc 64 mL/min (>90) Random Glucose 218 mg/dL (70-105) H Total Calcium 8.8 mg/dL (8.5-10.1) Total Bilirubin 0.6 mg/dL (0.2-1.0) Aspartate Amino Transf (AST/SGOT) 17 U/L (10-37) Alanine Aminotransferase (ALT/SGPT) 29 U/L (12-78) Alkaline Phosphatase 114 U/L (50-136) Troponin I High Sensitivity 9 ng/L (4-75) 10 ng/L (4-75) Total Protein 7.5 g/dL (6.0-8.3) Albumin 3.9 g/dL (3.5-5.0) Urine Color COLORLESS (YELLOW) Urine Appearance CLEAR (CLEAR) Urine pH 5.0 (5.0-8.0) Urine Specific [place] 1.032 (1.001-1.031) Urine Protein NEGATIVE mg/dL (NEGATIVE) Urine Glucose (UA) >=1000 mg/dL (NEGATIVE) H Urine Ketones 150 mg/dL (NEGATIVE) H Urine Occult Blood NEGATIVE (NEGATIVE) Urine Nitrate NEGATIVE (NEGATIVE) Urine Bilirubin NEGATIVE mg/dL (NEGATIVE) Urine Urobilinogen 0.2 mg/dL (0.2-1.0) Urine Leukocyte Esterase NEGATIVE Cira/uL Urine RBC 0-1 /HPF (0-1) Urine WBC 0-1 /HPF (0-1) Urine Squamous Epithelial Cells RARE /HPF (0-2) Urine Bacteria None /HPF (None Seen) Urine Opiates Screen NEGATIVE (NEGATIVE) Urine Barbiturates Screen NEGATIVE (NEGATIVE) Urine Phencyclidine Screen NEGATIVE (NEGATIVE) Urine Amphetamines Screen NEGATIVE (NEGATIVE) Urine Benzodiazepines Screen NEGATIVE (NEGATIVE) Urine Cocaine Screen NEGATIVE (NEGATIVE) Urine Marijuana (THC) Screen NEGATIVE (NEGATIVE) B-Type Natriuretic Peptide 13 pg/mL (0-100) Labs Reviewed?: Yes EKG/XRAY/US/CT/MRI EKG Comment 11/13/2024 time 11:13 p.m. Ventricular rate 103 Sinus tachycardia [place] [address] wave elevation or depression MDM MDM: Differential diagnosis:llp, weakness, dehydration Rationale: Tests considered and ordered secondary to shared decision making include: Previous outside records reviewed: Old ER visits. Risk of complication and/or morbidity or mortality of patient management: None Medications-Per medication reconciliation Need for hospitalization: Patient does not meet criteria for hospitalization. Need for emergency major/minor surgery: No There are no social concerns with this patient. Prescription drug management Prescriptions will include symptomatic care Patient's prior external medical records from other ER visits were reviewed by me as indicated. Prior testing and results from previous visits were reviewed. Prior tests were taken into account with medical decision making and resource utilization, independent historian/historians were used to obtain complete medical history. I independently interpreted the test that were performed, results were reviewed by me and considered findings on radiology if ordered. Medical management and examination interpretation discussions were had by me with other qualified healthcare professionals as indicated for the patient's care. Patient will be admitted under the care of [facility] for ongoing management ED Course Orders Procedure Category Date Status Time Cbc With Differential LAB 11/13/24 Complete 23:29 12 Lead Ekg Tracing- EKG 11/13/24 Logged Technical 23:29 0.9%Nacl 1000ml (Ns PHA 11/13/24 Complete 1000ml) 23:30 Troponin I High LAB 11/13/24 Complete Sensitivity 23:29 Comprehensive LAB 11/13/24 Complete Metabolic Panel 23:29 Urinalysis LAB 11/13/24 Complete W/Microscopic 23:29 Ondansetron 4mg Inj PHA 11/14/24 Complete (Zofran 4mg Inj) 01:00 Lidocaine Hcl 2% PHA 11/14/24 Complete Viscous (Lidocaine Hcl 01:00 Mag/Alum/Simeth 30ml PHA 11/14/24 Complete (Maalox Plus 30ml) 01:00 Chest 1vw RAD 11/14/24 Resulted 01:05 Drug Screen Urine LAB 11/14/24 Complete 01:05 Troponin I High LAB 11/14/24 Complete Sensitivity 02:30 B-Type Natriuretic LAB 11/14/24 Complete Peptide 02:31 Ceftriaxone 1g Vial PHA 11/14/24 Complete (Rocephine 1g Inj) 04:00 Azithromycin 500mg+Ns PHA 11/14/24 In Process 250ml (Azithromyci 04:00 Influenza Type A & B, LAB 11/14/24 Logged Rapid 03:49 Covid19 (Sars Antigen LAB 11/14/24 Logged Rapid) 03:49 Vital Signs Every 4 CPOE 11/14/24 Transmitted Hours 03:51 Daily Weights CPOE 11/14/24 Transmitted 03:51 I&O Q Shift CPOE 11/14/24 Transmitted 03:51 Activity: Ad Valeria CPOE 11/14/24 Transmitted 03:51 Heart Healthy Diet DIET 11/14/24 Transmitted Breakfast Albuterol 0.083% PHA 11/14/24 In Process 2.5mg/3ml (Proventil 04:00 Cbc With Differential LAB 11/15/24 Verified 04:00 Basic Metabolic Panel LAB 11/15/24 Verified 04:00 Magnesium LAB 11/15/24 Verified 04:00 Phosphorus LAB 11/15/24 Verified 04:00 Azithromycin 500mg+Ns PHA 11/15/24 In Process 250ml (Azithromyci 09:00 Ceftriaxone 1g Vial PHA 11/15/24 In Process (Rocephine 1g Inj) 09:00 Pantoprazole 40mg Tab PHA 11/14/24 In Process (Protonix 40mg Tab 09:00 Enoxaparin Sodium 40 PHA 11/14/24 In Process Mg/0.4 Ml (Lovenox) 09:00 Acetaminophen 325 Tab PHA 11/14/24 In Process (Tylenol 325mg Tab 04:00 Lactulose 20 Gm/30 Ml PHA 11/14/24 In Process Udcup (Constulose 04:00 Docusate Sodium 100 PHA 11/14/24 In Process Mg Cap (Colace 100mg 09:00 Ondansetron 4mg Inj PHA 11/14/24 In Process (Zofran 4mg Inj) 04:00 Clonidine Hcl 0.1 Mg PHA 11/14/24 In Process Tablet (Catapres 0. 04:00 Hydralazine 20mg Inj PHA 11/14/24 Complete (Apresoline 20mg In 04:00 Labetalol 20mg Syg PHA 11/14/24 In Process (Trandate 20mg Syg) 04:00 Apply Scds CPOE 11/14/24 Transmitted 03:51 Turn Patient Q2hrs CPOE 11/14/24 Transmitted 03:51 Elevate Hob At 30 CPOE 11/14/24 Transmitted Degrees 03:51 Admit Orders ADM 11/14/24 Transmitted 03:51 Condition: CPOE 11/14/24 Transmitted 03:51 Initiate EVERETTE 11/14/24 In Process Hyperglycemia Protoco 03:51 Cv Rt Incentive CPOE 11/14/24 Transmitted Spirometry 03:51 Initiate EVERETTE 11/14/24 In Process Hyperglycemia Protoco 04:02 Insulin Regular, PHA 11/14/24 Logged Human 3ml (Humulin R 07:30 Initiate Hypoglycemia EVERETTE 11/14/24 In Process Protocol 04:02 Dextrose 50%-Water PHA 11/14/24 Logged (D50w) 04:30 Glucagon 1mg Kit PHA 11/14/24 Logged (Glucagon 1mg Kit) 04:30 Current Medications Medications (Trade) Dose Ordered Sig/Anthony Route PRN Reason Start Time Stop Time Status Last Admin Dose Admin Acetaminophen (TYLenol 325MG TAB) 650 mg Q6H PRN PO FEVER/MILD PAIN LEVEL 1-3 11/14/24 04:00 12/14/24 03:59 Al Hydroxide/Mg Hydroxide (MAALox PLUS 30ML) 30 ml ONCE ONCE PO 11/14/24 01:00 11/14/24 01:01 DC 11/14/24 01:02 Albuterol Sulfate (Proventil 0.083% 2.5mg/3ml) 2.5 mg [id number] PRN IH SHORTNESS OF BREATH 11/14/24 04:00 12/14/24 03:59 Azithromycin 250 ml @ 250 mls/hr ONCE ONCE IVPB 11/14/24 04:00 11/14/24 04:59 Azithromycin (Azithromycin 500mg+NS 250ml) 500 mg DAILY IV 11/15/24 09:00 11/25/24 08:59 Ceftriaxone Sodium (ROCEphine 1G INJ) 1 gm ONCE ONCE IVPB 11/14/24 04:00 11/14/24 04:01 DC Ceftriaxone Sodium (ROCEphine 1G INJ) 2 gm DAILY IVP 11/15/24 09:00 11/25/24 08:59 Clonidine HCl (CATApres 0.1 mg TAB) 0.1 mg Q6H PRN PO IF SBP GREATER THAN 160 11/14/24 04:00 12/14/24 03:59 Dextrose (D50w) 50 ml AD PRN IV HYPOGLYCEMIA PROTOCOL 11/14/24 04:30 12/14/24 04:29 UNV Docusate Sodium (COLace 100MG CAP) 100 mg BID PO 11/14/24 09:00 12/14/24 08:59 Enoxaparin Sodium (Lovenox) 40 mg DAILY SQ 11/14/24 09:00 12/14/24 08:59 Glucagon (Glucagon 1mg Kit) 1 mg AD PRN IM HYPOGLYCEMIA PROTOCOL 11/14/24 04:30 12/14/24 04:29 UNV Hydralazine HCl (APRESOLine 20MG INJ) 10 mg Q6H PRN IV SBP GREATER THAN 180 11/14/24 04:00 11/14/24 04:03 DC Insulin Human Regular (humuLIN R 100 UNIT/ML 3ML) INSULIN SLIDING SCAL... ACHS SQ 11/14/24 07:30 12/14/24 07:29 UNV Labetalol HCl (TRANdate 20MG SYG) 10 mg Q2H PRN IV SBP GREATER THAN 180 11/14/24 04:00 12/14/24 03:59 Lactulose (Constulose 20gm/ 30ml Udcup) 20 gm Q6H PRN PO CONSTIPATION 11/14/24 04:00 12/14/24 03:59 Lidocaine HCl (Lidocaine HCl 2% Viscous) 10 ml ONCE ONCE PO 11/14/24 01:00 11/14/24 01:01 DC 11/14/24 01:02 Ondansetron HCl (zoFRAN 4MG INJ) 4 mg ONCE ONCE IVP 11/14/24 01:00 11/14/24 01:01 DC 11/14/24 01:02 Ondansetron HCl (zoFRAN 4MG INJ) 4 mg Q6H PRN IVP NAUSEA/VOMITING 11/14/24 04:00 12/14/24 03:59 Pantoprazole Sodium (PROTonix 40MG TAB) 40 mg DAILY PO 11/14/24 09:00 12/14/24 08:59 Sodium Chloride 1,000 ml @ 0 mls/hr ONCE ONCE IV 11/13/24 23:30 11/13/24 23:44 DC 11/13/24 23:48 Vital Signs Date Time Temp Pulse Resp B/P (MAP) Pulse Ox O2 Delivery O2 Flow Rate FiO2 11/13/24 23:12 98.8 102 20 122/75 96 Room Air DX & DISP Disposition: Inpatient Decision to Admit Time: 04:05 Departure Impression: Primary Impression: CAP (community acquired pneumonia) Additional Impression: History of coronary artery bypass graft Condition: Stable Referrals: AMANDA GUY MD (PCP) ABHINAV MARTE MD Nov 14, 2024 00:50
[2024-11-14] MEDS: LIDOCAINE HCL 2% VISCOUS 15 ML UDCUP PO ONE (01:02)
[2024-11-14] MEDS: MAG/ALUM/SIMETH 30 ML UDCUP PO ONE (01:02)
[2024-11-14 01:28] LABS: APPEARANCE,URINE CLEAR (CLEAR); GLUCOSE, URINE (UA) >=1000 mg/dL (NEGATIVE); LEUKOCYTE ESTERASE ,URINE NEGATIVE Leu/uL (NEGATIVE); NITRATE,URINE NEGATIVE (NEGATIVE); OCCULT BLOOD,URINE NEGATIVE (NEGATIVE); SQUAMOUS EPITHELIAL CELL,UR RARE /HPF (0-2)
--- NOTE | 2024-11-14 02:40 | HMCIMG ---
EXAM: CR Chest, 1 view CLINICAL HISTORY: Chest pain. COMPARISON: Chest radiograph dated 08/20/2024. FINDINGS: Diffuse ground glass haziness in the left lung garcia, concerning an infectious or inflammatory process. Linear subsegmental atelectatic bands in the left lower zone. Mild cardiomegaly. The right lung is clear. No large pleural effusion or pneumothorax. No acute osseous abnormality. IMPRESSION: Diffuse ground glass haziness in the left lung garcia, concerning an infectious or inflammatory process. Linear subsegmental atelectatic bands in the left lower zone. Mild cardiomegaly. Compared to the prior study, there is no significant interval change. /[place]
[2024-11-14 02:56] LABS: AMPHET/METH SCREEN,URINE NEGATIVE (NEGATIVE); BARBITURATE SCREEN, URINE NEGATIVE (NEGATIVE); CANNABINOID SCREEN,URINE NEGATIVE (NEGATIVE); COCAINE SCREEN,URINE NEGATIVE (NEGATIVE)
[2024-11-14] MEDS ORDERED: LACTULOSE 20 GM/30 ML UDCUP PO PRN (04:00)
[2024-11-14] MEDS ORDERED: ALBUTEROL 0.083% 2.5 MG/3 ML INH IH PRN (04:00)
[2024-11-14] MEDS ORDERED: DEXTROSE 50%-WATER 50 ML DISP.SYRIN IV PRN (04:30)
[2024-11-14] MEDS ORDERED: GLUCAGON 1MG KIT 1 MG ML IM PRN (04:30)
--- NOTE | 2024-11-14 05:36 | EKG ---
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
[2024-11-14] MEDS: AZITHROMYCIN 500MG+NS 250ML 250 ML IVPB ONE (05:50)
[2024-11-14] MEDS ORDERED: ALPR2TAB2 PO (06:42)
[2024-11-14] MEDS: ENOXAPARIN SODIUM 40 MG/0.4 ML SYRINGE SQ SCH (09:04)
--- NOTE | 2024-11-14 10:57 | NUR ---
DCP:HOME Pt currently lives with his Yessica Tabor [phone]. Pt does not have any home health or provider services. Pt states that he does use a walker. Pt states that he is able to complete ADLs independently. PCP is Dr. Emily Farmer and uses [facility] for any RX needs. At [place] pt will want to go home and family will assist with transportation. Addendum: 11/14/24 at 1100 by JONATHAN PECK SS Amended: Links added.
--- NOTE | 2024-11-14 14:49 | HP ---
[facility] HISTORY & PHYSICAL Date Patient Seen: Nov 14, 2024 Time of Visit: 14:49 Supervising Physician: Dr. Morales Primary Care Physician: Emily Farmer Outpatient Specialists: [ ] Inpatient Consults: [ ] PROBLEM LIST: Community-acquired pneumonia General fatigue Diabetes mellitus type 2 GERD Hypercholesteremia History of MRSA cellulitis HPI: Patient is a 54-year-old male who has come in and was admitted for shortness of breath and general fatigue also associated with acid reflux. Per patient's past history he has been diagnosed on previous admissions with GERD and gastritis. Patient takes Protonix 40 mg b.i.d. at home. Chest x-ray shows small infiltrates, likely early pneumonia. Patient will be started on antibiotic therapy held overnight for observation with a likely discharge tomorrow. Dyspnea is worse on exertion, patient with mild crackles on auscultation bilaterally. He has a nonproductive cough at this time, he is likely a candidate for discharge tomorrow morning. PAST MEDICAL HX: see above PAST SURGICAL HX: noncontributory SOCIAL HISTORY: No tobacco, ETOH, or illicit drug use Coded Allergies: Iodinated Contrast Media (Unverified Allergy, Mild, ITCHING, 03/21/19) rash REVIEW OF SYSTEMS: 12 point ROS reviewed with patient. Pertinent positives mentioned above. Otherwise negative. PHYSICAL EXAM: GENERAL: alert, weak, awake oriented x 3 HEENT: EOMI, Sclera non icteric, moist mucosa NECK: Supple, no JVD, trachea midline LUNGS: Clear breath sounds bilaterally. No wheezes HEART: Regular rate and rhythm. Normal S1 and S2, without murmurs ABD: Abdomen soft, nontender. Bowel sounds present EXT: No clubbing cyanosis or edema NEURO: Alert and oriented to person, follows commands Vital Signs (last 8hr) Date Time Temp Pulse Resp B/P (MAP) Pulse Ox O2 Delivery O2 Flow Rate FiO2 11/14/24 11:10 97.9 82 20 123/69 96 Room Air 11/14/24 09:06 Room Air* 0 21 11/14/24 07:41 87 18 N/A Room Air 21 LABS: Hematology Labs: Test 11/13/24 23:46 Range/Units White Blood Count 7.2 4.8-10.8 K/uL Red Blood Count 4.79 4.50-6.20 MIL/uL Hemoglobin 14.8 14.0-18.0 g/dL Hematocrit 43.1 42-54 % Mean Corpuscular Volume 90.0 79-99 fL Mean Corpuscular Hemoglobin 30.9 27.0-33.0 pg Mean Corpuscular Hemoglobin Concent 34.3 32.0-36.0 g/dL Red Cell Distribution Width 12.2 11.0-15.5 % Platelet Count 193 130-400 K/uL Mean Platelet Volume 11.6 H 7.5-10.5 fL Immature Granulocyte % (Auto) 0.1 0-1 % Neutrophils (%) (Auto) 51.7 40.0-77.0 % Lymphocytes (%) (Auto) 40.6 21.0-51.0 % Monocytes (%) (Auto) 6.4 3.0-13.0 % Eosinophils (%) (Auto) 0.8 0.0-8.0 % Basophils (%) (Auto) 0.4 0.0-5.0 % Neutrophils # (Auto) 3.7 1.8-7.7 K/uL Lymphocytes # (Auto) 2.9 1.0-4.8 K/uL Monocytes # (Auto) 0.5 0.1-1.0 K/uL Eosinophils # (Auto) 0.06 0.00-0.70 K/uL Basophils # (Auto) 0.03 0.00-0.20 K/uL Absolute Immature Granulocyte (auto 0.01 0-1 K/uL Nucleated Red Blood Cells 0.0 0.0-0.19 % Chemistry Labs: Test 11/14/24 11:20 11/14/24 03:14 11/13/24 23:46 Range/Units Whole Blood Glucose 81 70-110 MG/DL Troponin I High Sensitivity 10 4-75 ng/L B-Type Natriuretic Peptide 13 0-100 pg/mL Sodium Level 139 136-145 mmol/L Potassium Level 4.2 3.5-5.1 mmol/L Chloride Level 97 L 101-111 mmol/L Carbon Dioxide Level 24 21-32 mmol/L Blood Urea Nitrogen 26 H 7-18 mg/dL Creatinine 1.3 0.5-1.3 mg/dL Glomerular Filtration Rate Calc 64 >90 mL/min Random Glucose 218 H 70-105 mg/dL Total Calcium 8.8 8.5-10.1 mg/dL Total Bilirubin 0.6 0.2-1.0 mg/dL Aspartate Amino Transf (AST/SGOT) 17 10-37 U/L Alanine Aminotransferase (ALT/SGPT) 29 12-78 U/L Alkaline Phosphatase 114 50-136 U/L Total Protein 7.5 6.0-8.3 g/dL Albumin 3.9 3.5-5.0 g/dL DIAGNOSTICS / RADIOLOGY RESULTS: [ ] PLAN NEURO: Minimize central acting medications as possible. Maintain fall precautions, adequate lighting during the day PULMONARY: Supplemental 02 as needed. Maintain aspiration precautions at all times CARDIOVASCULAR: Follow hemodynamics. Vital signs per facility protocol GI & NUTRITION: Continue with nutritional support. Continue stool softeners and laxatives as needed. KIDNEYS & ELECTROLYTES: Strict monitoring of intake, output and overall fluid balance. Avoid nephrotoxic medications to the extent possible. Medications to be dosed according to renal function. Monitor electrolytes and replace as needed ENDOCRINE: Maintain blood glucose between 100-180 at all times. Hypoglycemia protocol in place INFECTIOUS DISEASE: Trend temperature, WBC and procalcitonin level Follow cultures, deescalate antibiotics as soon as possible. Panculture if new onset fever ONCOLOGY/HEMATOLOGY/COAGULATION: Monitor for s/s of bleeding Monitor hemoglobin, coagulation studies as needed SKIN: Pressure ulcer prevention per facility protocol Specialty mattress ORTHO/REHAB: Continue PT/OT Prophylaxis: Continue GI and DVT prophylaxis Code Status: Full Resuscitation Disposition: TBD Other: Total patient care time exceeds 35 minutes excluding all procedures. TALYA NORIEGA Nov 14, 2024 14:49
[2024-11-15] VITALS: BP 112/46; PULSE 83; RESP 20; TEMP 98.2
[2024-11-15 01:57] LABS: COVID19 (SARS ANTIGEN RAPID) PRESUMPTIVE NEGATIVE (NEGATIVE); INFLUENZA TYPE A Negative For Type A (NEGATIVE); INFLUENZA TYPE B Negative For Type B (NEGATIVE)
[2024-11-15 03:49] LABS: IMMATURE GRANULOCYTE ABSOLUTE 0.01 K/uL (0-1); NUCLEATED RED BLOOD CELLS 0.0 % (0.0-0.19); PLATELET COUNT (AUTO) 164 K/uL (130-400); RED BLOOD CELL COUNT(AUTO) 4.27 MIL/uL (4.50-6.20); RED CELL DISTRIBUTION WIDTH 12.4 % (11.0-15.5); WHITE BLOOD COUNT (AUTO) 7.0 K/uL (4.8-10.8)
[2024-11-15 04:00] VITALS: BP 120/74; PULSE 91; RESP 20; TEMP 98.5
[2024-11-15 04:07] LABS: CREATININE 1.0 mg/dL (0.5-1.3); GLOMERULAR FILTR. RATE CALC 88.0 mL/min (>90); GLUCOSE,RANDOM 206.0 mg/dL (70-105); PHOSPHORUS 3.1 mg/dL (2.5-4.9); SODIUM SERUM 140.0 mmol/L (136-145); UREA NITROGEN, BLOOD 18.0 mg/dL (7-18)
[2024-11-15 06:42] VITALS: PULSE 80; RESP 18; O2SAT 97
[2024-11-15 08:00] VITALS: BP 93/41; PULSE 79; RESP 19; TEMP 98
[2024-11-15 09:32] VITALS: O2SAT 96
[2024-11-15] MEDS: AZITHROMYCIN 500MG+NS 250ML IV SCH (09:32)
[2024-11-15 12:00] VITALS: BP 125/50; PULSE 80; RESP 20; TEMP 98.3
[2024-11-15] MEDS ORDERED: LEVO750T68 PO (12:30)
--- NOTE | 2024-11-15 14:11 | HMCIMG ---
EXAM: CR Chest, 1 View. CLINICAL HISTORY: pneumonia COMPARISON: None provided. FINDINGS: LUNGS: Emphysematous lung changes No active infiltrate PLEURAL SPACES: No evidence of pleural effusion or pneumothorax. MEDIASTINUM: Cardiac size and mediastinal contours within normal limits. BONES: No acute osseous abnormality. IMPRESSION: 1. Emphysematous lung changes 2. No active infiltrate /[place]
--- NOTE | 2024-11-15 14:28 | DS ---
[facility] DISCHARGE SUMMARY Date Patient Seen: Nov 15, 2024 Time of Visit: 14:23 Supervising Physician: Dr. Ledesma Primary Care Physician: Emily Farmer Outpatient Specialists: [ ] Inpatient Consults: [ ] PROBLEM LIST: Community-acquired pneumonia General fatigue Diabetes mellitus type 2 GERD Hypercholesteremia History of MRSA cellulitis HOSPITAL COURSE: HPI (per admitting provider) Patient is a 54-year-old male who has come in and was admitted for shortness of breath and general fatigue also associated with acid reflux. Per patient's past history he has been diagnosed on previous admissions with GERD and gastritis. Patient takes Protonix 40 mg b.i.d. at home. Chest x-ray shows small infiltrates, likely early pneumonia. Patient will be started on antibiotic therapy held overnight for observation with a likely discharge tomorrow. Dyspnea is worse on exertion, patient with mild crackles on auscultation bilaterally. He has a nonproductive cough at this time, he is likely a candidate for discharge tomorrow morning. The patient was treated for the following problems: Patient was admitted for general fatigue associated with his GERD. Radiology was reviewed with my attending and showed signs of early pneumonia which correlated with the patient's episodic shortness of breath specifically worse on exertion. Patient was started on Rocephin and azithromycin, kept overnight for observation. The morning of discharge patient states he is feeling much better, serologies returned COVID and flu negative. Patient is being discharged today with seven day course of Levaquin and advised to follow up with his PCP this week as well as with the [facility] in two weeks for further evaluation of the patient's possible emphysematous lung changes once current i nfection has resolved. 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 PCP notified of patients admission, hospital course and discharge. PHYSICAL EXAM: GENERAL: alert, weak, awake oriented x 3 HEENT: EOMI, Sclera non icteric, moist mucosa NECK: Supple, no JVD, trachea midline LUNGS: Clear breath sounds bilaterally. No wheezes HEART: Regular rate and rhythm. Normal S1 and S2, without murmurs ABD: Abdomen soft, nontender. Bowel sounds present EXT: No clubbing cyanosis or edema NEURO: Alert and oriented to person, follows commands FOLLOW-UP: Follow-up with PCP in 2-3 days [facility] in two weeks RECOMMENDATIONS: See Discharge Instructions Seven day course of 750 mg Levaquin daily. This case was seen and discussed with my supervising physician. More than 30 minutes spent on discharge process, including evaluation of the patient, discussion with nursing staff, medication reconciliation and follow-up appointments ATLYA NORIEGA Nov 15, 2024 14:28
--- NOTE | 2024-11-15 16:15 | NUR ---
PATIENT DISCHARGED PERIPHERAL IV REMOVED, CATHETER INTACT. DISCHARGE INSTRUCTIONS GIVEN. PRESCRIPTIONS FAXED TO PHARMACY. PATIENT AWARE TO F/U WITH PCP DR. GUY 11/20 AT 10:30 AM. ALL QUESTIONS ANSWERED. PATIENT TAKEN DOWN BY WHEELCHAIR.
== END 2024-11-15 16:10 | disposition home or self-care (01) ==
LOC: EDH 23:10 → EDHIP 11-14 03:51 → 4AH 11-14 04:49
PROVIDERS: ADMIT Internal Medicine Critical Care Medicine; ATTEND Internal Medicine Critical Care Medicine
DX: J18.9 Pneumonia, unspecified organism (principal); E11.51 Type 2 diabetes mellitus with diabetic peripheral angiopathy without gangrene; E78.00 Pure hypercholesterolemia, unspecified; K21.9 Gastro-esophageal reflux disease without esophagitis; K29.70 Gastritis, unspecified, without bleeding; Z86.14 Personal history of Methicillin resistant Staphylococcus aureus infection; Z95.1 Presence of aortocoronary bypass graft; Z20.822 Contact with and (suspected) exposure to COVID-19; Z79.899 Other long term (current) drug therapy; Z98.890 Other specified postprocedural states
CPT/HCPCS: 96361 ×2; 99285; 84484 ×2; 80053; 85025 ×2; 93005; 96372 ×2; 96365; 96366; 96375; 96367; 83880; 80305; 82948 ×5; 81001; 36415 ×3; 71045 ×2; 94664; 96376; 83735; 84100; 80048; 87804 ×2; 87426; J1815 ×2; G0378 ×36; J0696 ×2; J2405; J0456 ×2; J1650 ×2

== ENCOUNTER 2024-11-24 00:21 | Emergency (ER) | payer OTHER ==
[~2024-11-24] VITALS: Ht 167.6 cm; Wt 87.1 kg
[~2024-11-24 00:21] MED LIST changes: +ALPR2TAB2 PO; +LEVO750T68 PO
--- NOTE | 2024-11-24 00:53 | NUR ---
REPORT CALLED INTO [facility]'S DEPARTEMENT, THEY WILL SEND AN OFFICER NOW.
[2024-11-24] MEDS ORDERED: MUPI22O TP (00:55)
[2024-11-24] MEDS ORDERED: AMOX1TAB16 PO (00:55)
--- NOTE | 2024-11-24 00:56 | ERN ---
ED Note History of Present Illness Stated Complaint: DOG BITE Chief Complaint: Animal Bite Time Seen by MD: 00:36 Dictation: PATIENT IS A 54-YEAR-OLD MALE COMING IN TODAY WITH COMPLAINTS OF A DOG BITE TO THE LEFT POSTERIOR CALF ONSET WAS APPROXIMATE 1-1/2 HOURS PRIOR TO ARRIVAL. 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, GOT OUT OF HIS TRUCK WHEN A DOG BIT HIM TO THE BACK OF HIS CALF. HE STATES HE HAS SEEN THE DOG BEFORE AND HANGS AROUND HIS STORE. VACCINATION STATUS IS UNKNOWN OF THE DOG HOWEVER THAT HE WAS NOT ACTING STRANGE. PATIENT STATES LAST TETANUS SHOT IS UNKNOWN HE HAS A DIABETIC. LAW ENFORCEMENT HAS NOT BEEN NOTIFY. Allergies: Coded Allergies: Iodinated Contrast Media (Unverified Allergy, Mild, ITCHING, 03/21/19) rash Home Meds Active Scripts Levofloxacin (Levaquin 750Mg Tabs) 750 Mg Tablet, 1 TAB PO DAILY for 7 Days, #7 TAB 0 Refills Prov:TALYA NORIEGA PA 11/15/24 Pantoprazole Sodium (Protonix) 40 Mg Tablet., 40 MG PO BIDAC for GASTRITIS, #60 TAB Prov:DIANA RICHARDSON MAGNETIC TESTER 04/05/24 Gabapentin (Neurontin) 100 Mg Capsule, 100 MG PO TID, #90 CAP 1 Refill as needed for leg pain neuropathy Prov:BLANE TAVAREZ WAFER SUBSTRATE TESTER 03/17/24 Reported Medications Alprazolam (Xanax) 2 Mg Tablet, 2 MG PO AD for ANXIETY, TAB 11/14/24 Tamsulosin HCl (Flomax) 0.4 Mg Cap.er.24h, 0.8 MG PO DAILY, CAPSULE. 08/18/24 Tirzepatide (Mounjaro) 5 Mg/0.5 Ml Pen.injctr, 0.5 MG SQ Q6D 08/17/24 Insulin Glargine,Hum.rec.anlog (Jluis Plunkett) 300 Unit/Ml (1.5 Ml) Insuln.pen, 60 UNIT SQ AM, SYRINGE 10/22/23 Simvastatin (Simvastatin) 80 Mg Tablet, 80 MG PO AM, TAB 10/22/23 [Regular Insulin] No Conflict Check, 30 UNITS SQ DAILYBKFST 03/19/23 Citalopram Hydrobromide (Citalopram HBr) 40 Mg Tablet, 1 TAB PO DAILY 03/18/23 Clopidogrel Bisulfate (Plavix) 75 Mg Tablet, 75 MG PO AM, TAB Hold for three more days 03/19/19 Past Medical History Past Medical History: Diabetes-Type II, High Cholesterol Additional Past Medical Hx: PVD/PAD, CELLULITIS, MRSA, E COLI, ESBL Surgical History: CABG Surgical History Other: RT TOES, BILATERAL FEET Family History: Negative Social History: Lives with family RN Note Reviewed/Agreed w/PFSH: Yes Review of System Dictation CONSTITUTIONAL: NEGATIVE EXCEPT FOR HPI HEAD/FACE: NEGATIVE EXCEPT FOR HPI EENT: NEGATIVE EXCEPT FOR HPI RESPIRATORY: NEGATIVE EXCEPT FOR HPI GASTROINTESTINAL/ABDOMINAL: NEGATIVE EXCEPT FOR HPI GENITOURINARY: NEGATIVE EXCEPT FOR HPI MUSCULOSKELETAL: NEGATIVE EXCEPT FOR HPI DOG BITE LEFT POSTERIOR CALF MEDIALLY INTEGUMENTARY: NEGATIVE EXCEPT FOR HPI NEUROLOGICAL/PSYCH: NEGATIVE EXCEPT FOR HPI HEMATOLOGIC/LYMPHATIC: NEGATIVE EXCEPT FOR HPI ALL SYSTEMS NEGATIVE, EXCEPT NOTED ABOVE. 13 POINT REVIEW OF SYSTEMS ASSESSED AND ALL NEGATIVE EXCEPT FOR ABOVE. Initial Vital Sign VS Vital Signs Date Time Temp Pulse Resp B/P (MAP) Pulse Ox O2 Delivery O2 Flow Rate FiO2 11/24/24 00:23 98.2 97 20 126/94 97 Room Air Physical Exam Dictation VITAL SIGNS REVIEWED GENERAL APPEARANCE: ALERT, ORIENTED X 3, MILD ACUTE DISTRESS, WELL DEVELOPED, NOURISHED. HEAD AND FACE: NON-TRAUMATIC. EYES: PERRL, PINK CONJUNCTIVAS, EYELID NO TRAUMA, ANTERIOR CHAMBER WITH ARCUS SENILIS. EARS: PINNAS INTACT AND NO SIGNS OF TRAUMA OR ERYTHEMA EAR CANALS CLEAR AND NO DISCHARGE TM NO ERYTHEMA NOSE: NO DISCHARGE, NO BLEEDING. OROPHARYNX: MOUTH NORMAL, TONGUE PINK, PHARYNX CLEAR,NO ERYTHEMA, TONSILS NO EXUDATES, NO ABSCESSES NOTED, MUCOUS MEMBRANE MOIST NECK: SUPPLE, NON-TENDER, NO THYROMEGALY, NO MASSES, NO JVD, NO BRUITS BREAST:DEFERRED CHEST:NO TENDERNESS, NO CREPITUS, NO PARADOXICAL MOVEMENT, NO RETRACTIONS LUNGS:CLEAR, WELL-VENTILATED, SYMMETRIC, NO RALES, NO WHEEZING, NO RHONCHI, NO STRIDOR, GOOD BREATH SOUNDS BILATERALLY HEART: REGULAR RATE, REGULAR RHYTHM, NO MURMUR, NO GALLOPS VASCULAR: NO PERIPHERAL EDEMA, ABDOMEN: SOFT, POSITIVE BOWEL SOUNDS, NONDISTENDED, NO GUARDING, NONTENDER, NO REBOUND, NO MASSES NO HEPATOMEGALY, NO SPLENOMEGALY, NO HILTON'S SIGN, NO HERNIAS. RECTAL: DEFERRED GENITAL: DEFERRED NEUROLOGICAL: NORMAL SPEECH, MOTOR FUNCTION INTACT, SENSORY FUNCTION INTACT MUSCULOSKELETAL: NECK NONTENDER, FULL RANGE OF MOTION, BACK NONTENDER, FULL RANGE OF MOTION, EXTREMITIES: DOG BITE TO HER MEDIAL LEFT POSTERIOR CALF SUPERFICIAL. MILD SWELLING NOTED SKIN: COLOR PINK, DOG BITE LEFT CALF LYMPHATIC: DEFERRED ED Course ED Course Orders Procedure Category Date Status Time Tetanus,Diphtheria PHA 11/24/24 Verified Tox [Adult] (Diphther 01:00 Acetaminophen 500mg PHA 11/24/24 Verified Tab (Tylenol 500mg T 01:00 Amox/Clav 875/125mg PHA 11/24/24 Verified Tab (Augmentin 875-1 01:00 *Nursing CPOE 11/24/24 Verified Communication: 00:49 Vital Signs Date Time Temp Pulse Resp B/P (MAP) Pulse Ox O2 Delivery O2 Flow Rate FiO2 11/24/24 00:23 98.2 97 20 126/94 97 Room Air 0050/PATIENT WAS MADE AWARE THAT WE WILL UPDATE TETANUS START AUGMENTIN AND CONTROL PAIN. IN ADDITION HE IS AWARE THAT WE WILL NOTIFY LAW ENFORCEMENT HE IS STILL COMPLETE THE REPORT WITH THE POLICE DEPARTMENT AND SEE HIS DOCTOR ON TUESDAY HE AGREED Medical Decision Making MDM MEDICAL DECISION-MAKING BASED ON EMPIRIC TREATMENT FOR A DOG BITE TO LEFT CALF. LAW ENFORCEMENT WAS NOTIFIED AUGMENTIN 875 WAS INITIATED TETANUS SHOT WAS GIVEN TYLENOL WAS GIVEN FOR PAIN. FOLLOW UP INSTRUCTIONS WAS GIVEN TO PATIENT FOR LAW ENFORCEMENT IN HIS PRIMARY CARE DOCTOR DX & DISP Disposition: Discharge Departure Impression: Primary Impression: Dog bite of left calf Condition: Stable Scripts Mupirocin (Bactroban 2% Oint) 2 % Oint 1 APPL TP TID for 5 Days, #15 GM 0 Refills apply to affected area(s) Prov: RYAN HODGSON MAGNETIC TESTER 11/24/24 Amoxicillin/Potassium Clav (Amox Tr-K Clv 875-125 mg Tab) 875 Mg-125 Mg Tablet 1 EACH PO BID for 7 Days, #14 TAB 0 Refills Prov: RYAN HODGSON MAGNETIC TESTER 11/24/24 Additional Instructions: FOLLOW-UP WITH PRIMARY CARE PROVIDER IN 1 TO 2 DAYS. TAKE MEDICATIONS DIRECTED HERE IN THE EMERGENCY ROOM. OKAY TO CONTINUE HOME MEDICATIONS UNLESS OTHERWISE DISCUSSED DURING YOUR VISIT IN THE EMERGENCY ROOM TODAY. RETURN TO YOUR NEAREST EMERGENCY ROOM IF SYMPTOMS WORSEN OR IF THERE IS NO IMPROVEMENT. CALL 911 IF YOU NEED IMMEDIATE ASSISTANCE. TAKE TYLENOL OR MOTRIN [id number] NEEDED AND IF NO CONTRAINDICATIONS ARE PRESENT. INCREASE ORAL HYDRATION. A WOUND CULTURE OR URINE CULTURE WAS ORDERED HERE IN THE EMERGENCY ROOM DEPARTMENT PLEASE FOLLOW-UP WITH PRIMARY CARE PROVIDER AND ADVISE THEM TO GET REPEAT PORTS FROM OUR FACILITY. IF YOU HAD ANY BRISEYDA WRAP/SPLINTS THAT WERE APPLIED HERE, PLEASE DO NOT REMOVE THEM UNTIL YOU SEE YOUR PRIMARY CARE OR SPECI TAKE ANTIBIOTICS DIRECTED UNTIL GONE. COMPLETE THE POLICE REPORT TONIGHT FOR THE DOG BITE. SEE YOUR PRIMARY CARE DOCTOR ON TUESDAY WITHOUT FAIL FOR FOLLOW UP WITH YOUR DOCTOR DUE TO HIGH-RISK WITH DIABETES Referrals: AMANDA GUY MD (PCP) Time of Disposition: 00:54 I have reviewed the case, and I agree with, Diagnosis and Plan RYAN HODGSON NP Nov 24, 2024 00:56
[2024-11-24] MEDS: AMOX/CLAV 875/125MG TAB PO ONE (01:04)
[2024-11-24 01:19] VITALS: BP 132/76; PULSE 90; RESP 18; TEMP 98.3; O2SAT 98
--- NOTE | 2024-11-24 01:38 | NUR ---
GERMÁN SANDOVAL GOT REPORT FROM PATIENT AT THIS TIME.
== END 2024-11-24 01:39 | disposition home or self-care (01) ==
LOC: EDH 00:21
DX: S81.832A Puncture wound without foreign body, left lower leg, initial encounter (principal); E11.51 Type 2 diabetes mellitus with diabetic peripheral angiopathy without gangrene; E78.00 Pure hypercholesterolemia, unspecified; Z79.899 Other long term (current) drug therapy; Z91.041 Radiographic dye allergy status; Z95.1 Presence of aortocoronary bypass graft; W54.0XXA Bitten by dog, initial encounter; Y93.89 Activity, other specified; Y92.89 Other specified places as the place of occurrence of the external cause; Y99.8 Other external cause status
CPT/HCPCS: 90471; 90714; 99283

== ENCOUNTER → 2025-01-22 | Outpatient (CLI) | payer OTHER ==
[~2025-01-22] MED LIST changes: +AMOX1TAB16 PO; +MUPI22O TP
--- NOTE | 2025-01-24 09:26 | HMCIMG ---
CLINICAL INDICATION: Asymptomatic menopausal state COMPARISON: None for comparison TECHNIQUE: Bone densitometry is performed of the lumbar spine and left hip. FINDINGS: Total BMD of lumbar spine is 1.053 g/cm2 with a T-score of -0.3 and Z-score is 0.2. Total BMD of left hip is 0.995 g/cm2 with a T-score of -0.5 and Z-score is -0.2. FRAX SCORE: The 10 year fracture risk for a major osteoporotic fracture and hip fracture major osteoporotic fracture 2.8 percent and hip fracture 0.2% IMPRESSION: 1. Normal lumbar spine 2. Osteopenia of left hip recommend follow-up in 13 months World Health Organization criteria for BMD interpretation classify patients as Normal (T-score at or above -1.0), Osteopenic (T-score between -1.0 and -2.5), or Osteoporotic (T-score at or below -2.5). FRAX SCORE: A. All treatment decisions require clinical judgment and consideration of individual patient factors, including patient preferences, comorbidities, previous drug use, risk factors not captured in the FRAX model (e.g., frailty, falls, vitamin D deficiency, increased bone turnover, interval significant decline in bone density) and possible [id number]-estimation of fracture risk by FRAX. B. In addition, the NOF Guide recommends that FDA-approved medical therapies be considered in postmenopausal women and men age greater than or equal to 50 years with a: i. Hip or vertebral (clinical or morphometric) fracture. ii. T-score of less than or equal to -2.5 at the spine or hip. iii. Ten-year fracture probability by FRAX of greater than or equal to 3% for hip fracture of greater than or equal to 20% for major osteoporotic fracture.
== END | disposition home or self-care (01) ==
LOC: RAH 10:42
PROVIDERS: ATTEND Internal Medicine
DX: M85.88 Other specified disorders of bone density and structure, other site (principal)
CPT/HCPCS: 77080